=== PATIENT | male | born 1945 | race Caucasian/White ===

== ENCOUNTER 2020-07-27 21:09 | Emergency (ER) | payer MEDICARE, SELFPAY ==
[2020-07-27 21:10] VITALS: BP 131/75; PULSE 85; RESP 20; TEMP 35.7; O2SAT 96; BMI 18.0
--- NOTE | 2020-07-27 22:26 | ED_ITS ---
HPI - General Adult General Chief complaint: General Medical <Trenton Sanders MD - Last Filed: 07/28/20 01:43> Stated complaint: HALLAUCINATIONS <Trenton Sanders MD - Last Filed: 07/28/20 01:43> Time Seen by Provider: 07/27/20 22:26 <Trenton Sanders MD - Last Filed: 07/28/20 01:43> Source: patient <Trenton Sanders MD - Last Filed: 07/28/20 01:43> Mode of arrival: ambulatory <Trenton Sanders MD - Last Filed: 07/28/20 01:43> History of Present Illness HPI narrative: patient states that he has a history of hallucinations. patient states he is seeing people walking around with things on their head, bowls and fruit. Patient asking them to leave and put his cane through them <Trenton Sanders MD - Last Filed: 07/28/20 01:43> Onset (ago): month(s) <Trenton Sanders MD - Last Filed: 07/28/20 01:43> Severity: moderate <Trenton Sanders MD - Last Filed: 07/28/20 01:43> Associated symptoms: confusion <Trenton Sanders MD - Last Filed: 07/28/20 01:43> Related Data Allergies/adverse reactions: Allergies Allergy/AdvReac Type Severity Reaction Status Date / Time aspirin [ASA] Allergy Unknown UNKNOWN Unverified 06/28/20 15:05 <Trenton Sanders MD - Last Filed: 07/28/20 01:43> Review of Systems Constitutional: Constitutional: Reports no additional constitutional complaints <Trenton Sanders MD - Last Filed: 07/28/20 01:43> Eyes: Eyes: Reports no additional eye complaints <Trenton Sanders MD - Last Filed: 07/28/20 01:43> ENT: Denies dizziness <Trenton Sanders MD - Last Filed: 07/28/20 01:43> Cardiovascular: Cardiovascular: Reports no additional cardiovascular comp laints <Trenton Sanders MD - Last Filed: 07/28/20 01:43> Respiratory: Respiratory: Reports as per HPI <Trenton Sanders MD - Last Filed: 07/28/20 01:43> Gastrointestinal: Gastrointestinal: Reports no additional gastrointestinal complaints <Trenton Sanders MD - Last Filed: 07/28/20 01:43> Musculoskeletal: Musculoskeletal: Reports no additional musculoskeletal complaints <Trenton Sanders MD - Last Filed: 07/28/20 01:43> Integumentary/Breasts: Skin/Breast: Denies rash <Trenton Sanders MD - Last Filed: 07/28/20 01:43> Neurologic: Reports system reviewed and no additional complaints, except as documented, Denies dizziness and Denies Sensory deficit (Neuro) <Trenton Sanders MD - Last Filed: 07/28/20 01:43> Psychiatric: Psychiatric: Reports anxiety, Reports visual hallucinations and Reports hallucinations <Trenton Sanders MD - Last Filed: 07/28/20 01:43> PMF Past Medical History Medical History: Medical History (Updated 07/28/20 @ 14:05 by Lukas Wall MD) COPD (chronic obstructive pulmonary disease) Parkinson disease <Trenton Sanders MD - Last Filed: 07/28/20 01:43> Social History Social History: Social History Alcohol intake: never Smoking Status: Never smoker Use of substances other than those prescribed or required for medical reasons: No Advance Directives: No Advance Directives Information Provided: Yes <Trenton Sanders MD - Last Filed: 07/28/20 01:43> Physical Exam Vital Signs: Vital Signs: Vital Signs Temp Pulse Resp BP Pulse Ox 07/28/20 13:09 98.2 F 81 16 140/79 H 96 07/28/20 11:31 98.3 F 82 16 150/82 H 98 07/28/20 06:00 75 16 136/85 07/28/20 04:00 99.6 F 72 16 129/72 98 07/28/20 03:55 72 16 129/72 98 07/28/20 01:47 79 16 127/75 07/27/20 23:40 99.6 F 80 18 137/75 07/27/20 22:33 98.3 F 78 18 154/75 H 98 07/27/20 21:10 96.3 F L 85 20 131/75 96 Body Mass Index 18.0 <Trenton Sanders MD - Last Filed: 07/28/20 01:43> Vital Signs: Vital Signs Temp Pulse Resp BP Pulse Ox 07/28/20 13:09 98.2 F 81 16 140/79 H 96 07/28/20 11:31 98.3 F 82 16 150/82 H 98 07/28/20 06:00 75 16 136/85 07/28/20 04:00 99.6 F 72 16 129/72 98 07/28/20 03:55 72 16 129/72 98 07/28/20 01:47 79 16 127/75 07/27/20 23:40 99.6 F 80 18 137/75 07/27/20 22:33 98.3 F 78 18 154/75 H 98 07/27/20 21:10 96.3 F L 85 20 131/75 96 Body Mass Index 18.0 <Lukas Wall MD - Last Filed: 07/28/20 14:09> Const: Other: elderly thin male <Trenton Sanders MD - Last Filed: 07/28/20 01:43> Orientation/consciousness: oriented to person and patient oriented x3 <Trenton Sanders MD - Last Filed: 07/28/20 01:43> Limitations: no limitations <Trenton Sanders MD - Last Filed: 07/28/20 01:43> HENMT: Head: Yes normal to inspection <Trenton Sanders MD - Last Filed: 07/28/20 01:43> Ears: external ears normal <Trenton Sanders MD - Last Filed: 07/28/20 01:43> General nose exam: Normal external nose present <Trenton Sanders MD - Last Filed: 07/28/20 01:43> Mouth: Normal oral and palatal mucosa present and oropharynx normal <Trenton Sanders MD - Last Filed: 07/28/20 01:43> Throat: Yes posterior oropharynx normal <Trenton Sanders MD - Last Filed: 07/28/20 01:43> Eyes: General: appearance normal, both eyes and all related structures <Trenton Sanders MD - Last Filed: 07/28/20 01:43> Neck: Other: supple <Trenton Sanders MD - Last Filed: 07/28/20 01:43> Neck: Yes normal visual inspection <Trenton Sanders MD - Last Filed: 07/28/20 01:43> Chest: Chest palpation & inspection: normal inspection of the chest <Trenton Sanders MD - Last Filed: 07/28/20 01:43> Resp: Auscultation: clear to auscultation bilaterally <Trenton Sanders MD - Last Filed: 07/28/20 01:43> Cardio: Jugular venous distension: no JVD <Trenton Sanders MD - Last Filed: 07/28/20 01:43> Rate: regular rate <Trenton Sanders MD - Last Filed: 07/28/20 01:43> Rhythm: regular rhythm <Trenton Sanders MD - Last Filed: 07/28/20 01:43> Heart sounds: S1 normal heart sound present and S2 normal heart sound present <Trenton Sanders MD - Last Filed: 07/28/20 01:43> GI: Inspection: Yes normal to inspection <Trenton Sanders MD - Last Filed: 07/28/20 01:43> Palpation (GI): Soft to palpation, nontender and No hepatosplenomegaly present <Trenton Sanders MD - Last Filed: 07/28/20 01:43> Auscultation: normal bowel sounds <Trenton Sanders MD - Last Filed: 07/28/20 01:43> : General: Yes no CVA tenderness <Trenton Sanders MD - Last Filed: 07/28/20 01:43> Back/Spine/Pelvis: Back: no CVA tenderness <Trenton Sanders MD - Last Filed: 07/28/20 01:43> Skin: General skin exam: no rashes or lesions noted <Trenton Sanders MD - Last Filed: 07/28/20 01:43> Neuro: General: oriented to person and patient oriented x3 <Trenton Sanders MD - Last Filed: 07/28/20 01:43> Cranial nerves: Yes CN's II-XII intact bilaterally <Trenton Sanders MD - Last Filed: 07/28/20 01:43> Motor exam (neuro): 5/5 motor strength present throughout <Trenton Sanders MD - Last Filed: 07/28/20 01:43> Sensory Exam: No Sensory deficit (Neuro) <Trenton Sanders MD - Last Filed: 07/28/20 01:43> Extrem: General: Yes normal to inspection <Trenton Sanders MD - Last Filed: 07/28/20 01:43> Psych: Appearance: grossly normal <Trenton Sanders MD - Last Filed: 07/28/20 01:43> Course Course Course Narrative: CT and labs are normal so far will have patient evaluated by crisis <Trenton Sanders MD - Last Filed: 07/28/20 01:43> 74 years old male seen initially by Dr. mcghee liver patient was seen yesterday for hallucination, patient remained in the emergency room for further BHN and evaluation, patient has unremarkable labs, patient was evaluated by BHN who discussed the case with the who she is okay to take the patient back home, patient himself decline SI, HI, or hallucinations. Will discharge the patient home. <Lukas Wall MD - Last Filed: 07/28/20 14:09> Reevaluation(s) Reevaluation #1: Patient medically cleared will have crises see patient for geripsych eval <Trenton Sanders MD - Last Filed: 07/28/20 01:43> Medical Decision Making Lab Data Result diagrams: : 07/28/20 00:41 07/28/20 00:41 <Trenton Sanders MD - Last Filed: 07/28/20 01:43> Labs: Lab Results 07/28/20 07/28/20 07/28/20 Range/Units 00:41 00:41 00:41 WBC 8.5 (4.8-10.8) X10*3/uL RBC 4.21 L (4.60-5.80) X10*6/uL Hgb 12.3 L (14.0-18.0) g/dl Hct 38.4 L (42-52) % MCV 91.2 (80-98) fL MCH 29.2 (27.0-33.0) pg MCHC 32.0 (31.0-36.0) g/dl RDW 13.4 (11.0-16.0) % Plt Count 260 (160-400) X10*3/uL MPV 10.1 (9.4-12.4) fL Immature Gran % (Auto) 0.2 (0.0-0.4) % Neut % (Auto) 77.1 H (45-73) % Lymph % (Auto) 12.6 L (20-40) % Vill[place]ba % (Auto) 7.4 (2-11) % Eos % (Auto) 2.2 (0-4) % Baso % (Auto) 0.5 (0-2) % Lymph # (Auto) 1.1 L (1.2-4.9) X10*3/uL [place] # (Auto) 0.6 (0.1-1.2) X10*3/uL Eos # (Auto) 0.2 (0.0-0.4) X10*3/uL Baso # (Auto) 0.0 (0.0-0.2) X10*3/uL Abs Immat Gran (auto) 0.02 (0.00-0.03) X10*3/uL Absolute Neuts (auto) 6.6 (2.0-8.3) X10*3/uL Absolute Nucleated RBC 0.000 (0.0-0.012) X10*3/uL Nucleated RBC % (auto) 0.0 (0.0-0.2) /100WBC Sodium 138 (135-145) mmol/L Potassium 4.3 (3.3-5.1) mmol/l Chloride 100 (96-108) mmol/L Carbon Dioxide 29 (22-29) mmol/L Anion Gap 13 (12-20) BUN 22 H (9-16) mg/dL Creatinine 1.03 (0.5-1.4) mg/dL Estim Creat Clear Calc 47.7 Estimated GFR > 60 Random Glucose 113 (60-115) mg/dL Calcium 8.6 (8.4-10.2) mg/dL Total Bilirubin 0.4 (0.0-1.0) mg/dL AST 9 (5-37) U/L ALT < 6 (0-40) U/L Alkaline Phosphatase 97 (39-117) U/L Total Protein 6.1 L (6.5-8.0) g/dL Albumin 3.7 (3.5-5.0) g/dL Urine Color Urine Appearance Urine pH (5.0-8.0) Ur Specific [place] (1.005-1.025) Urine Protein (NEG-TRACE) MG/DL Urine Glucose (UA) (NEG) MG/DL Urine Ketones (NEG) MG/DL Urine Blood (NEG) Urine Nitrite (NEG) Ur Leukocyte Esterase (NEG) Salicylates < 5.0 L (15-30) mg/dL Urine Opiates Screen (Not Detect) Acetaminophen < 1 (<30) mcg/mL Ur Barbiturates Screen (Not Detect) Ur Phencyclidine Scrn (Not Detect) Ur Amphetamines Screen (Not Detect) U Benzodiazepines Scrn (Not Detect) Urine Cocaine Screen (Not Detect) U Marijuana (THC) Screen (Not Detect) Ethyl Alcohol < 10 mg/dL 07/28/20 07/28/20 Range/Units 00:44 00:44 WBC (4.8-10.8) X10*3/uL RBC (4.60-5.80) X10*6/uL Hgb (14.0-18.0) g/dl Hct (42-52) % MCV (80-98) fL MCH (27.0-33.0) pg MCHC (31.0-36.0) g/dl RDW (11.0-16.0) % Plt Count (160-400) X10*3/uL MPV (9.4-12.4) fL Immature Gran % (Auto) (0.0-0.4) % Neut % (Auto) (45-73) % Lymph % (Auto) (20-40) % Villalba % (Auto) (2-11) % Eos % (Auto) (0-4) % Baso % (Auto) (0-2) % Lymph # (Auto) (1.2-4.9) X10*3/uL [place] # (Auto) (0.1-1.2) X10*3/uL Eos # (Auto) (0.0-0.4) X10*3/uL Baso # (Auto) (0.0-0.2) X10*3/uL Abs Immat Gran (auto) (0.00-0.03) X10*3/uL Absolute Neuts (auto) (2.0-8.3) X10*3/uL Absolute Nucleated RBC (0.0-0.012) X10*3/uL Nucleated RBC % (auto) (0.0-0.2) /100WBC Sodium (135-145) mmol/L Potassium (3.3-5.1) mmol/l Chloride (96-108) mmol/L Carbon Dioxide (22-29) mmol/L Anion Gap (12-20) BUN (9-16) mg/dL Creatinine (0.5-1.4) mg/dL Estim Creat Clear Calc Estimated GFR Random Glucose (60-115) mg/dL Calcium (8.4-10.2) mg/dL Total Bilirubin (0.0-1.0) mg/dL AST (5-37) U/L ALT (0-40) U/L Alkaline Phosphatase (39-117) U/L Total Protein (6.5-8.0) g/dL Albumin (3.5-5.0) g/dL Urine Color STRAW Urine Appearance CLEAR Urine pH 7.0 (5.0-8.0) Ur Specific [place] <= 1.005 (1.005-1.025) Urine Protein NEG (NEG-TRACE) MG/DL Urine Glucose (UA) NEG (NEG) MG/DL Urine Ketones NEG (NEG) MG/DL Urine Blood NEG (NEG) Urine Nitrite NEG (NEG) Ur Leukocyte Esterase NEG (NEG) Salicylates (15-30) mg/dL Urine Opiates Screen Not Detected (Not Detect) Acetaminophen (<30) mcg/mL Ur Barbiturates Screen Not Detected (Not Detect) Ur Phencyclidine Scrn Not Detected (Not Detect) Ur Amphetamines Screen Not Detected (Not Detect) U Benzodiazepines Scrn Not Detected (Not Detect) Urine Cocaine Screen Not Detected (Not Detect) U Marijuana (THC) Screen Not Detected (Not Detect) Ethyl Alcohol mg/dL <Trenton Sanders MD - Last Filed: 07/28/20 01:43> Lab Results 07/28/20 07/28/20 07/28/20 Range/Units 00:41 00:41 00:41 WBC 8.5 (4.8-10.8) X10*3/uL RBC 4.21 L (4.60-5.80) X10*6/uL Hgb 12.3 L (14.0-18.0) g/dl Hct 38.4 L (42-52) % MCV 91.2 (80-98) fL MCH 29.2 (27.0-33.0) pg MCHC 32.0 (31.0-36.0) g/dl RDW 13.4 (11.0-16.0) % Plt Count 260 (160-400) X10*3/uL MPV 10.1 (9.4-12.4) fL Immature Gran % (Auto) 0.2 (0.0-0.4) % Neut % (Auto) 77.1 H (45-73) % Lymph % (Auto) 12.6 L (20-40) % Villalba % (Auto) 7.4 (2-11) % Eos % (Auto) 2.2 (0-4) % Baso % (Auto) 0.5 (0-2) % Lymph # (Auto) 1.1 L (1.2-4.9) X10*3/uL [place] # (Auto) 0.6 (0.1-1.2) X10*3/uL Eos # (Auto) 0.2 (0.0-0.4) X10*3/uL Baso # (Auto) 0.0 (0.0-0.2) X10*3/uL Abs Immat Gran (auto) 0.02 (0.00-0.03) X10*3/uL Absolute Neuts (auto) 6.6 (2.0-8.3) X10*3/uL Absolute Nucleated RBC 0.000 (0.0-0.012) X10*3/uL Nucleated RBC % (auto) 0.0 (0.0-0.2) /100WBC Sodium 138 (135-145) mmol/L Potassium 4.3 (3.3-5.1) mmol/l Chloride 100 (96-108) mmol/L Carbon Dioxide 29 (22-29) mmol/L Anion Gap 13 (12-20) BUN 22 H (9-16) mg/dL Creatinine 1.03 (0.5-1.4) mg/dL Estim Creat Clear Calc 47.7 Estimated GFR > 60 Random Glucose 113 (60-115) mg/dL Calcium 8.6 (8.4-10.2) mg/dL Total Bilirubin 0.4 (0.0-1.0) mg/dL AST 9 (5-37) U/L ALT < 6 (0-40) U/L Alkaline Phosphatase 97 (39-117) U/L Total Protein 6.1 L (6.5-8.0) g/dL Albumin 3.7 (3.5-5.0) g/dL Urine Color Urine Appearance Urine pH (5.0-8.0) Ur Specific [place] (1.005-1.025) Urine Protein (NEG-TRACE) MG/DL Urine Glucose (UA) (NEG) MG/DL Urine Ketones (NEG) MG/DL Urine Blood (NEG) Urine Nitrite (NEG) Ur Leukocyte Esterase (NEG) Salicylates < 5.0 L (15-30) mg/dL Urine Opiates Screen (Not Detect) Acetaminophen < 1 (<30) mcg/mL Ur Barbiturates Screen (Not Detect) Ur Phencyclidine Scrn (Not Detect) Ur Amphetamines Screen (Not Detect) U Benzodiazepines Scrn (Not Detect) Urine Cocaine Screen (Not Detect) U Marijuana (THC) Screen (Not Detect) Ethyl Alcohol < 10 mg/dL 07/28/20 07/28/20 Range/Units 00:44 00:44 WBC (4.8-10.8) X10*3/uL RBC (4.60-5.80) X10*6/uL Hgb (14.0-18.0) g/dl Hct (42-52) % MCV (80-98) fL MCH (27.0-33.0) pg MCHC (31.0-36.0) g/dl RDW (11.0-16.0) % Plt Count (160-400) X10*3/uL MPV (9.4-12.4) fL Immature Gran % (Auto) (0.0-0.4) % Neut % (Auto) (45-73) % Lymph % (Auto) (20-40) % [place] % (Auto) (2-11) % Eos % (Auto) (0-4) % Baso % (Auto) (0-2) % Lymph # (Auto) (1.2-4.9) X10*3/uL [place] # (Auto) (0.1-1.2) X10*3/uL Eos # (Auto) (0.0-0.4) X10*3/uL Baso # (Auto) (0.0-0.2) X10*3/uL Abs Immat Gran (auto) (0.00-0.03) X10*3/uL Absolute Neuts (auto) (2.0-8.3) X10*3/uL Absolute Nucleated RBC (0.0-0.012) X10*3/uL Nucleated RBC % (auto) (0.0-0.2) /100WBC Sodium (135-145) mmol/L Potassium (3.3-5.1) mmol/l Chloride (96-108) mmol/L Carbon Dioxide (22-29) mmol/L Anion Gap (12-20) BUN (9-16) mg/dL Creatinine (0.5-1.4) mg/dL Estim Creat Clear Calc Estimated GFR Random Glucose (60-115) mg/dL Calcium (8.4-10.2) mg/dL Total Bilirubin (0.0-1.0) mg/dL AST (5-37) U/L ALT (0-40) U/L Alkaline Phosphatase (39-117) U/L Total Protein (6.5-8.0) g/dL Albumin (3.5-5.0) g/dL Urine Color STRAW Urine Appearance CLEAR Urine pH 7.0 (5.0-8.0) Ur Specific [place] <= 1.005 (1.005-1.025) Urine Protein NEG (NEG-TRACE) MG/DL Urine Glucose (UA) NEG (NEG) MG/DL Urine Ketones NEG (NEG) MG/DL Urine Blood NEG (NEG) Urine Nitrite NEG (NEG) Ur Leukocyte Esterase NEG (NEG) Salicylates (15-30) mg/dL Urine Opiates Screen Not Detected (Not Detect) Acetaminophen (<30) mcg/mL Ur Barbiturates Screen Not Detected (Not Detect) Ur Phencyclidine Scrn Not Detected (Not Detect) Ur Amphetamines Screen Not Detected (Not Detect) U Benzodiazepines Scrn Not Detected (Not Detect) Urine Cocaine Screen Not Detected (Not Detect) U Marijuana (THC) Screen Not Detected (Not Detect) Ethyl Alcohol mg/dL <Lukas Wall MD - Last Filed: 07/28/20 14:09> Discharge Plan Discharge Clinical Impression: Generalized weakness, Hallucination Failure to thrive Qualifiers: Failure to thrive age range: in adult Qualified Code(s): R62.7 - Adult failure to thrive <Trenton Sanders MD - Last Filed: 07/28/20 01:43> Patient Disposition: Home, Self-Care <Trenton Sanders MD - Last Filed: 07/28/20 01:43> Instructions: Weakness (ED), Hallucinations (ED) <Trenton Sanders MD - Last Filed: 07/28/20 01:43>
[2020-07-27 22:33] VITALS: BP 154/75; PULSE 78; RESP 18; TEMP 36.8; O2SAT 98
--- NOTE | 2020-07-27 22:35 | CT_ITS ---
EXAMINATION: CT HEAD WITHOUT CONTRAST CLINICAL INFORMATION: Hallucinations COMPARISON: 08/24/2019 TECHNIQUE: Contiguous axial imaging was performed from the skull base to vertex without intravenous administration of contrast. This CT examination was performed using dose optimization techniques as appropriate, variously including the following: *Automated exposure control *Adjustment of mA and/or kV according to patient size (this includes techniques or standardized protocols for targeted exams where dose is matched to indication/reason for exam; i.e. extremities or head) *Use of iterative reconstruction technique DLP: 688 mGy-cm FINDINGS: There is no evidence of acute intracranial hemorrhage or territorial infarction. No abnormal mass effect or midline shift is seen. Fan to white matter differentiation is well preserved. No extra-axial fluid collections are identified. The ventricles are normal in size. Mild volume loss is noted. The osseous structures and soft tissues are normal. The mastoid air cells and visualized portions of the paranasal sinuses are well aerated. IMPRESSION: No acute intracranial pathology.
--- NOTE | 2020-07-27 22:54 | PC.NURSE ---
patient stated to provider that he was seeing people with bowls on their head though he realizes they arent actually there because he puts his cane through their heads. patient denies si/hi. patient is currently a&ox2- person/place
--- NOTE | 2020-07-27 23:01 | PC.NURSE ---
patient transported to ct scan
--- NOTE | 2020-07-27 23:05 | PC.NURSE ---
pt still in room, held off from ct scan
[2020-07-27 23:40] VITALS: BP 137/75; PULSE 80; RESP 18; TEMP 37.6
[2020-07-28 00:52] LABS: Basophils Percent Auto 0.5 % (0-2); Eosinophils Absolute Auto 0.2 X10*3/uL (0.0-0.4); Eosinophils Percent Auto 2.2 % (0-4); Hematocrit 38.4 % (42-52); Hemoglobin 12.3 g/dl (14.0-18.0); Imm Gran Abs Auto 0.02 X10*3/uL (0.00-0.03); Imm Gran Pct Auto 0.2 % (0.0-0.4); Lymphocytes Absolute Auto 1.1 X10*3/uL (1.2-4.9); Lymphocytes Percent Auto 12.6 % (20-40); MANUAL DIFF FLAG NO; Mean Corpuscular Hemoglobin 29.2 pg (27.0-33.0); Mean Corpuscular Volume 91.2 fL (80-98); Mean Platelet Volume 10.1 fL (9.4-12.4); Monocytes Absolute Auto 0.6 X10*3/uL (0.1-1.2); Monocytes Percent Auto 7.4 % (2-11); Neutrophils Absolute Auto 6.6 X10*3/uL (2.0-8.3); Neutrophils Percent Auto 77.1 % (45-73); Platelet Count 260 X10*3/uL (160-400); Red Blood Count 4.21 X10*6/uL (4.60-5.80); Red Cell Distribution Width 13.4 % (11.0-16.0); White Blood Count 8.5 X10*3/uL (4.8-10.8)
[2020-07-28 00:59] LABS: Glucose Urine UA NEG (NEG); Leukocyte Esterase Urine NEG (NEG); Nitrite Urine NEG (NEG); Specific Gravity - Urine <= 1.005 (1.005-1.025); Urine Blood NEG (NEG); Urine Ketones NEG (NEG); Urine Protein NEG (NEG-TRACE)
[2020-07-28 01:00] LABS: Appearance Urine CLEAR; Color Urine STRAW; UACC Culture Trigger NO
[2020-07-28 01:14] LABS: Amphetamine Screen Urine Not Detected (Not Detect); Barbiturates, Urine Not Detected (Not Detect); Benzodiazepines Screen Urine Not Detected (Not Detect); Cannabinoid Screen Urine Not Detected (Not Detect); Cocaine Screen Urine Not Detected (Not Detect); Opiate Screen Urine Not Detected (Not Detect); Phencyclidine Screen Urine Not Detected (Not Detect)
[2020-07-28 01:22] LABS: Ethanol < 10 mg/dL
[2020-07-28 01:29] LABS: Acetaminophen LAB < 1 mcg/mL (<30); Alanine Aminotransferase < 6 U/L (0-40); Albumin Level 3.7 g/dL (3.5-5.0); Alkaline Phosphatase 97 U/L (39-117); Anion Gap 13 (12-20); Aspartate Amino Transferase 9 U/L (5-37); Bilirubin Total 0.4 mg/dL (0.0-1.0); Blood Urea Nitrogen 22 mg/dL (9-16); Calcium 8.6 mg/dL (8.4-10.2); Carbon Dioxide 29 mmol/L (22-29); Chloride 100 mmol/L (96-108); Creatinine Clr Calc Pharmacy 47.7; Estimated Glomerular Filt Rate > 60; Glucose Random 113 mg/dL (60-115); Potassium 4.3 mmol/l (3.3-5.1); Sodium 138 mmol/L (135-145); Total Protein 6.1 g/dL (6.5-8.0)
[2020-07-28 01:42] LABS: Salicylate < 5.0 mg/dL (15-30)
[2020-07-28 01:47] VITALS: BP 127/75; PULSE 79; RESP 16
--- NOTE | 2020-07-28 02:38 | PC.NURSE ---
spoke with pt and pt has been newly dx with parkinsons. is going home and will check back in the morning.
--- NOTE | 2020-07-28 03:36 | PC.NURSE ---
faxed to [facility]
--- NOTE | 2020-07-28 03:54 | PC.NURSE ---
PT VOIDING IN URINAL. PT CLEANED FOR INCONT IN THE BED
[2020-07-28 03:55] VITALS: BP 129/72; PULSE 72; RESP 16; O2SAT 98
[2020-07-28 04:00] VITALS: BP 129/72; PULSE 72; RESP 16; TEMP 37.6; O2SAT 98
--- NOTE | 2020-07-28 04:11 | PC.NURSE ---
pt is alert to person place and time. pt states that he can see his son in the room and no one is there. pt asks about his and has been reminded that she has gone home. cell number [phone]. pt offered food and drink. no difficulty swallowing water. has voided 3 times wnl. vitals stable. lights dimmed and repositioned for rest.
[2020-07-28 06:00] VITALS: BP 136/85; PULSE 75; RESP 16
--- NOTE | 2020-07-28 07:28 | PC.NURSE ---
REPORT TAKEN FROM MONICA CAIN PT LYING IN BED ATT, RR EVEN UNLABORED, A&OX3. AWAITING BREAKFAST TRAY. PER PREVIOUS SHIFT RN, FAXED TO [facility], AWAITING EVAL. NO HALLUCINATIONS NOTED AT THIS TIME, PT ASKING TO WATCH TELEVISION.
--- NOTE | 2020-07-28 09:26 | PC.NURSE ---
pt ate 100% breakfast. able to use bedside urinal w assistance from this rn. pt has pleasant affect. pt asking about hearing his daughter talking outside the room. pt reoriented to situation and shown that it was other staff members voice in hallway. pt still awaiting eval, watching tv calm and cooperative. nad.
[2020-07-28 11:31] VITALS: BP 150/82; PULSE 82; RESP 16; TEMP 36.8; O2SAT 98
[2020-07-28 13:09] VITALS: BP 140/79; PULSE 81; RESP 16; TEMP 36.8; O2SAT 96
== END 2020-07-28 14:43 | disposition home or self-care (01) ==
PROVIDERS: Emergency Provider Emergency Medicine; PCP Internal Medicine
DX: R62.7 Adult failure to thrive (principal); R44.3 Hallucinations, unspecified; R53.1 Weakness; G20 Parkinson's disease; Z79.899 Other long term (current) drug therapy
CPT/HCPCS: 36415; 70450; 80053; 80307; 80320; 81003; 85025; 99284; G0480

== ENCOUNTER 2020-08-22 16:01 | Outpatient (REF) | payer MEDICARE, OTHER, SELFPAY | END 2020-08-22 16:02 | disposition home or self-care (01) | LOC: HO.LAB 16:01 | PROVIDERS: PCP Internal Medicine; Visit Provider Internal Medicine | DX: Z20.828 Contact with and (suspected) exposure to other viral communicable diseases (principal) | CPT/HCPCS: C9803; U0003 ==

== ENCOUNTER 2020-08-23 13:34 | Emergency (ER) | payer OTHER, SELFPAY ==
[2020-08-23 13:56] VITALS: BP 153/85; PULSE 80; RESP 20; TEMP 36.8; O2SAT 92; BMI 17.2
[2020-08-23 14:00] VITALS: BP 133/87; PULSE 77; RESP 22; TEMP 36.8; O2SAT 94
--- NOTE | 2020-08-23 14:12 | ECG_ITS ---
Test Reason : FALL/WEAKNESS Blood Pressure : / mmHG Vent. Rate : 072 BPM Atrial Rate : 072 BPM P-R Int : 154 ms QRS Dur : 088 ms QT Int : 386 ms P-R-T Axes : 079 -18 049 degrees QTc Int : 422 ms Normal sinus rhythm Moderate voltage criteria for LVH, may be normal variant Low voltage QRS Abnormal ECG When compared with ECG of 25-JUN-2020 23:37, T wave inversion no longer evident in Lateral leads Referred By: Nga Guillaume Electronically Signed By:LOUISE LARA MD
--- NOTE | 2020-08-23 14:12 | CT_ITS ---
EXAMINATION: CT HEAD WITHOUT CONTRAST CLINICAL INFORMATION: Generalized weakness. Multiple falls. COMPARISON: CT head 07/27/2020 TECHNIQUE: Contiguous axial imaging was performed from the skull base to vertex without intravenous administration of contrast. Coronal and sagittal reformatted images are performed at the CT scanner This CT examination was performed using dose optimization techniques as appropriate, variously including the following: *Automated exposure control *Adjustment of mA and/or kV according to patient size (this includes techniques or standardized protocols for targeted exams where dose is matched to indication/reason for exam; i.e. extremities or head) *Use of iterative reconstruction technique DLP: 668 mGy-cm FINDINGS: There is a low attenuating left-sided subdural hygroma measuring 1 cm transverse diameter axial image 59 series 2 involving the frontal parietal region. This is new since prior CAT scan 07/27/2020. There is no acute hemorrhage. This does not cause significant mass effect. There is no midline shift. No focal parenchymal lesion. Fan to white matter differentiation is well preserved. There is mild age-appropriate atrophy with prominence of the ventricles and the sulci. There are vascular calcifications of the internal carotid arteries bilaterally. The osseous structures and soft tissues are normal. There is no skull fracture. The mastoid air cells and visualized portions of the paranasal sinuses are well aerated. CT/CT head/brain wo con IMPRESSION: Left-sided subdural hygroma new since prior CAT scan 07/27/2020. There is no acute intracranial hemorrhage or significant mass effect. This result was discussed with Nga Markham on 08/23/2020, 3:53 PM and it was ascertained that the content and urgency of the report was understood at the time of direct communication.
--- NOTE | 2020-08-23 14:12 | XR_ITS ---
EXAMINATION: XR CHEST CLINICAL INFORMATION: Productive cough right-sided rib cage fractures COMPARISON: Prior chest June 2020 TECHNIQUE: 2 views of the chest were obtained. FINDINGS: There are minimally displaced bilateral rib fractures likely acute or subacute. Lungs are clear. Post surgical changes overlie the lower chest midline unchanged. Cardiac silhouette mediastinum pulmonary vascularity normal. XR/XR chest 2V IMPRESSION: Bilateral rib fractures of uncertain acuity but probably subacute
[2020-08-23 15:05] LABS: Glucose Urine UA NEG (NEG); Leukocyte Esterase Urine NEG (NEG); Nitrite Urine NEG (NEG); Urine Blood NEG (NEG); Urine Ketones NEG (NEG); Urine Protein NEG (NEG-TRACE)
[2020-08-23 15:06] LABS: Basophils Absolute Auto 0.1 X10*3/uL (0.0-0.2); Basophils Percent Auto 0.5 % (0-2); Eosinophils Absolute Auto 0.1 X10*3/uL (0.0-0.4); Eosinophils Percent Auto 0.6 % (0-4); Hematocrit 38.5 % (42-52); Hemoglobin 12.2 g/dl (14.0-18.0); Imm Gran Abs Auto 0.03 X10*3/uL (0.00-0.03); Imm Gran Pct Auto 0.3 % (0.0-0.4); Lymphocytes Absolute Auto 0.9 X10*3/uL (1.2-4.9); MANUAL DIFF FLAG NO; Mean Corpuscular HGB Conc 31.7 g/dl (31.0-36.0); Mean Corpuscular Volume 91.7 fL (80-98); Mean Platelet Volume 9.8 fL (9.4-12.4); Monocytes Absolute Auto 0.6 X10*3/uL (0.1-1.2); Monocytes Percent Auto 5.6 % (2-11); Neutrophils Absolute Auto 9.2 X10*3/uL (2.0-8.3); Platelet Count 318 X10*3/uL (160-400); Red Cell Distribution Width 13.5 % (11.0-16.0); White Blood Count 10.8 X10*3/uL (4.8-10.8)
[2020-08-23 15:06] LABS: Appearance Urine CLEAR; Color Urine YELLOW
[2020-08-23 15:11] LABS: Prothrombin Time 12.4 SEC (10.8-13.0)
[2020-08-23] MEDS: 0.9 % Sodium Chloride 1,000 ML 999 ML IVCONT (15:15)
--- NOTE | 2020-08-23 15:21 | ED_ITS ---
HPI - Weakness General Chief complaint: Weakness <HUDSON Amador - Last Filed: 08/23/20 18:41> Stated complaint: SOB <HUDSON Amador Last Filed: 08/23/20 18:41> Time Seen by Provider: 08/23/20 13:45 <HUDSON Amador Last Filed: 08/23/20 18:41> Source: patient and family () <HUDSON Amador Last Filed: 08/23/20 18:41> Mode of arrival: ambulatory <HUDSON Amador Last Filed: 08/23/20 18:41> Limitations: physical limitation (Parkinson's disease) <HUDSON Amador Last Filed: 08/23/20 18:41> History of Present Illness HPI Narrative: 74yoM c PMHx of Parkinson's disease, DM, HTN, Anemia, GERD and COPD presenting to the ED after being brought by his for increased weakness, confusion and multiple falls for the past few weeks worse within the past 3 days. Patient's reports that the patient fell 3 days ago and had outpatient imaging and has multiple right-sided rib cage fractures although was not seen by a provider. She also notes that the patient has been having visual hallucination seen people that are not there. She reports that the patient has been going to his medications that she organized and dispenses to him and taking the medications at any time that he wants. She also found some medications on the floor. She reports her daughter's school reported that they had to cafeteria employee that tested positive for COVID therefore the patient, his and his daughter all had COVID swabs yesterday which are now pending they were done at [facility]. Patient admits to having a productive cough. Patient and deny any additional complaints or concerns at this time. is interested in short-term rehab not long-term care just so the patient can his strength can come back home. <HUDSON Amador Last Filed: 08/23/20 18:41> Related Data Home medications: Home Medications Medication Instructions Recorded Confirmed Lactobacillus acidophilus 1,000 mmu cells PO DAILY 08/23/20 08/23/20 albuterol sulfate 2 puff PO Q4H PRN 08/23/20 08/23/20 bisacodyl 1 tab PO TID PRN 08/23/20 08/23/20 carbidopa-levodopa 2 tab PO 5XD 08/23/20 08/23/20 cetirizine 10 mg PO DAILY 08/23/20 08/23/20 cholecalciferol (vitamin D3) 50 mcg PO DAILY 08/23/20 08/23/20 [Vitamin D3] docusate sodium 100 mg PO DAILY PRN 08/23/20 08/23/20 duloxetine 20 mg PO BID 08/23/20 08/23/20 ferrous gluconate 324 mg PO DAILY 08/23/20 08/23/20 finasteride 5 mg PO BEDTIME 08/23/20 08/23/20 fluticasone propionate 2 spray INTRANASAL QAM 08/23/20 08/23/20 folic acid 1 mg PO DAILY 08/23/20 08/23/20 lorazepam 0.5 mg PO TID PRN 08/23/20 08/23/20 metoprolol succinate 25 mg PO DAILY 08/23/20 08/23/20 mirabegron [Myrbetriq] 50 mg PO DAILY 08/23/20 08/23/20 mirtazapine 30 mg PO BEDTIME 08/23/20 08/23/20 omeprazole 20 mg PO BID 08/23/20 08/23/20 ondansetron HCl [Zofran] 4 mg PO Q6H PRN 08/23/20 08/23/20 oxcarbazepine 150 mg PO BID 08/23/20 08/23/20 oxycodone 7.5 mg PO BID 08/23/20 08/23/20 polyethylene glycol 3350 [Miralax] 17 g PO DAILY PRN 08/23/20 08/23/20 sennosides [Senna Lax] 8.6 mg PO BID PRN 08/23/20 08/23/20 sucralfate 0.5 g PO TID 08/23/20 08/23/20 thiamine HCl (vitamin B1) 100 mg PO DAILY 08/23/20 08/23/20 <HUDSON Amador - Last Filed: 08/23/20 18:41> Allergies/Adverse reactions: Allergies Allergy/AdvReac Type Severity Reaction Status Date / Time aspirin [ASA] Allergy Unknown UNKNOWN Verified 08/23/20 16:16 <HUDSON Amador - Last Filed: 08/23/20 18:41> Review of Systems Review of Systems: Constitutional : No Weight loss, No Fever, No Chills, No Night Sweats, No Fatigue, No Malaise ENT/Mouth : No Hearing loss, No Ear Pain, No Nasal Congestion, No Sinus Pain, No Hoarseness, No sore throat, No Rhinorrhea, No Swallowing Difficulty Eyes: No Eye Pain, No Swelling, No Redness, No Foreign Body, No Discharge, No Vision Changes Cardiovascular : No Chest Pain, No SOB, No Dyspnea on Exertion, No Orthopnea, No Edema, No Palpitations Respiratory : + Cough, + Sputum, + Chest wall pain, No Wheezing, No Smoke Exposure, No Dyspnea Gastrointestinal : No Nausea, No Vomiting, No Diarrhea, No Constipation, No abdominal Pain, No Hematochezia, No Melena Genitourinary : no irregular bleeding, No Dysuria, No Urinary Frequency, No Carlton turia, No Urinary Incontinence, No Urgency, No Flank Pain, No Urinary Flow Changes, No Hesitancy Musculoskeletal : No joint pain, No Myalgias, No Joint Swelling Skin : No Skin Lesions, No rash Neuro : + Weakness, No Numbness, No Paresthesias, No Loss of Consciousness, No Dizziness, No Headache Psych : + Visual hallucinations, No Anxiety/Panic, No Depression, No SI/HI/AH Heme/Lymph: No Bruising, No Bleeding,No Lymphadenopathy Endocrine : No Polyuria, No Polydipsia, No Temperature Intolerance <HUDSON Amador - Last Filed: 08/23/20 18:41> Yes all other systems are reviewed and are negative <HUDSON Amador - Last Filed: 08/23/20 18:41> [facility] Past Medical History Attestation statement: The following information was validated with the patient. <HUDSON Amador - Last Filed: 08/23/20 18:41> Medical History: Medical History COPD (chronic obstructive pulmonary disease) Parkinson disease <HUDSON Amador - Last Filed: 08/23/20 18:41> Social History Social History: Social History Alcohol intake: never Smoking Status: Never smoker Smoked in Last 30 Days: No Advance Directives: No Advance Directives Information Provided: No <HUDSON Amador - Last Filed: 08/23/20 18:41> Physical Exam Vital Signs: Vital Signs: Last Vital Signs Temp 98.2 F 08/24/20 04:00 Pulse 80 08/24/20 06:00 Resp 16 08/24/20 06:00 BP 124/60 08/24/20 06:00 Pulse Ox 98 08/24/20 06:00 Body Mass Index 17.2 Vital signs have been reviewed as normal and appeared to be correct. Blood pressure normal. Heart rate normal. Respiration rate normal. Temperature normal. Oxygen saturation normal. <HUDSON Amador - Last Filed: 08/23/20 18:41> Vital Signs: Last Vital Signs Temp 98.2 F 08/24/20 04:00 Pulse 80 08/24/20 06:00 Resp 16 08/24/20 06:00 BP 124/60 08/24/20 06:00 Pulse Ox 98 08/24/20 06:00 Body Mass Index 17.2 <My Ross DO - Last Filed: 08/24/20 08:07> Appearance: Alert. Oriented X3. No acute distress. Head: Normal external exam. Normocephalic. Atraumatic. Able to rotate head bilaterally. Eyes: PERRLA. EOMI. No nystagmus noted. Conjunctiva and sclera normal. Eyelids normal. Corneal reflex normal. ENT: EAC normal. TM's Normal. Hearing normal. Pharynx normal. Uvula midline. tongue midline. Moist mucous membranes. Neck: Normal inspection. Neck supple. FROM. No adenopathy. No meningeal signs. CVS: Normal heart rate and rhythm. Heart sound normal. No murmurs noted. Pulses normal throughout. Respiratory: No respiratory distress. Painless inspiration. Breath sounds normal. No wheezes/rales/rhonchi noted. Chest TTP to right lateral chest wall. No accessory muscle usage noted or decreased air movement noted. Abdomen: Soft and nontender. Bowel sounds normal in all 4 quadrants. No distention noted. No organomegaly noted. No visible injury noted. Back: Full range of motion noted. Skin: Skin warm and dry. Normal skin color. Normal skin turgor. No rash es/lesions/lacerations noted. Extremities: No lower extremity edema. Extremities exhibit normal range of motion. Extremities nontender. Able to shrug shoulders bilaterally and keep up against resistance. Neuro: Oriented X 3. No motor deficit. No sensory deficit. Reflexes normal. Moving all extremities. No focal motor deficits. Cranial nerves II-XI intact bilaterally. Facial strength normal. Normal cognition. Speech normal. Gait normal. Strength 5/5 throughout. No pronator drift. No tremor noted. No fasciculations noted. Muscle tone normal throughout. No asterixis noted. Prheri-nc-plnc test normal. Heel to hernandez test normal. Tandem gait normal. Does not sway with eyes open. Romberg test negative. Rapid alternating movement upper extremity normal. Rapid alternating movement lower extremity normal. Hand drop from overhead-Mrs. face. No rigidity noted. NIHSS score 0. <HUDSON Amador - Last Filed: 08/23/20 18:41> Course Course Course Narrative: 14:15PM - 74yoM c PMHx of Parkinson's disease, DM, HTN, Anemia, GERD, COPD and multiple right sided rib cage fractures presenting to the ED after being brought by his for increased weakness, confusion and multiple falls for the past few weeks worse within the past 1-2 weeks c associated Visual hallucinations. Patient also reports a productive cough for the past 3 days after he sustained his rib crate fractures. Denies any additional complaints or concerns at this time. is interested in short-term rehab - Concern for CVA vs subdural hemorrhage vs electrolyte abnormality - Plan: Labs, CT scan of brain/cervical spine, CXR, EKG, UA then re-evaluated <HUDSON Amador - Last Filed: 08/23/20 18:41> Reevaluation(s) Reevaluation #1: - All labs WNL. EKG normal sinus rhythm no acute ischemic changes. CXR revealed bilateral minimally displaced rib fractures otherwise no other acute processes noted. Cervical spine CT WNL. CT scan of brain revealed left-sided subdural hygroma. Otherwise no other acute processes and no mass effect noted. There is no midline shift. - I spoke to the about this and she reports 10 days ago he did have a fall and he hit the back of his head and had a huge lump but was not seen for this. This is when she noticed that he has had increased confusion, weakness. - at this time awaiting a troponin then if normal will await physical therapy and case management for short time rehab placement. <HUDSON Amador - Last Filed: 08/23/20 18:41> Time: 15:53 <HUDSON Amador - Last Filed: 08/23/20 18:41> MDM - Weakness Medical Records Attestation: I reviewed the patient's medical records. <HUDSON Amador - Last Filed: 08/23/20 18:41> Lab Data Attestation: I reviewed the patient's lab results. <HUDSON Amador - Last Filed: 08/23/20 18:41> Result diagrams: : 08/23/20 14:57 08/23/20 14:57 <HUDSON Amador - Last Filed: 08/23/20 18:41> Labs: Lab Results 08/23/20 08/23/20 08/23/20 Range/Units 14:54 14:54 14:57 WBC 10.8 (4.8-10.8) X10*3/uL RBC 4.20 L (4.60-5.80) X10*6/uL Hgb 12.2 L (14.0-18.0) g/dl Hct 38.5 L (42-52) % MCV 91.7 (80-98) fL MCH 29.0 (27.0-33.0) pg MCHC 31.7 (31.0-36.0) g/dl RDW 13.5 (11.0-16.0) % Plt Count 318 (160-400) X10*3/uL MPV 9.8 (9.4-12.4) fL Immature Gran % (Auto) 0.3 (0.0-0.4) % Neut % (Auto) 85.0 H (45-73) % Lymph % (Auto) 8.0 L (20-40) % [place] % (Auto) 5.6 (2-11) % Eos % (Auto) 0.6 (0-4) % Baso % (Auto) 0.5 (0-2) % Lymph # (Auto) 0.9 L (1.2-4.9) X10*3/uL [place] # (Auto) 0.6 (0.1-1.2) X10*3/uL Eos # (Auto) 0.1 (0.0-0.4) X10*3/uL Baso # (Auto) 0.1 (0.0-0.2) X10*3/uL Abs Immat Gran (auto) 0.03 (0.00-0.03) X10*3/uL Absolute Neuts (auto) 9.2 H (2.0-8.3) X10*3/uL Absolute Nucleated RBC 0.000 (0.0-0.012) X10*3/uL Nucleated RBC % (auto) 0.0 (0.0-0.2) /100WBC Hold Purple Top PT (10.8-13.0) SEC INR (0.9-1.1) Sodium (135-145) mmol/L Potassium (3.3-5.1) mmol/l Chloride (96-108) mmol/L Carbon Dioxide (22-29) mmol/L Anion Gap (12-20) BUN (9-16) mg/dL Creatinine (0.5-1.4) mg/dL Estim Creat Clear Calc Estimated GFR Random Glucose (60-115) mg/dL Calcium (8.4-10.2) mg/dL Magnesium (1.6-2.6) mg/dL Total Bilirubin (0.0-1.0) mg/dL Direct Bilirubin (0.0-0.5) mg/dL AST (5-37) U/L ALT (0-40) U/L Alkaline Phosphatase (39-117) U/L Troponin I High Sens (<3.5-35.0) ng/L Total Protein (6.5-8.0) g/dL Albumin (3.5-5.0) g/dL Urine Color YELLOW Urine Appearance CLEAR Urine pH 6.0 (5.0-8.0) Ur Specific [place] 1.010 (1.005-1.025) Urine Protein NEG (NEG-TRACE) MG/DL Urine Glucose (UA) NEG (NEG) MG/DL Urine Ketones NEG (NEG) MG/DL Urine Blood NEG (NEG) Urine Nitrite NEG (NEG) Ur Leukocyte Esterase NEG (NEG) Coronavirus (PCR) NEGATIVE (Negative) Influenza Type A (PCR) NEGATIVE (Negative) Influenza Type B (PCR) NEGATIVE (Negative) RSV RNA Qual (PCR) NEGATIVE (Negative) 08/23/20 08/23/20 08/23/20 Range/Units 14:57 14:57 14:57 WBC (4.8-10.8) X10*3/uL RBC (4.60-5.80) X10*6/uL Hgb (14.0-18.0) g/dl Hct (42-52) % MCV (80-98) fL MCH (27.0-33.0) pg MCHC (31.0-36.0) g/dl RDW (11.0-16.0) % Plt Count (160-400) X10*3/uL MPV (9.4-12.4) fL Immature Gran % (Auto) (0.0-0.4) % Neut % (Auto) (45-73) % Lymph % (Auto) (20-40) % [place] % (Auto) (2-11) % Eos % (Auto) (0-4) % Baso % (Auto) (0-2) % Lymph # (Auto) (1.2-4.9) X10*3/uL [place] # (Auto) (0.1-1.2) X10*3/uL Eos # (Auto) (0.0-0.4) X10*3/uL Baso # (Auto) (0.0-0.2) X10*3/uL Abs Immat Gran (auto) (0.00-0.03) X10*3/uL Absolute Neuts (auto) (2.0-8.3) X10*3/uL Absolute Nucleated RBC (0.0-0.012) X10*3/uL Nucleated RBC % (auto) (0.0-0.2) /100WBC Hold Purple Top SEE NOTE PT 12.4 (10.8-13.0) SEC INR 1.0 (0.9-1.1) Sodium 138 (135-145) mmol/L Potassium 4.2 (3.3-5.1) mmol/l Chloride 102 (96-108) mmol/L Carbon Dioxide 25 (22-29) mmol/L Anion Gap 15 (12-20) BUN 22 H (9-16) mg/dL Creatinine 0.96 (0.5-1.4) mg/dL Estim Creat Clear Calc 50.3 Estimated GFR > 60 Random Glucose 115 (60-115) mg/dL Calcium 8.7 (8.4-10.2) mg/dL Magnesium 2.1 (1.6-2.6) mg/dL Total Bilirubin 0.6 (0.0-1.0) mg/dL Direct Bilirubin 0.3 (0.0-0.5) mg/dL AST 13 D (5-37) U/L ALT < 6 (0-40) U/L Alkaline Phosphatase 117 D (39-117) U/L Troponin I High Sens (<3.5-35.0) ng/L Total Protein 7.0 (6.5-8.0) g/dL Albumin 4.1 (3.5-5.0) g/dL Urine Color Urine Appearance Urine pH (5.0-8.0) Ur Specific [place] (1.005-1.025) Urine Protein (NEG-TRACE) MG/DL Urine Glucose (UA) (NEG) MG/DL Urine Ketones (NEG) MG/DL Urine Blood (NEG) Urine Nitrite (NEG) Ur Leukocyte Esterase (NEG) Coronavirus (PCR) (Negative) Influenza Type A (PCR) (Negative) Influenza Type B (PCR) (Negative) RSV RNA Qual (PCR) (Negative) 08/23/20 Range/Units 18:34 WBC (4.8-10.8) X10*3/uL RBC (4.60-5.80) X10*6/uL Hgb (14.0-18.0) g/dl Hct (42-52) % MCV (80-98) fL MCH (27.0-33.0) pg MCHC (31.0-36.0) g/dl RDW (11.0-16.0) % Plt Count (160-400) X10*3/uL MPV (9.4-12.4) fL Immature Gran % (Auto) (0.0-0.4) % Neut % (Auto) (45-73) % Lymph % (Auto) (20-40) % [place] % (Auto) (2-11) % Eos % (Auto) (0-4) % Baso % (Auto) (0-2) % Lymph # (Auto) (1.2-4.9) X10*3/uL [place] # (Auto) (0.1-1.2) X10*3/uL Eos # (Auto) (0.0-0.4) X10*3/uL Baso # (Auto) (0.0-0.2) X10*3/uL Abs Immat Gran (auto) (0.00-0.03) X10*3/uL Absolute Neuts (auto) (2.0-8.3) X10*3/uL Absolute Nucleated RBC (0.0-0.012) X10*3/uL Nucleated RBC % (auto) (0.0-0.2) /100WBC Hold Purple Top PT (10.8-13.0) SEC INR (0.9-1.1) Sodium (135-145) mmol/L Potassium (3.3-5.1) mmol/l Chloride (96-108) mmol/L Carbon Dioxide (22-29) mmol/L Anion Gap (12-20) BUN (9-16) mg/dL Creatinine (0.5-1.4) mg/dL Estim Creat Clear Calc Estimated GFR Random Glucose (60-115) mg/dL Calcium (8.4-10.2) mg/dL Magnesium (1.6-2.6) mg/dL Total Bilirubin (0.0-1.0) mg/dL Direct Bilirubin (0.0-0.5) mg/dL AST (5-37) U/L ALT (0-40) U/L Alkaline Phosphatase (39-117) U/L Troponin I High Sens < 3.5 (<3.5-35.0) ng/L Total Protein (6.5-8.0) g/dL Albumin (3.5-5.0) g/dL Urine Color Urine Appearance Urine pH (5.0-8.0) Ur Specific [place] (1.005-1.025) Urine Protein (NEG-TRACE) MG/DL Urine Glucose (UA) (NEG) MG/DL Urine Ketones (NEG) MG/DL Urine Blood (NEG) Urine Nitrite (NEG) Ur Leukocyte Esterase (NEG) Coronavirus (PCR) (Negative) Influenza Type A (PCR) (Negative) Influenza Type B (PCR) (Negative) RSV RNA Qual (PCR) (Negative) <HUDSON Amador - Last Filed: 08/23/20 18:41> Lab Results 08/23/20 08/23/20 08/23/20 Range/Units 14:54 14:54 14:57 WBC 10.8 (4.8-10.8) X10*3/uL RBC 4.20 L (4.60-5.80) X10*6/uL Hgb 12.2 L (14.0-18.0) g/dl Hct 38.5 L (42-52) % MCV 91.7 (80-98) fL MCH 29.0 (27.0-33.0) pg MCHC 31.7 (31.0-36.0) g/dl RDW 13.5 (11.0-16.0) % Plt Count 318 (160-400) X10*3/uL MPV 9.8 (9.4-12.4) fL Immature Gran % (Auto) 0.3 (0.0-0.4) % Neut % (Auto) 85.0 H (45-73) % Lymph % (Auto) 8.0 L (20-40) % [place] % (Auto) 5.6 (2-11) % Eos % (Auto) 0.6 (0-4) % Baso % (Auto) 0.5 (0-2) % Lymph # (Auto) 0.9 L (1.2-4.9) X10*3/uL [place] # (Auto) 0.6 (0.1-1.2) X10*3/uL Eos # (Auto) 0.1 (0.0-0.4) X10*3/uL Baso # (Auto) 0.1 (0.0-0.2) X10*3/uL Abs Immat Gran (auto) 0.03 (0.00-0.03) X10*3/uL Absolute Neuts (auto) 9.2 H (2.0-8.3) X10*3/uL Absolute Nucleated RBC 0.000 (0.0-0.012) X10*3/uL Nucleated RBC % (auto) 0.0 (0.0-0.2) /100WBC Hold Purple Top PT (10.8-13.0) SEC INR (0.9-1.1) Sodium (135-145) mmol/L Potassium (3.3-5.1) mmol/l Chloride (96-108) mmol/L Carbon Dioxide (22-29) mmol/L Anion Gap (12-20) BUN (9-16) mg/dL Creatinine (0.5-1.4) mg/dL Estim Creat Clear Calc Estimated GFR Random Glucose (60-115) mg/dL Calcium (8.4-10.2) mg/dL Magnesium (1.6-2.6) mg/dL Total Bilirubin (0.0-1.0) mg/dL Direct Bilirubin (0.0-0.5) mg/dL AST (5-37) U/L ALT (0-40) U/L Alkaline Phosphatase (39-117) U/L Troponin I High Sens (<3.5-35.0) ng/L Total Protein (6.5-8.0) g/dL Albumin (3.5-5.0) g/dL Urine Color YELLOW Urine Appearance CLEAR Urine pH 6.0 (5.0-8.0) Ur Specific [place] 1.010 (1.005-1.025) Urine Protein NEG (NEG-TRACE) MG/DL Urine Glucose (UA) NEG (NEG) MG/DL Urine Ketones NEG (NEG) MG/DL Urine Blood NEG (NEG) Urine Nitrite NEG (NEG) Ur Leukocyte Esterase NEG (NEG) Coronavirus (PCR) NEGATIVE (Negative) Influenza Type A (PCR) NEGATIVE (Negative) Influenza Type B (PCR) NEGATIVE (Negative) RSV RNA Qual (PCR) NEGATIVE (Negative) 08/23/20 08/23/20 08/23/20 Range/Units 14:57 14:57 14:57 WBC (4.8-10.8) X10*3/uL RBC (4.60-5.80) X10*6/uL Hgb (14.0-18.0) g/dl Hct (42-52) % MCV (80-98) fL MCH (27.0-33.0) pg MCHC (31.0-36.0) g/dl RDW (11.0-16.0) % Plt Count (160-400) X10*3/uL MPV (9.4-12.4) fL Immature Gran % (Auto) (0.0-0.4) % Neut % (Auto) (45-73) % Lymph % (Auto) (20-40) % [place] % (Auto) (2-11) % Eos % (Auto) (0-4) % Baso % (Auto) (0-2) % Lymph # (Auto) (1.2-4.9) X10*3/uL [place] # (Auto) (0.1-1.2) X10*3/uL Eos # (Auto) (0.0-0.4) X10*3/uL Baso # (Auto) (0.0-0.2) X10*3/uL Abs Immat Gran (auto) (0.00-0.03) X10*3/uL Absolute Neuts (auto) (2.0-8.3) X10*3/uL Absolute Nucleated RBC (0.0-0.012) X10*3/uL Nucleated RBC % (auto) (0.0-0.2) /100WBC Hold Purple Top SEE NOTE PT 12.4 (10.8-13.0) SEC INR 1.0 (0.9-1.1) Sodium 138 (135-145) mmol/L Potassium 4.2 (3.3-5.1) mmol/l Chloride 102 (96-108) mmol/L Carbon Dioxide 25 (22-29) mmol/L Anion Gap 15 (12-20) BUN 22 H (9-16) mg/dL Creatinine 0.96 (0.5-1.4) mg/dL Estim Creat Clear Calc 50.3 Estimated GFR > 60 Random Glucose 115 (60-115) mg/dL Calcium 8.7 (8.4-10.2) mg/dL Magnesium 2.1 (1.6-2.6) mg/dL Total Bilirubin 0.6 (0.0-1.0) mg/dL Direct Bilirubin 0.3 (0.0-0.5) mg/dL AST 13 D (5-37) U/L ALT < 6 (0-40) U/L Alkaline Phosphatase 117 D (39-117) U/L Troponin I High Sens (<3.5-35.0) ng/L Total Protein 7.0 (6.5-8.0) g/dL Albumin 4.1 (3.5-5.0) g/dL Urine Color Urine Appearance Urine pH (5.0-8.0) Ur Specific [place] (1.005-1.025) Urine Protein (NEG-TRACE) MG/DL Urine Glucose (UA) (NEG) MG/DL Urine Ketones (NEG) MG/DL Urine Blood (NEG) Urine Nitrite (NEG) Ur Leukocyte Esterase (NEG) Coronavirus (PCR) (Negative) Influenza Type A (PCR) (Negative) Influenza Type B (PCR) (Negative) RSV RNA Qual (PCR) (Negative) 08/23/20 Range/Units 18:34 WBC (4.8-10.8) X10*3/uL RBC (4.60-5.80) X10*6/uL Hgb (14.0-18.0) g/dl Hct (42-52) % MCV (80-98) fL MCH (27.0-33.0) pg MCHC (31.0-36.0) g/dl RDW (11.0-16.0) % Plt Count (160-400) X10*3/uL MPV (9.4-12.4) fL Immature Gran % (Auto) (0.0-0.4) % Neut % (Auto) (45-73) % Lymph % (Auto) (20-40) % [place] % (Auto) (2-11) % Eos % (Auto) (0-4) % Baso % (Auto) (0-2) % Lymph # (Auto) (1.2-4.9) X10*3/uL [place] # (Auto) (0.1-1.2) X10*3/uL Eos # (Auto) (0.0-0.4) X10*3/uL Baso # (Auto) (0.0-0.2) X10*3/uL Abs Immat Gran (auto) (0.00-0.03) X10*3/uL Absolute Neuts (auto) (2.0-8.3) X10*3/uL Absolute Nucleated RBC (0.0-0.012) X10*3/uL Nucleated RBC % (auto) (0.0-0.2) /100WBC Hold Purple Top PT (10.8-13.0) SEC INR (0.9-1.1) Sodium (135-145) mmol/L Potassium (3.3-5.1) mmol/l Chloride (96-108) mmol/L Carbon Dioxide (22-29) mmol/L Anion Gap (12-20) BUN (9-16) mg/dL Creatinine (0.5-1.4) mg/dL Estim Creat Clear Calc Estimated GFR Random Glucose (60-115) mg/dL Calcium (8.4-10.2) mg/dL Magnesium (1.6-2.6) mg/dL Total Bilirubin (0.0-1.0) mg/dL Direct Bilirubin (0.0-0.5) mg/dL AST (5-37) U/L ALT (0-40) U/L Alkaline Phosphatase (39-117) U/L Troponin I High Sens < 3.5 (<3.5-35.0) ng/L Total Protein (6.5-8.0) g/dL Albumin (3.5-5.0) g/dL Urine Color Urine Appearance Urine pH (5.0-8.0) Ur Specific [place] (1.005-1.025) Urine Protein (NEG-TRACE) MG/DL Urine Glucose (UA) (NEG) MG/DL Urine Ketones (NEG) MG/DL Urine Blood (NEG) Urine Nitrite (NEG) Ur Leukocyte Esterase (NEG) Coronavirus (PCR) (Negative) Influenza Type A (PCR) (Negative) Influenza Type B (PCR) (Negative) RSV RNA Qual (PCR) (Negative) <My Ross DO - Last Filed: 08/24/20 08:07> Imaging Data Chest x-ray: Attestation: I personally reviewed and interpreted this imaging study as follows: <HUDSON Amador - Last Filed: 08/23/20 18:41> Radiologist's impression: FINDINGS: There are minimally displaced bilateral rib fractures likely acute or subacute. Lungs are clear. Post surgical changes overlie the lower chest midline unchanged. Cardiac silhouette mediastinum pulmonary vascularity normal. XR/XR chest 2V IMPRESSION: Bilateral rib fractures of uncertain acuity but probably subacute <HUDSON Amador - Last Filed: 08/23/20 18:41> CT scan - head: Attestation: I personally reviewed and interpreted this imaging study as follows: <HUDSON Amador Last Filed: 08/23/20 18:41> Radiologist's impression: FINDINGS: There is a low attenuating left-sided subdural hygroma measuring 1 cm transverse diameter axial image 59 series 2 involving the frontal parietal region. This is new since prior CAT scan 07/27/2020. There is no acute hemorrhage. This does not cause significant mass effect. There is no midline shift. No focal parenchymal lesion. Fan to white matter differentiation is well preserved. There is mild age-appropriate atrophy with prominence of the ventricles and the sulci. There are vascular calcifications of the internal carotid arteries bilaterally. The osseous structures and soft tissues are normal. There is no skull fracture. The mastoid air cells and visualized portions of the paranasal sinuses are well aerated. CT/CT head/brain wo con IMPRESSION: Left-sided subdural hygroma new since prior CAT scan 07/27/2020. There is no acute intracranial hemorrhage or significant mass effect. This result was discussed with Nga Markham on 08/23/2020, 3:53 PM and it was ascertained that the content and urgency of the report was understood at the time of direct communication. <HUDSON Amador Last Filed: 08/23/20 18:41> Cervical spine CT: Attestation: I personally reviewed and interpreted this imaging study as follows: <HUDSON Amador Last Filed: 08/23/20 18:41> Radiologist's impression: FINDINGS: Multilevel spondylosis of the cervical spine with severe degenerative disc changes present at the C5-C6 level unchanged. Scattered areas of advanced facet arthrosis bilaterally unchanged. There is no fracture or The surrounding soft tissues are unremarkable. CT/CT cervical spine wo con IMPRESSION: No acute abnormality. Stable multilevel cervical spondylosis <HUDSON Amador Last Filed: 08/23/20 18:41> ECG Data Attestation: I personally reviewed and interpreted this ECG as follows: <HUDSON Amador Last Filed: 08/23/20 18:41> ECG interpretation date: 08/23/20 <HUDSON Amador Last Filed: 08/23/20 18:41> ECG interpretation time: 14:26 <HUDSON Amador - Last Filed: 08/23/20 18:41> Interpretation: The normal sinus rhythm with a ventricular rate of 72 with LVH with a normal QRS, normal QT/QTC interval. No acute ischemic changes. Similar compared to prior 06/25/2020. <HUDSON Amador - Last Filed: 08/23/20 18:41> Discharge Plan Discharge Clinical Impression: Subdural hygroma, Frequent falls, Closed rib fracture, Weakness <HUDSON Amador - Last Filed: 08/23/20 18:41> Prescriptions: No Action thiamine HCl (vitamin B1) 100 mg tablet 100 mg PO DAILY RF: 0 fluticasone propionate 50 mcg/actuation spray,suspension 2 spray intranasal QAM RF: 0 albuterol sulfate 90 mcg/actuation HFA aerosol inhaler 2 puff PO Q4H PRN (Reason: dyspnea) RF: 0 oxcarbazepine 150 mg Tablet 150 mg PO BID RF: 0 sennosides [Senna Lax] 8.6 mg Tablet 8.6 mg PO BID PRN (Reason: Constipation) RF: 0 sucralfate 1 gram Tablet 0.5 g PO TID RF: 0 ondansetron HCl [Zofran] 4 mg Tablet 4 mg PO Q6H PRN (Reason: Nausea) RF: 0 lorazepam 0.5 mg Tablet 0.5 mg PO TID PRN (Reason: Anxiety) RF: 0 mirtazapine 30 mg Tablet 30 mg PO BEDTIME RF: 0 omeprazole 20 mg Capsule,Delayed Release(Dr/Ec) 20 mg PO BID RF: 0 folic acid 1 mg Tablet 1 mg PO DAILY RF: 0 bisacodyl 5 mg tablet,delayed release (DR/EC) 1 tab PO TID PRN (Reason: Nausea) RF: 0 metoprolol succinate 25 mg Tablet Extended Release 24 Hr 25 mg PO DAILY RF: 0 docusate sodium 100 mg Tablet 100 mg PO DAILY PRN (Reason: Constipation) RF: 0 finasteride 5 mg Tablet 5 mg PO BEDTIME RF: 0 carbidopa-levodopa 25-100 mg Tablet,Disintegrating 2 tab PO 5XD RF: 0 ferrous gluconate 324 mg (38 mg iron) Tablet 324 mg PO DAILY RF: 0 cholecalciferol (vitamin D3) [Vitamin D3] 50 mcg (2,000 unit) Capsule 50 mcg PO DAILY RF: 0 cetirizine 10 mg Capsule 10 mg PO DAILY RF: 0 oxycodone 7.5 mg Tablet, Oral Only 7.5 mg PO BID RF: 0 Myrbetriq 50 mg Tablet Extended Release 24 Hr 50 mg PO DAILY RF: 0 Lactobacillus acidophilus Tablet 1,000 mmu cells PO DAILY RF: 0 polyethylene glycol 3350 [Miralax] 17 gram/dose Powder 17 g PO DAILY PRN (Reason: Constipation) RF: 0 duloxetine 20 mg Capsule,Delayed Release(Dr/Ec) 20 mg PO BID RF: 0 <HUDSON Amador - Last Filed: 08/23/20 18:41>
[2020-08-23 15:42] LABS: Alanine Aminotransferase < 6 U/L (0-40); Albumin Level 4.1 g/dL (3.5-5.0); Alkaline Phosphatase 117 U/L (39-117); Anion Gap 15 (12-20); Aspartate Amino Transferase 13 U/L (5-37); Bilirubin Direct 0.3 mg/dL (0.0-0.5); Bilirubin Total 0.6 mg/dL (0.0-1.0); Blood Urea Nitrogen 22 mg/dL (9-16); Calcium 8.7 mg/dL (8.4-10.2); Carbon Dioxide 25 mmol/L (22-29); Chloride 102 mmol/L (96-108); Creatinine Clr Calc Pharmacy 50.3; Estimated Glomerular Filt Rate > 60; Glucose Random 115 mg/dL (60-115); Magnesium 2.1 mg/dL (1.6-2.6); Potassium 4.2 mmol/l (3.3-5.1); Sodium 138 mmol/L (135-145)
[2020-08-23 15:49] LABS: Influenza A PCR NEGATIVE (Negative); Influenza B PCR NEGATIVE (Negative); Resp Syncy Virus RNA Qual PCR NEGATIVE (Negative); SARS COV2 PCR INHOUSE NEGATIVE (Negative)
--- NOTE | 2020-08-23 15:54 | CT_ITS ---
EXAMINATION: CT CERVICAL SPINE WITHOUT CONTRAST CLINICAL INFORMATION: Multiple falls COMPARISON: Prior CT cervical spine August 2019. TECHNIQUE: CT scan of the cervical spine with reconstruction imaging performed at the acquisition workstation This CT examination was performed using dose optimization techniques as appropriate, variously including the following: *Automated exposure control *Adjustment of mA and/or kV according to patient size (this includes techniques or standardized protocols for targeted exams where dose is matched to indication/reason for exam; i.e. extremities or head) *Use of iterative reconstruction technique DLP: 323 mGy-cm FINDINGS: Multilevel spondylosis of the cervical spine with severe degenerative disc changes present at the C5-C6 level unchanged. Scattered areas of advanced facet arthrosis bilaterally unchanged. There is no fracture or The surrounding soft tissues are unremarkable. CT/CT cervical spine wo con IMPRESSION: No acute abnormality. Stable multilevel cervical spondylosis
[2020-08-23 16:00] VITALS: BP 143/79; PULSE 82; RESP 22; TEMP 36.8; O2SAT 96
[2020-08-23] MEDS: oxyCODONE HCl Immed Release 5 MG TABLET PO (16:59)
--- NOTE | 2020-08-23 17:10 | MHC.CM.ED ---
[facility] HUDSON Sylvester. Patient came to the ER due to shortness of breath. Work up essentially negative. Physical therapy eval is pending. Met with patient's , Elle in the waiting room. She can be reached via telephone at [phone]. Patient lives with Elle, uses a cane and [facility] PCP verified. Patient has been exhibiting increased weakness. Elle feels short term rehab may be appropriate. List of facilities provided. [facility] is first choice. Referral made via [facility] or [facility]. Met with patient to explain he will spend the night in the ER. Patient stated Oh I can't stay here. I'm up all night. T/W explained it was safe for patient to be discharged without seeing physical therapy. Patient verbalized understanding. Patient requested dinner and stated he has difficulty chewing and swallowing. He also stated I basically only have liquids. HUDSON Sylvester aware. Continue to monitor for d/c needs.
[2020-08-23 19:11] LABS: Troponin-I High Sensitivity < 3.5 ng/L (<3.5-35.0)
[2020-08-23 20:00] VITALS: BP 118/68; PULSE 79; RESP 16; O2SAT 97
[2020-08-23 22:00] VITALS: BP 122/79; PULSE 88; RESP 20; TEMP 36.8; O2SAT 98
--- NOTE | 2020-08-23 22:46 | PC.NURSE ---
UPDATED DAUGHTER ON PHONE.
[2020-08-24] VITALS (9 sets, daily range): BP systolic 112–148; BP diastolic 60–86; PULSE 77–82; RESP 12–16; TEMP 36.8; O2SAT 95–99
--- NOTE | 2020-08-24 00:36 | PC.NURSE ---
PT ALERT AND AWAKE AND WATCHING TV. PT DENIES ANY COMPLAINTS, SKIN W/D. RESPIRATIONS EASY, N/L. PT AWAITING FOR CASE MGT IN THE MORNING.
--- NOTE | 2020-08-24 02:15 | PC.NURSE ---
PT DENIES ANY COMPLAINTS REMAINS ALERT, RESPIRATIONS N/L. SKIN W/D. PT AWAITING FOR CASE MGT IN MORNING
--- NOTE | 2020-08-24 06:37 | PC.NURSE ---
PT CLEANED UP. PT DENIES ANY COMPLAINTS. BREAKFAST ORDERED. VS OBTAINED. PT REMAINS ALERT, RESPIRATIONS EASY, N/L. SKIN W/D. WILL CONTINUE TO MONITOR PT.
--- NOTE | 2020-08-24 07:12 | PC.NURSE ---
REPORT FROM PATIENCE. PT IS A CASE MANAGEMENT HOLD. LOOKING FOR PLACEMENT FOR FREQUENT FALLS. MED REC COMPLETE. BREAKFAST ORDERED. SLEEPING.
--- NOTE | 2020-08-24 07:41 | PC.NURSE ---
EATING EGGS WITH HELP OF PCT. ORDERED SOFT DIET FOR LUNCH AND DINNER
[2020-08-24] MEDS: Metoprolol Succinate ER 25 MG TAB.ER.24H PO (08:13)
[2020-08-24] MEDS: Omeprazole 20 MG CAPSULE.DR PO (08:13)
[2020-08-24] MEDS: OXcarbazepine 150 MG TABLET PO (08:14)
[2020-08-24] MEDS: Loratadine 10 MG TABLET PO (08:14)
[2020-08-24] MEDS: oxyCODONE HCl Immed Release 5 MG TABLET 7.5 MG PO (08:14)
--- NOTE | 2020-08-24 08:21 | PC.NURSE ---
ATE BREAKFAST, MEDICATED WITH MORNING MEDS
[2020-08-24] MEDS: DULoxetine HCl 20 MG CAPSULE.DR PO (10:06)
[2020-08-24] MEDS: Fluticasone Propionate Nasal 16 GM SPRAY 2 SPRAY NOSTRIL-B (10:06)
--- NOTE | 2020-08-24 11:06 | MHC.CM.PN ---
pt has a PT eval this a.m. , it recommended STR. however the patient is not agreeable to going to STR. he wants to [facility] home [facility]. pt's would like patient to go to STR as she feels he will fall again at home. i tried to compel pt to go to STR, on three separate responses he refused. i then put his on the e.d. community phone with him in an attempt to convince him of STR, instead she agreed to have him return home today c [facility] and home PT 2x / wk. pt's will be picking him up at approx 3 pm today. this dc plan was discussed c rn and pa in the e.d. cm to cont. to follow.
--- NOTE | 2020-08-24 11:39 | PC.NURSE ---
call made out to pharmacy to meds
[2020-08-24] MEDS: Mirabegron 50 MG TAB.ER.24H PO (11:55)
[2020-08-24] MEDS: Carbidopa/Levodopa 25/100 TABLET 2 TAB PO (11:55)
--- NOTE | 2020-08-24 13:15 | PC.NURSE ---
PT RESTING COMFORTABLY. TO BE PICKED UP BY HIS AT 1500HRS. EATING LUNCH. NO COMPLAINTS OR CONCERNS OFFERED.
== END 2020-08-24 14:23 | disposition home or self-care (01) ==
PROVIDERS: Physician Assistant Medical; Emergency Provider Emergency Medicine; PCP Internal Medicine
DX: G96.08 Other cranial cerebrospinal fluid leak (principal); S22.32XA Fracture of one rib, left side, initial encounter for closed fracture; S22.31XA Fracture of one rib, right side, initial encounter for closed fracture; R53.1 Weakness; R06.02 Shortness of breath; M54.2 Cervicalgia; G44.309 Post-traumatic headache, unspecified, not intractable; X58.XXXA Exposure to other specified factors, initial encounter; Y93.9 Activity, unspecified; Y92.9 Unspecified place or not applicable; Y99.9 Unspecified external cause status; Z91.81 History of falling; Z20.828 Contact with and (suspected) exposure to other viral communicable diseases
CPT/HCPCS: 0241U; 36415; 70450; 71046; 72125; 80048; 80076; 81003; 83735; 84484; 85025; 85610; 93005; 96360; 97162; 99284; 99285

== ENCOUNTER 2020-11-25 15:44 | Inpatient (IN) | payer OTHER, SELFPAY ==
[2020-11-25] VITALS (8 sets, daily range): BP systolic 124–177; BP diastolic 68–91; PULSE 80–104; RESP 16–38; TEMP 36.5–36.9; O2SAT 90–100; BMI 26.7
--- NOTE | ~2020-11-25 | XR_ITS ---
EXAMINATION: PORTABLE CHEST 1 VIEW CLINICAL INFORMATION: sob . COMPARISON: 08/23/2020. TECHNIQUE: Portable frontal view of the chest was obtained. FINDINGS: Lungs well-expanded. There is patchy bilateral airspace disease seen bilaterally. Although some of the changes are chronic in nature this has progressed from the prior study suggesting acute on chronic changes. Atypical or viral infectious etiology cannot be excluded and should be clinically correlated. No overt edema or pneumothorax. No significant effusion. Cardiac and mediastinal silhouettes within normal limits for size. No acute bony abnormality. Old healed rib fractures noted. XR/XR chest 1V IMPRESSION: Although there are chronic appearing changes present, there is subtle patchy airspace disease bilaterally which is not readily apparent on the prior study suggesting acute on chronic changes. Superimposed atypical or viral infectious etiology cannot be excluded and should be clinically correlated.
--- NOTE | ~2020-11-25 | CT_ITS ---
EXAMINATION: CT CHEST WITHOUT CONTRAST CLINICAL INFORMATION: Abnormal chest radiograph. Evaluate for pneumonia. COMPARISON: CT chest dated 01/23/2015. Chest radiograph done earlier the same day. TECHNIQUE: Multidetector volumetric CT imaging of the chest was done. Axial MIP volume rendering provided. Sagittal and coronal reformatted images were obtained. This CT examination was performed using dose optimization techniques as appropriate, variously including the following: *Automated exposure control. *Adjustment of mA and/or kV according to patient size (this includes techniques or standardized protocols for targeted exams where dose is matched to indication/reason for exam; i.e. extremities or head). *Use of iterative reconstruction technique. DLP: 223 mGy-cm FINDINGS: POULTRY BREEDER: Chronic interstitial prominence. LUNGS: Diffuse patchy bilateral ground-glass airspace opacities, not seen on the prior chest CT and new when compared to the chest radiograph dated 08/23/2020. No large, confluent airspace consolidation. The central airways are patent. MEDIASTINUM: No cardiomegaly. No pericardial effusion. Prominence of the ascending thoracic aorta measuring up to 4 cm, similar when compared to the prior examination. Unremarkable thyroid. PLEURA: There is no pleural effusion. No pleural mass or thickening. AXILLA: No lymphadenopathy. UPPER ABDOMEN: Surgical clips within the central upper abdomen, unchanged. OSSEOUS STRUCTURES: Subacute/chronic bilateral rib fractures. No concerning lytic or blastic osseous lesion. CT/CT chest wo con IMPRESSION: 1. Diffuse, patchy bilateral ground-glass airspace opacities which appear new when compared to the prior examinations. No large, confluent airspace consolidation. Findings can be seen in the setting of an infectious or inflammatory process, including viral pneumonia. 2. No significant lymphadenopathy. 3. Subacute/chronic bilateral rib fractures.
--- NOTE | 2020-11-25 16:16 | ECG_ITS ---
Test Reason : DYSPNEA Blood Pressure : / mmHG Vent. Rate : 102 BPM Atrial Rate : 102 BPM P-R Int : 190 ms QRS Dur : 088 ms QT Int : 342 ms P-R-T Axes : 074 007 020 degrees QTc Int : 445 ms Poor data quality Sinus tachycardia When compared with ECG of 23-AUG-2020 14:26, No significant change was found Referred By: Janet Richardson Electronically Signed By:Estevan Astudillo
--- NOTE | 2020-11-25 16:36 | ED_ITS ---
HPI - URI/Sore Throat General Chief Complaint: Upper Respiratory Symptoms Stated Complaint: rachael rosario Time Seen by Provider: 11/25/20 16:15 Source: patient and family Mode of arrival: wheelchair Limitations: no limitations History of Present Illness HPI Narrative: 75-year-old male with a past medical history BPH, anemia, hypertension, GERD, Parkinson's disease, dysphagia here with complaints of shortness of breath times 3-4 days worsening over the last 24 hours, chest congestion. No chest pain, fevers, chills. The patient has difficulty swallowing due to his Parkinson's disease and is on a special diet. and patient deny any choking episodes recently. Related Data Home Medications Medication Instructions Recorded Confirmed Lactobacillus acidophilus 1,000 mmu cells PO DAILY 08/23/20 11/25/20 albuterol sulfate 2 puff PO Q4H PRN 08/23/20 11/25/20 bisacodyl 1 tab PO TID PRN 08/23/20 11/25/20 carbidopa-levodopa 2 tab PO 5XD 08/23/20 11/25/20 cetirizine 10 mg PO DAILY 08/23/20 11/25/20 cholecalciferol (vitamin D3) 50 mcg PO DAILY 08/23/20 11/25/20 [Vitamin D3] docusate sodium 100 mg PO DAILY PRN 08/23/20 11/25/20 duloxetine 20 mg PO BID 08/23/20 11/25/20 ferrous gluconate 324 mg PO DAILY 08/23/20 11/25/20 finasteride 5 mg PO BEDTIME 08/23/20 11/25/20 fluticasone propionate 2 spray INTRANASAL QAM 08/23/20 11/25/20 folic acid 1 mg PO DAILY 08/23/20 11/25/20 lorazepam 0.5 mg PO TID PRN 08/23/20 11/25/20 metoprolol succinate 25 mg PO DAILY 08/23/20 11/25/20 mirabegron [Myrbetriq] 50 mg PO DAILY 08/23/20 11/25/20 mirtazapine 30 mg PO BEDTIME 08/23/20 11/25/20 omeprazole 20 mg PO BID 08/23/20 11/25/20 ondansetron HCl [Zofran] 4 mg PO Q6H PRN 08/23/20 11/25/20 oxcarbazepine 150 mg PO BID 08/23/20 11/25/20 oxycodone 7.5 mg PO BID 08/23/20 11/25/20 polyethylene glycol 3350 [Miralax] 17 g PO DAILY PRN 08/23/20 11/25/20 sennosides [Senna Lax] 8.6 mg PO BID PRN 08/23/20 11/25/20 sucralfate 0.5 g PO TID 08/23/20 11/25/20 thiamine HCl (vitamin B1) 100 mg PO DAILY 08/23/20 11/25/20 Allergies Allergy/AdvReac Type Severity Reaction Status Date / Time aspirin [ASA] Allergy Unknown UNKNOWN Verified 08/23/20 16:16 Review of Systems Review of Systems: Yes all other systems are reviewed and are negative Constitutional: Constitutional: Reports no additional constitutional complaints, Denies body ache(s), Denies chills, Denies fever(s), Denies headache(s) and Denies weakness Eyes: Eyes: Reports no additional eye complaints and Denies change in vision ENT: Reports system reviewed and no additional complaints, except as documented, Denies dizziness, Denies headache(s), Denies nasal congestion, Jose es nasal discharge and Denies neck pain Cardiovascular: Cardiovascular: Reports no additional cardiovascular complaints, Denies chest pain, Denies leg edema and Reports dyspnea Respiratory: Respiratory: Reports no additional respiratory complaints, Denies cough and Reports dyspnea Gastrointestinal: Gastrointestinal: Reports no additional gastrointestinal complaints, Denies abdominal pain, Denies diarrhea, Denies nausea and Denies vomiting Genitourinary: Genitourinary: Denies urinary incontinence Musculoskeletal: Musculoskeletal: Reports no additional musculoskeletal complaints, Denies back pain, Denies arthralgias, Denies joint swelling, Denies neck pain, Denies numbness and Denies tingling Integumentary/Breasts: Skin/Breast: Reports system reviewed and no additional complaints, except as docu and Denies rash Neurologic: Reports system reviewed and no additional complaints, except as documented, Denies Abnormal speech present, Denies dizziness, Denies headache(s), Denies numbness, Denies tingling and Denies weakness PMFSH Past Medical History Attestation statement: The following information was validated with the patient. Source: old records reviewed and nursing notes reviewed Medical History COPD (chronic obstructive pulmonary disease) Parkinson disease Social History Social History Alcohol intake: never Smoking Status: Never smoker Use of substances other than those prescribed or required for medical reasons: No Advance Directives: No Advance Directives Information Provided: No Physical Exam Vital Signs: Vital Signs: Last Vital Signs Temp 98.4 F 11/25/20 19:16 Pulse 97 11/25/20 19:16 Resp 16 11/25/20 19:16 BP 129/75 11/25/20 19:16 Pulse Ox 100 11/25/20 19:16 Body Mass Index 26.7 Const: General: in distress Orientation/consciousness: patient oriented x3 Limitations: no limitations HENMT: Head: Yes normal to inspection Ears: hearing grossly normal bilaterally General nose exam: Normal external nose present Face and sinus: Yes normal facial exam Mouth: Normal oral and palatal mucosa present Throat: Yes posterior oropharynx normal Eyes: General: appearance normal, both eyes and all related structures Pupils: Equal, round and reactive pupils present Neck: Neck: Yes normal visual inspection Chest: Chest palpation & inspection: normal inspection of the chest Resp: Other: Patient sitting straight up, speaking 1-2 words, audible coarse breath sounds heard, using accessory muscles Oxygen saturation 84% on room air Cardio: Rate: regular rate Rhythm: regular rhythm Peripheral pulses: Peripheral pulses 2+ throughout GI: Inspection: Yes normal to inspection Palpation (GI): Soft to palpation and nontender Auscultation: normal bowel sounds Back/Spine/Pelvis: Thoracic/Lumbar Spine: thoracic and lumbar spine normal to inspection Skin: General skin exam: no rashes or lesions noted Neuro: General: patient oriented x3, no focal motor deficits and normal sensation to monofilament Cranial nerves: Yes Equal, round and reactive pupi ls present Cognition (Neuro): normal cognition Speech: No Abnormal speech present Gait exam (Neuro): Normal gait present Motor exam (neuro): 5/5 motor strength present throughout Extrem: General: Yes normal to inspection Course Course Course Narrative: 75-year-old male here with shortness of breath and chest congestion times 3-4 days. Patient has history of Parkinson's disease and dysphagia. On arrival the patient is in moderate respiratory distress, sitting straight up, speaking 1-2 words with accessory muscle use and coarse breath sounds on the right side. Room air saturation 84% with tachycardia 110. Will need chest x-ray, blood cultures and lactic acid, COVID screen, EKG. Will need admission. Oxygen saturation improved to 97% on 4 L. Work of breathing improved after 5-10 minutes with oygen. 1700-chest x-ray consistent with a viral or atypical pneumonia bilaterally. COVID screen is negative. Unsure if this is false negative so will check COVID screen with flu and RSV. Check a CT chest to further eval. Labs reviewed which show a leukocytosis. Elevated lactic acid 4.0. This is from a viral infection. Fluids 30 cc/kilos ordered. 1910-Ct Chest shows 1. Diffuse, patchy bilateral ground-glass airspace opacities which appear new when compared to the prior examinations. No large, confluent airspace consolidation. Findings can be seen in the setting of an infectious or inflammatory process, including viral pneumonia. 2. No significant lymphadenopathy. 3. Subacute/chronic bilateral rib fractures. Repeat COVID screen pending. Decadron IV given. Call out to hospitalist to discuss. D/t elevated leukocytosis/lactic acid with negative COVID screen and CT concerning for bilateral ground glass opacities consider superimposed bacterial infection. At this time infection is suspected. Antibiotics ordered. Discussed with Estefanía TREVIÑO who accepted admission. MDM - URI/Sore Throat Medical Records Attestation: I reviewed the patient's medical records. Lab Data Attestation: I reviewed the patient's lab results. Result diagrams: 11/25/20 16:43 11/25/20 16:43 Labs: Lab Results 11/25/20 11/25/20 11/25/20 Range/Units 16:42 16:42 16:42 WBC (4.8-10.8) X10*3/uL RBC (4.60-5.80) X10*6/uL Hgb (14.0-18.0) g/dl Hct (42-52) % MCV (80-98) fL MCH (27.0-33.0) pg MCHC (31.0-36.0) g/dl RDW (11.0-16.0) % Plt Count (160-400) X10*3/uL MPV (9.4-12.4) fL Immature Gran % (Auto) (0.0-0.4) % Neut % (Auto) (45-73) % Lymph % (Auto) (20-40) % [place] % (Auto) (2-11) % Eos % (Auto) (0-4) % Baso % (Auto) (0-2) % Lymph # (Auto) (1.2-4.9) X10*3/uL [place] # (Auto) (0.1-1.2) X10*3/uL Eos # (Auto) (0.0-0.4) X10*3/uL Baso # (Auto) (0.0-0.2) X10*3/uL Abs Immat Gran (auto) (0.00-0.03) X10*3/uL Absolute Neuts (auto) (2.0-8.3) X10*3/uL Absolute Nucleated RBC (0.0-0.012) X10*3/uL Nucleated RBC % (auto) (0.0-0.2) /100WBC Smear Tech's Comments PT (10.8-13.0) SEC INR (0.9-1.1) ABG pH (7.35-7.45) ABG pCO2 (32-45) mmHg ABG pO2 (83-108) mmHg ABG HCO3 (22-26) mmol/L ABG O2 Saturation % ABG Base Excess Oxygen Given Sodium (135-145) mmol/L Potassium (3.3-5.1) mmol/L Chloride (96-108) mmol/L Carbon Dioxide (22-29) mmol/L Anion Gap (12-20) BUN (9-16) mg/dL Creatinine (0.5-1.4) mg/dL Estim Creat Clear Calc Estimated GFR Random Glucose (60-115) mg/dL Lactic Acid 4.0 H* (0.5-2.0) mmol/L Calcium (8.4-10.2) mg/dL Magnesium (1.6-2.6) mg/dL Total Bilirubin (0.0-1.0) mg/dL Direct Bilirubin (0.0-0.5) mg/dL AST (5-37) U/L ALT (0-40) U/L Alkaline Phosphatase (39-117) U/L Lactate Dehydrogenase (118-273) U/L Troponin I High Sens < 3.5 (<3.5-35.0) ng/L C-Reactive Protein (< or = 0.50) mg/dL B-Natriuretic Peptide 188 H (<100) pg/mL Total Protein (6.5-8.0) g/dL Albumin (3.5-5.0) g/dL Procalcitonin ng/mL Urine Color Urine Appearance Urine pH (5.0-8.0) Ur Specific [place] (1.005-1.025) Urine Protein (NEG-TRACE) MG/DL Urine Glucose (UA) (NEG) MG/DL Urine Ketones (NEG) MG/DL Urine Blood (NEG) Urine Nitrite (NEG) Ur Leukocyte Esterase (NEG) Coronavirus (PCR) (Negative) COVID-19 (ALPHONSE) Negative (Negative) COVID-19 Clin Com See Note Influenza Type A (PCR) (Negative) Influenza Type B (PCR) (Negative) RSV RNA Qual (PCR) (Negative) 11/25/20 11/25/20 11/25/20 Range/Units 16:43 16:43 16:43 WBC 19.3 H (4.8-10.8) X10*3/uL RBC 4.57 L (4.60-5.80) X10*6/uL Hgb 13.1 L (14.0-18.0) g/dl Hct 41.6 L (42-52) % MCV 91.0 (80-98) fL MCH 28.7 (27.0-33.0) pg MCHC 31.5 (31.0-36.0) g/dl RDW 13.5 (11.0-16.0) % Plt Count 294 (160-400) X10*3/uL MPV 10.1 (9.4-12.4) fL Immature Gran % (Auto) 0.4 (0.0-0.4) % Neut % (Auto) 93.1 H (45-73) % Lymph % (Auto) 3.0 L (20-40) % [place] % (Auto) 3.3 (2-11) % Eos % (Auto) 0.0 (0-4) % Baso % (Auto) 0.2 (0-2) % Lymph # (Auto) 0.6 L (1.2-4.9) X10*3/uL [place] # (Auto) 0.6 (0.1-1.2) X10*3/uL Eos # (Auto) 0.0 (0.0-0.4) X10*3/uL Baso # (Auto) 0.0 (0.0-0.2) X10*3/uL Abs Immat Gran (auto) 0.08 H (0.00-0.03) X10*3/uL Absolute Neuts (auto) 18.0 H (2.0-8.3) X10*3/uL Absolute Nucleated RBC 0.000 (0.0-0.012) X10*3/uL Nucleated RBC % (auto) 0.0 (0.0-0.2) /100WBC Smear Tech's Comments VERIFIED PT 12.7 (10.8-13.0) SEC INR 1.1 (0.9-1.1) ABG pH (7.35-7.45) ABG pCO2 (32-45) mmHg ABG pO2 (83-108) mmHg ABG HCO3 (22-26) mmol/L ABG O2 Saturation % ABG Base Excess Oxygen Given Sodium 139 (135-145) mmol/L Potassium 4.4 (3.3-5.1) mmol/L Chloride 99 (96-108) mmol/L Carbon Dioxide 30 H (22-29) mmol/L Anion Gap 14 (12-20) BUN 22 H (9-16) mg/dL Creatinine 1.02 (0.5-1.4) mg/dL Estim Creat Clear Calc 56.7 Estimated GFR > 60 Random Glucose 185 H D (60-115) mg/dL Lactic Acid (0.5-2.0) mmol/L Calcium 8.6 (8.4-10.2) mg/dL Magnesium 1.9 (1.6-2.6) mg/dL Total Bilirubin 0.9 (0.0-1.0) mg/dL Direct Bilirubin 0.3 (0.0-0.5) mg/dL AST 16 (5-37) U/L ALT < 6 (0-40) U/L Alkaline Phosphatase 95 (39-117) U/L Lactate Dehydrogenase 165 (118-273) U/L Troponin I High Sens (<3.5-35.0) ng/L C-Reactive Protein 12.15 H (< or = 0.50) mg/dL B-Natriuretic Peptide (<100) pg/mL Total Protein 6.7 (6.5-8.0) g/dL Albumin 3.9 (3.5-5.0) g/dL Procalcitonin ng/mL Urine Color Urine Appearance Urine pH (5.0-8.0) Ur Specific [place] (1.005-1.025) Urine Protein (NEG-TRACE) MG/DL Urine Glucose (UA) (NEG) MG/DL Urine Ketones (NEG) MG/DL Urine Blood (NEG) Urine Nitrite (NEG) Ur Leukocyte Esterase (NEG) Coronavirus (PCR) (Negative) COVID-19 (ALPHONSE) (Negative) COVID-19 Clin Com Influenza Type A (PCR) (Negative) Influenza Type B (PCR) (Negative) RSV RNA Qual (PCR) (Negative) 11/25/20 11/25/20 11/25/20 Range/Units 16:43 18:14 18:30 WBC (4.8-10.8) X10*3/uL RBC (4.60-5.80) X10*6/uL Hgb (14.0-18.0) g/dl Hct (42-52) % MCV (80-98) fL MCH (27.0-33.0) pg MCHC (31.0-36.0) g/dl RDW (11.0-16.0) % Plt Count (160-400) X10*3/uL MPV (9.4-12.4) fL Immature Gran % (Auto) (0.0-0.4) % Neut % (Auto) (45-73) % Lymph % (Auto) (20-40) % [place] % (Auto) (2-11) % Eos % (Auto) (0-4) % Baso % (Auto) (0-2) % Lymph # (Auto) (1.2-4.9) X10*3/uL [place] # (Auto) (0.1-1.2) X10*3/uL Eos # (Auto) (0.0-0.4) X10*3/uL Baso # (Auto) (0.0-0.2) X10*3/uL Abs Immat Gran (auto) (0.00-0.03) X10*3/uL Absolute Neuts (auto) (2.0-8.3) X10*3/uL Absolute Nucleated RBC (0.0-0.012) X10*3/uL Nucleated RBC % (auto) (0.0-0.2) /100WBC Smear Tech's Comments PT (10.8-13.0) SEC INR (0.9-1.1) ABG pH 7.47 H (7.35-7.45) ABG pCO2 38 (32-45) mmHg ABG pO2 59 L (83-108) mmHg ABG HCO3 28 H (22-26) mmol/L ABG O2 Saturation 87.0 % ABG Base Excess 4.6 Oxygen Given 3 L Sodium (135-145) mmol/L Potassium (3.3-5.1) mmol/L Chloride (96-108) mmol/L Carbon Dioxide (22-29) mmol/L Anion Gap (12-20) BUN (9-16) mg/dL Creatinine (0.5-1.4) mg/dL Estim Creat Clear Calc Estimated GFR Random Glucose (60-115) mg/dL Lactic Acid (0.5-2.0) mmol/L Calcium (8.4-10.2) mg/dL Magnesium (1.6-2.6) mg/dL Total Bilirubin (0.0-1.0) mg/dL Direct Bilirubin (0.0-0.5) mg/dL AST (5-37) U/L ALT (0-40) U/L Alkaline Phosphatase (39-117) U/L Lactate Dehydrogenase (118-273) U/L Troponin I High Sens (<3.5-35.0) ng/L C-Reactive Protein (< or = 0.50) mg/dL B-Natriuretic Peptide (<100) pg/mL Total Protein (6.5-8.0) g/dL Albumin (3.5-5.0) g/dL Procalcitonin 4.16 ng/mL Urine Color Urine Appearance Urine pH (5.0-8.0) Ur Specific [place] (1.005-1.025) Urine Protein (NEG-TRACE) MG/DL Urine Glucose (UA) (NEG) MG/DL Urine Ketones (NEG) MG/DL Urine Blood (NEG) Urine Nitrite (NEG) Ur Leukocyte Esterase (NEG) Coronavirus (PCR) NEGATIVE (Negative) COVID-19 (ALPHONSE) (Negative) COVID-19 Clin Com Influenza Type A (PCR) NEGATIVE (Negative) Influenza Type B (PCR) NEGATIVE (Negative) RSV RNA Qual (PCR) NEGATIVE (Negative) 11/25/20 Range/Units 19:12 WBC (4.8-10.8) X10*3/uL RBC (4.60-5.80) X10*6/uL Hgb (14.0-18.0) g/dl Hct (42-52) % MCV (80-98) fL MCH (27.0-33.0) pg MCHC (31.0-36.0) g/dl RDW (11.0-16.0) % Plt Count (160-400) X10*3/uL MPV (9.4-12.4) fL Immature Gran % (Auto) (0.0-0.4) % Neut % (Auto) (45-73) % Lymph % (Auto) (20-40) % [place] % (Auto) (2-11) % Eos % (Auto) (0-4) % Baso % (Auto) (0-2) % Lymph # (Auto) (1.2-4.9) X10*3/uL [place] # (Auto) (0.1-1.2) X10*3/uL Eos # (Auto) (0.0-0.4) X10*3/uL Baso # (Auto) (0.0-0.2) X10*3/uL Abs Immat Gran (auto) (0.00-0.03) X10*3/uL Absolute Neuts (auto) (2.0-8.3) X10*3/uL Absolute Nucleated RBC (0.0-0.012) X10*3/uL Nucleated RBC % (auto) (0.0-0.2) /100WBC Smear Tech's Comments PT (10.8-13.0) SEC INR (0.9-1.1) ABG pH (7.35-7.45) ABG pCO2 (32-45) mmHg ABG pO2 (83-108) mmHg ABG HCO3 (22-26) mmol/L ABG O2 Saturation % ABG Base Excess Oxygen Given Sodium (135-145) mmol/L Potassium (3.3-5.1) mmol/L Chloride (96-108) mmol/L Carbon Dioxide (22-29) mmol/L Anion Gap (12-20) BUN (9-16) mg/dL Creatinine (0.5-1.4) mg/dL Estim Creat Clear Calc Estimated GFR Random Glucose (60-115) mg/dL Lactic Acid (0.5-2.0) mmol/L Calcium (8.4-10.2) mg/dL Magnesium (1.6-2.6) mg/dL Total Bilirubin (0.0-1.0) mg/dL Direct Bilirubin (0.0-0.5) mg/dL AST (5-37) U/L ALT (0-40) U/L Alkaline Phosphatase (39-117) U/L Lactate Dehydrogenase (118-273) U/L Troponin I High Sens (<3.5-35.0) ng/L C-Reactive Protein (< or = 0.50) mg/dL B-Natriuretic Peptide (<100) pg/mL Total Protein (6.5-8.0) g/dL Albumin (3.5-5.0) g/dL Procalcitonin ng/mL Urine Color YELLOW Urine Appearance CLEAR Urine pH 6.0 (5.0-8.0) Ur Specific [place] 1.010 (1.005-1.025) Urine Protein NEG (NEG-TRACE) MG/DL Urine Glucose (UA) NEG (NEG) MG/DL Urine Ketones NEG (NEG) MG/DL Urine Blood NEG (NEG) Urine Nitrite NEG (NEG) Ur Leukocyte Esterase NEG (NEG) Coronavirus (PCR) (Negative) COVID-19 (ALPHONSE) (Negative) COVID-19 Clin Com Influenza Type A (PCR) (Negative) Influenza Type B (PCR) (Negative) RSV RNA Qual (PCR) (Negative) Imaging Data Chest x-ray: Attestation: I personally reviewed and interpreted this imaging study as follows: Radiologist's impression: [address] [id number] ReportSigned Patient: Jayden Gore JMR#: [id number]: 4Acct:[id number]/Sex: 75 / MADM Date: 11/25/20Loc: [facility].EDAttending Dr: Ordering Physician: EUSEBIO SCHAFER NP Date of Service: 11/25/20 Procedure(s): XR chest 1V Accession Number(s): [id number] cc: EUSEBIO SCHAFER NP~ EXAMINATION: PORTABLE CHEST 1 VIEW CLINICAL INFORMATION: sob . COMPARISON: 08/23/2020. TECHNIQUE: Portable frontal view of the chest was obtained. FINDINGS: Lungs well-expanded. There is patchy bilateral airspace disease seen bilaterally. Although some of the changes are chronic in nature this has progressed from the prior study suggesting acute on chronic changes. Atypical or viral infectious etiology cannot be excluded and should be clinically correlated. No overt edema or pneumothorax. No significant effusion. Cardiac and mediastinal silhouettes within normal limits for size. No acute bony abnormality. Old healed rib fractures noted. XR/XR chest 1V IMPRESSION: Although there are chronic appearing changes present, there is subtle patchy airspace disease bilaterally which is not readily apparent on the prior study suggesting acute on chronic changes. Superimposed atypical or viral infectious etiology cannot be excluded and should be clinically correlated. CT scan - chest: Attestation: I personally reviewed and interpreted this imaging study as follows: Radiologist's impression: 1. Diffuse, patchy bilateral ground-glass airspace opacities which appear new when compared to the prior examinations. No large, confluent airspace consolidation. Findings can be seen in the setting of an infectious or inflammatory process, including viral pneumonia. 2. No significant lymphadenopathy. 3. Subacute/chronic bilateral rib fractures. ECG Data Attestation: I personally reviewed and interpreted this ECG as follows: ECG interpretation date: 11/25/20 ECG interpretation time: 16:28 Interpretation: Sinus tachycardia with a rate of 102, normal MN, normal QRS, normal QT Discharge Plan Discharge Clinical Impression: Pneumonia, viral, Leukocytosis, Elevated lactic acid level, Hypoxia Patient Disposition: Admitted As Inpatient
[2020-11-25 16:52] LABS: Basophils Percent Auto 0.2 % (0-2); Hematocrit 41.6 % (42-52); Hemoglobin 13.1 g/dl (14.0-18.0); Imm Gran Abs Auto 0.08 X10*3/uL (0.00-0.03); Imm Gran Pct Auto 0.4 % (0.0-0.4); Lymphocytes Absolute Auto 0.6 X10*3/uL (1.2-4.9); MANUAL DIFF FLAG SCAN; Mean Corpuscular HGB Conc 31.5 g/dl (31.0-36.0); Mean Corpuscular Hemoglobin 28.7 pg (27.0-33.0); Mean Platelet Volume 10.1 fL (9.4-12.4); Monocytes Absolute Auto 0.6 X10*3/uL (0.1-1.2); Monocytes Percent Auto 3.3 % (2-11); Neutrophils Percent Auto 93.1 % (45-73); Platelet Count 294 X10*3/uL (160-400); Red Blood Count 4.57 X10*6/uL (4.60-5.80); Red Cell Distribution Width 13.5 % (11.0-16.0); SCAN SMEAR FLAG 1; White Blood Count 19.3 X10*3/uL (4.8-10.8)
[2020-11-25 16:56] LABS: INTERNATIONAL NORM RATIO 1.1 (0.9-1.1); Prothrombin Time 12.7 SEC (10.8-13.0)
[2020-11-25 17:14] LABS: COVID-19 Test Negative (Negative); IDNOW Serial# 9DD0AD1C
[2020-11-25 17:18] LABS: B Type Natriuretic Peptide 188 pg/mL (<100); Troponin-I High Sensitivity < 3.5 ng/L (<3.5-35.0)
[2020-11-25 17:18] LABS: SLIDE REVIEW VERIFIED
[2020-11-25 17:27] LABS: Alanine Aminotransferase < 6 U/L (0-40); Albumin Level 3.9 g/dL (3.5-5.0); Alkaline Phosphatase 95 U/L (39-117); Anion Gap 14 (12-20); Aspartate Amino Transferase 16 U/L (5-37); Bilirubin Direct 0.3 mg/dL (0.0-0.5); Bilirubin Total 0.9 mg/dL (0.0-1.0); Blood Urea Nitrogen 22 mg/dL (9-16); Calcium 8.6 mg/dL (8.4-10.2); Carbon Dioxide 30 mmol/L (22-29); Chloride 99 mmol/L (96-108); Creatinine Clr Calc Pharmacy 56.7; Estimated Glomerular Filt Rate > 60; Glucose Random 185 mg/dL (60-115); Magnesium 1.9 mg/dL (1.6-2.6); Potassium 4.4 mmol/L (3.3-5.1); Sodium 139 mmol/L (135-145); Total Protein 6.7 g/dL (6.5-8.0)
[2020-11-25] MEDS: SODIUM CHLORIDE 999 ML IV (18:11)
[2020-11-25] MEDS: Albuterol/Iprat 2.5/0.5MG 3 ML AMPUL.NEB INHALE (18:12)
[2020-11-25 18:36] LABS: Pt Ventilation O2% 3 L
[2020-11-25 18:39] LABS: pH ABG 7.47 (7.35-7.45)
[2020-11-25 18:40] LABS: ABG PCO2 38 mmHg (32-45); Base Excess ABG 4.6; HCO3 ABG 28 mmol/L (22-26); PO2 ABG 59 mmHg (83-108)
[2020-11-25 18:48] LABS: Reflex Lactate? Lactic Acid Added
[2020-11-25 19:01] LABS: C Reactive Protein 12.15 mg/dL (< or = 0.50); Lactate Dehydrogenase 165 U/L (118-273)
[2020-11-25] MEDS: dexAMETHasone sod phosphate 4 MG/ML VIAL 6 MG IVPUSH (19:09)
[2020-11-25 19:12] LABS: Procalcitonin 4.16 ng/mL
[2020-11-25 19:30] LABS: Glucose Urine UA NEG (NEG); Leukocyte Esterase Urine NEG (NEG); Nitrite Urine NEG (NEG); Urine Blood NEG (NEG); Urine Ketones NEG (NEG); Urine Protein NEG (NEG-TRACE)
[2020-11-25 19:31] LABS: Appearance Urine CLEAR; Color Urine YELLOW
[2020-11-25 19:31] LABS: Influenza A PCR NEGATIVE (Negative); Influenza B PCR NEGATIVE (Negative); Resp Syncy Virus RNA Qual PCR NEGATIVE (Negative); SARS COV2 PCR INHOUSE NEGATIVE (Negative)
[2020-11-25] MEDS: cefTRIAXone sodium 2 GM in 0.9 % Sodium Chloride 50 ML IV (19:53)
[2020-11-25] MEDS: LORazepam 0.5 MG TABLET 0.25 MG PO (19:53)
--- NOTE | 2020-11-25 20:17 | P.HPHOSP_ITS ---
History of Present Illness Date of Service: 11/25/20 Chief Complaint: Shortness of breath This is a 75-year-old male with a history of Parkinson's disease who presents to the emergency department with shortness of breath. He has had shortness of breath for the past 2-3 days but worsened significantly overnight. He reports an associated dry cough. Denies any fever, chills, abdominal pain, nausea, vomiting. He does have a history of dysphagia and despite eating soft food at home coughs and chokes frequently while eating. His oxygen saturation was 90% on arrival. He was significantly tachypneic as well. He received a breathing treatment as well as steroids with good affect. Lab work revealed leukocytosis of 19.3, lactic acid 4.0. Patient denies any contact with known COVID positive person. His imaging study showed bilateral ground-glass opacities. CRP was 12.15, LDH 165. Both rapid COVID and COVID PCR were negative. Review of Systems Review of Systems: Yes all other systems are reviewed and are negative Constitutional: Constitutional: Denies chills and Denies fever(s) Cardiovascular: Cardiovascular: Denies chest pain and Reports dyspnea Respiratory: Respiratory: Reports cough and Reports dyspnea Gastrointestinal: Gastrointestinal: Denies abdominal pain [facility] Medical History (Updated 11/25/20 @ 20:22 by HUDSON Parkinson) BPH (benign prostatic hyperplasia) Constipation COPD (chronic obstructive pulmonary disease) Dysphagia Hypertension Parkinson disease PUD (peptic ulcer disease) Functional capacity: uses cane/walker Family History Other Bladder cancer Diabetes Family history: reviewed and not pertinent Surgical History (Updated 11/25/20 @ 20:21 by HUDSON Parkinson) S/P gastric surgery Social History (Updated 11/25/20 @ 20:21 by HUDSON Parkinson) Alcohol intake: never Smoking Status: Former smoker Use of substances other than those prescribed or required for medical reasons: No Advance Directives: No Advance Directives Information Provided: No Meds Allergies Allergy/AdvReac Type Severity Reaction Status Date / Time aspirin [ASA] Allergy Unknown UNKNOWN Verified 08/23/20 16:16 Active Medications: Current Medications Generic Name Dose Route Start Last Admin Trade Name Freq PRN Reason Stop Dose Admin Azithromycin 500 mg/ Sodium 250 mls @ 125 mls/hr 11/25/20 19:19 Chloride IV 11/25/20 21:18 ONCE ONE Pharmacy Consult 1 each 11/25/20 16:15 Consult Rx Perform Med Rec MISCELLANE ONCE PRN Consult order Home Medications Medication Instructions Recorded Confirmed Last Taken Type Lactobacillus acidophilus 1,000 mmu cells PO DAILY 08/23/20 11/25/20 11/25/20 08:00 History albuterol sulfate 2 puff PO Q4H PRN 08/23/20 11/25/20 11/25/20 08:00 History bisacodyl 1 tab PO TID PRN 08/23/20 11/25/20 11/25/20 08:00 History carbidopa-levodopa 2 tab PO 5XD 08/23/20 11/25/20 11/25/20 08:00 History cetirizine 10 mg PO DAILY 08/23/20 11/25/20 11/25/20 08:00 History cholecalciferol (vitamin D3) 50 mcg PO DAILY 08/23/20 11/25/20 11/25/20 08:00 History [Vitamin D3] docusate sodium 100 mg PO DAILY PRN 08/23/20 11/25/20 11/25/20 08:00 History duloxetine 20 mg PO BID 08/23/20 11/25/20 11/25/20 08:00 History ferrous gluconate 324 mg PO DAILY 08/23/20 11/25/20 11/25/20 08:00 History finasteride 5 mg PO BEDTIME 08/23/20 11/25/20 11/24/20 21:00 History fluticasone propionate 2 spray INTRANASAL QAM 08/23/20 11/25/20 11/25/20 08:00 History folic acid 1 mg PO DAILY 08/23/20 11/25/20 11/25/20 08:00 History lorazepam 0.5 mg PO TID PRN 08/23/20 11/25/20 11/25/20 08:00 History metoprolol succinate 25 mg PO DAILY 08/23/20 11/25/20 11/25/20 08:00 History mirabegron [Myrbetriq] 50 mg PO DAILY 08/23/20 11/25/20 11/25/20 08:00 History mirtazapine 30 mg PO BEDTIME 08/23/20 11/25/20 11/24/20 21:00 History omeprazole 20 mg PO BID 08/23/20 11/25/20 11/25/20 08:00 History ondansetron HCl [Zofran] 4 mg PO Q6H PRN 08/23/20 11/25/20 11/25/20 08:00 History oxcarbazepine 150 mg PO BID 08/23/20 11/25/20 11/25/20 08:00 History oxycodone 7.5 mg PO BID 08/23/20 11/25/20 11/25/20 08:00 History polyethylene glycol 3350 [Miralax] 17 g PO DAILY PRN 08/23/20 11/25/20 11/25/20 08:00 History sennosides [Senna Lax] 8.6 mg PO BID PRN 08/23/20 11/25/20 11/25/20 08:00 History sucralfate 0.5 g PO TID 08/23/20 11/25/20 11/25/20 08:00 History thiamine HCl (vitamin B1) 100 mg PO DAILY 08/23/20 11/25/20 11/25/20 08:00 History Physical Exam Vital Signs and Narrative: Vital Signs: Last Vital Signs Temp 98.4 F 11/25/20 19:16 Pulse 97 11/25/20 19:16 Resp 16 11/25/20 19:16 BP 129/75 11/25/20 19:16 Pulse Ox 100 11/25/20 19:16 Body Mass Index 26.7 Const: General: alert and awake Nutritional Appearance: thin Orientation/consciousness: patient oriented x3 HENMT: Head: Yes normocephalic and Yes atraumatic Eyes: Sclerae: sclerae normal Chest: Chest palpation & inspection: normal inspection of the chest Resp: Effort & Inspection: normal respiratory effort, no respiratory distress and tachypneic Cardio: Rate: regular rate Rhythm: regular rhythm GI: Palpation (GI): Soft to palpation and nontender Skin: General skin exam: no rashes or lesions noted Neuro: General: patient oriented x3 Cranial nerves: Yes CN's II-XII intact bilaterally and Yes Bilaterally intact EOM present Extrem: General: Yes normal to inspection Results Labs CBC and Chem 7: 11/25/20 16:43 11/25/20 16:43 Labs: Laboratory Results - last 24 hr 11/25/20 11/25/20 11/25/20 16:42 16:42 16:42 MCV MCH MCHC RDW Plt Count MPV Immature Gran % (Auto) Neut % (Auto) Lymph % (Auto) [place] % (Auto) Eos % (Auto) Baso % (Auto) Lymph # (Auto) [place] # (Auto) Eos # (Auto) Baso # (Auto) Abs Immat Gran (auto) Absolute Neuts (auto) Absolute Nucleated RBC Nucleated RBC % (auto) Smear Tech's Comments PT INR ABG pH ABG pCO2 ABG pO2 ABG HCO3 ABG O2 Saturation ABG Base Excess Oxygen Given Anion Gap Estim Creat Clear Calc Estimated GFR Random Glucose Lactic Acid 4.0 H* Calcium Magnesium Total Bilirubin Direct Bilirubin AST ALT Alkaline Phosphatase Lactate Dehydrogenase Troponin I High Sens < 3.5 C-Reactive Protein B-Natriuretic Peptide 188 H Total Protein Albumin Procalcitonin Urine Color Urine Appearance Urine pH Ur Specific [place] Urine Protein Urine Glucose (UA) Urine Ketones Urine Blood Urine Nitrite Ur Leukocyte Esterase Coronavirus (PCR) COVID-19 (ALPHONSE) Negative COVID-19 Clin Com See Note Influenza Type A (PCR) Influenza Type B (PCR) RSV RNA Qual (PCR) 11/25/20 11/25/20 11/25/20 16:43 16:43 16:43 MCV 91.0 MCH 28.7 MCHC 31.5 RDW 13.5 Plt Count 294 MPV 10.1 Immature Gran % (Auto) 0.4 Neut % (Auto) 93.1 H Lymph % (Auto) 3.0 L [place] % (Auto) 3.3 Eos % (Auto) 0.0 Baso % (Auto) 0.2 Lymph # (Auto) 0.6 L [place] # (Auto) 0.6 Eos # (Auto) 0.0 Baso # (Auto) 0.0 Abs Immat Gran (auto) 0.08 H Absolute Neuts (auto) 18.0 H Absolute Nucleated RBC 0.000 Nucleated RBC % (auto) 0.0 Smear Tech's Comments VERIFIED PT 12.7 INR 1.1 ABG pH ABG pCO2 ABG pO2 ABG HCO3 ABG O2 Saturation ABG Base Excess Oxygen Given Anion Gap 14 Estim Creat Clear Calc 56.7 Estimated GFR > 60 Random Glucose 185 H D Lactic Acid Calcium 8.6 Magnesium 1.9 Total Bilirubin 0.9 Direct Bilirubin 0.3 AST 16 ALT < 6 Alkaline Phosphatase 95 Lactate Dehydrogenase 165 Troponin I High Sens C-Reactive Protein 12.15 H B-Natriuretic Peptide Total Protein 6.7 Albumin 3.9 Procalcitonin Urine Color Urine Appearance Urine pH Ur Specific [place] Urine Protein Urine Glucose (UA) Urine Ketones Urine Blood Urine Nitrite Ur Leukocyte Esterase Coronavirus (PCR) COVID-19 (ALPHONSE) COVID-19 Clin Com Influenza Type A (PCR) Influenza Type B (PCR) RSV RNA Qual (PCR) 11/25/20 11/25/20 11/25/20 16:43 18:14 18:30 MCV MCH MCHC RDW Plt Count MPV Immature Gran % (Auto) Neut % (Auto) Lymph % (Auto) [place] % (Auto) Eos % (Auto) Baso % (Auto) Lymph # (Auto) [place] # (Auto) Eos # (Auto) Baso # (Auto) Abs Immat Gran (auto) Absolute Neuts (auto) Absolute Nucleated RBC Nucleated RBC % (auto) Smear Tech's Comments PT INR ABG pH 7.47 H ABG pCO2 38 ABG pO2 59 L ABG HCO3 28 H ABG O2 Saturation 87.0 ABG Base Excess 4.6 Oxygen Given 3 L Anion Gap Estim Creat Clear Calc Estimated GFR Random Glucose Lactic Acid Calcium Magnesium Total Bilirubin Direct Bilirubin AST ALT Alkaline Phosphatase Lactate Dehydrogenase Troponin I High Sens C-Reactive Protein B-Natriuretic Peptide Total Protein Albumin Procalcitonin 4.16 Urine Color Urine Appearance Urine pH Ur Specific [place] Urine Protein Urine Glucose (UA) Urine Ketones Urine Blood Urine Nitrite Ur Leukocyte Esterase Coronavirus (PCR) NEGATIVE COVID-19 (ALPHONSE) COVID-19 Clin Com Influenza Type A (PCR) NEGATIVE Influenza Type B (PCR) NEGATIVE RSV RNA Qual (PCR) NEGATIVE 11/25/20 19:12 MCV MCH MCHC RDW Plt Count MPV Immature Gran % (Auto) Neut % (Auto) Lymph % (Auto) [place] % (Auto) Eos % (Auto) Baso % (Auto) Lymph # (Auto) [place] # (Auto) Eos # (Auto) Baso # (Auto) Abs Immat Gran (auto) Absolute Neuts (auto) Absolute Nucleated RBC Nucleated RBC % (auto) Smear Tech's Comments PT INR ABG pH ABG pCO2 ABG pO2 ABG HCO3 ABG O2 Saturation ABG Base Excess Oxygen Given Anion Gap Estim Creat Clear Calc Estimated GFR Random Glucose Lactic Acid Calcium Magnesium Total Bilirubin Direct Bilirubin AST ALT Alkaline Phosphatase Lactate Dehydrogenase Troponin I High Sens C-Reactive Protein B-Natriuretic Peptide Total Protein Albumin Procalcitonin Urine Color YELLOW Urine Appearance CLEAR Urine pH 6.[address] [place] 1.010 Urine Protein NEG Urine Glucose (UA) NEG Urine Ketones NEG Urine Blood NEG Urine Nitrite NEG Ur Leukocyte Esterase NEG Coronavirus (PCR) COVID-19 (ALPHONSE) COVID-19 Clin Com Influenza Type A (PCR) Influenza Type B (PCR) RSV RNA Qual (PCR) Imaging Radiologist's Impressions: Impressions Chest X-Ray 11/25/20 16:16 IMPRESSION: Although there are chronic appearing changes present, there is subtle patchy airspace disease bilaterally which is not readily apparent on the prior study suggesting acute on chronic changes. Superimposed atypical or viral infectious etiology cannot be excluded and should be clinically correlated. Chest CT 11/25/20 17:17 IMPRESSION: 1. Diffuse, patchy bilateral ground-glass airspace opacities which appear new when compared to the prior examinations. No large, confluent airspace consolidation. Findings can be seen in the setting of an infectious or inflammatory process, including viral pneumonia. 2. No significant lymphadenopathy. 3. Subacute/chronic bilateral rib fractures. Assessment and Plan (1) Acute respiratory failure with hypoxia: Status: Acute (2) Pneumonia: Status: Acute This is a 75-year-old male with history of Parkinson's disease, dysphagia, hypertension, COPD, PUD, BPH who presents with shortness of breath found to have sepsis, pneumonia, hypoxia Acute respiratory failure with hypoxia Related to underlying pneumonia Supplemental oxygen as needed Pneumonia The differential includes gram +/gram -/viral/aspiration related imaging studies similar to covid but testing negative -iv abx -dexamethasone -isolation precautions -ID consult -speech evaluation Sepsis Received fluid bolus in the ED Sepsis focused exam completed Related to underlying pneumonia Follow-up blood culture Parkinson's disease Continue Sinemet Peptic ulcer disease Continue omeprazole, sucralfate Mood continiue duloxetine, lorazepam, mirtazapine, oxcarbazepine chronic pain continue home meds constipation continue bowel regimen Bladder dysfunction myrbetriq, finasteride No longer taking beta-sonya at home DVT prophylaxis-Lovenox Code status-full code This case was discussed with Dr. Nino
[2020-11-25] MEDS: Azithromycin 500 MG in 0.9 % Sodium Chloride 250 ML 125 MG IV (20:41)
[2020-11-25 22:08] LABS: ~Lactic Acid-LAB USE ONLY 2.8 mmol/L (0.5-2.0)
[2020-11-25] MEDS: Mirtazapine 30 MG TABLET PO (23:32)
[2020-11-25] MEDS: OXcarbazepine 150 MG TABLET PO (23:33)
[2020-11-25] MEDS: Finasteride 5 MG TABLET PO (23:34)
[2020-11-25] MEDS: DULoxetine HCl 20 MG CAPSULE.DR PO (23:34)
[2020-11-25] MEDS: oxyCODONE HCl Immed Release 5 MG TABLET 7.5 MG PO (23:35)
[2020-11-25] MEDS: Enoxaparin Sodium 40 MG/0.4 ML SYRINGE SUBCUT (23:36)
[2020-11-25] MEDS: Sucralfate 1 GM TABLET 0.5 GM PO (23:38)
[2020-11-25 23:43] LABS: Reflex Lactate? 2 Y
[2020-11-26 00:20] LABS: ~Lactic Acid-LAB USE ONLY 1.6 mmol/L (0.5-2.0)
[2020-11-26 06:00] VITALS: BP 92/52; PULSE 78; RESP 16; TEMP 36.6; O2SAT 98
[2020-11-26] MEDS: Omeprazole 20 MG CAPSULE.DR PO ×2 (06:14→16:53)
[2020-11-26] MEDS: Carbidopa/Levodopa 25/100 TABLET 2 TAB PO ×5 (06:15→22:35)
[2020-11-26 06:51] LABS: MANUAL DIFF FLAG NO
[2020-11-26 06:56] LABS: Basophils Percent Auto 0.2 % (0-2); Hematocrit 33.2 % (42-52); Hemoglobin 10.4 g/dl (14.0-18.0); Imm Gran Abs Auto 0.04 X10*3/uL (0.00-0.03); Imm Gran Pct Auto 0.4 % (0.0-0.4); Lymphocytes Absolute Auto 0.8 X10*3/uL (1.2-4.9); Lymphocytes Percent Auto 7.7 % (20-40); Mean Corpuscular HGB Conc 31.3 g/dl (31.0-36.0); Mean Corpuscular Hemoglobin 28.3 pg (27.0-33.0); Mean Corpuscular Volume 90.2 fL (80-98); Mean Platelet Volume 10.7 fL (9.4-12.4); Monocytes Absolute Auto 0.4 X10*3/uL (0.1-1.2); Monocytes Percent Auto 4.4 % (2-11); Neutrophils Absolute Auto 8.7 X10*3/uL (2.0-8.3); Neutrophils Percent Auto 87.3 % (45-73); Platelet Count 227 X10*3/uL (160-400); Red Blood Count 3.68 X10*6/uL (4.60-5.80); Red Cell Distribution Width 13.8 % (11.0-16.0)
[2020-11-26 07:22] LABS: Anion Gap 12 (12-20); Blood Urea Nitrogen 20 mg/dL (9-16); Carbon Dioxide 26 mmol/L (22-29); Chloride 106 mmol/L (96-108); Creatinine Clr Calc Pharmacy 77.1; Estimated Glomerular Filt Rate > 60; Glucose Random 129 mg/dL (60-115); Potassium 4.4 mmol/L (3.3-5.1); Sodium 140 mmol/L (135-145)
[2020-11-26 07:43] LABS: Calcium 8.2 mg/dL (8.4-10.2)
[2020-11-26 08:30] VITALS: BP 107/62; PULSE 77; RESP 15; TEMP 36.7; O2SAT 97
[2020-11-26] MEDS: 0.9 % Sodium Chloride Flush 3 ML SYRINGE IVFLUSH ×3 (09:11→22:36)
[2020-11-26] MEDS: Sucralfate 1 GM TABLET 0.5 GM PO ×3 (10:28→20:33)
[2020-11-26] MEDS: oxyCODONE HCl Immed Release 5 MG TABLET 7.5 MG PO ×2 (10:29→20:31)
[2020-11-26] MEDS: Folic Acid 1 MG TABLET PO (10:32)
[2020-11-26] MEDS: DULoxetine HCl 20 MG CAPSULE.DR PO ×2 (10:32→20:32)
[2020-11-26] MEDS: Cholecalciferol (Vitamin D3) 25 MCG TABLET 50 MCG PO (10:33)
[2020-11-26] MEDS: OXcarbazepine 150 MG TABLET PO ×2 (10:34→20:32)
[2020-11-26] MEDS: Fluticasone Propionate Nasal 16 GM SPRAY 2 SPRAY NOSTRIL-B (10:36)
[2020-11-26] MEDS: Thiamine HCL 100 MG TABLET PO (10:50)
[2020-11-26] MEDS: Piperacillin Sodium/Tazobactam 3.375 GM in 0.9 % Sodium Chloride 50 ML IV ×3 (10:50→20:31)
[2020-11-26] MEDS: Mirabegron 50 MG TAB.ER.24H PO (10:50)
--- NOTE | 2020-11-26 11:48 | HO.PM.IMPN ---
Subjective Subjective Date of Service: 11/26/20 Interval History: the patient was seen and evaluated this morning Laying in bed, feels comfortable Denies any fever, chills but has shortness of breath 2/2 pneumonia No reported other overnight events. Systemic review: No fever, chills or weakness No chest pain, palpitation exertional shortness of breath or coughing No abdominal pain, nausea or vomiting No urinary symptoms No any rash or wounds Physical Exam Vital Signs: Vital Signs: Last Vital Signs Temp 98.0 F 11/26/20 08:30 Pulse 77 11/26/20 08:30 Resp 15 11/26/20 08:30 BP 107/62 11/26/20 08:30 Pulse Ox 97 11/26/20 08:30 Body Mass Index 26.7 Const: Other: Constitutional : Alert, oriented, not in distress Neck : Normal inspection, Supple Cardiovascular : RRR, S1 S2, no lower extremity edema Respiratory : decrease bilateral air entry, bilateral basal crackles, no wheezes or rhonchi Gastrointestinal: soft, lax, Normal bowel sounds, Non tender Skin : Warm/Dry, No rash Neurological : Alert & oriented x3, No focal deficit, noted to have body tremors at baseline. Objective Data Current Medications Generic Name Dose Route Start Last Admin Trade Name Freq PRN Reason Stop Dose Admin Acetaminophen 650 mg 11/25/20 22:38 Acetaminophen 325 Mg Tablet PO Q6H PRN Pain, Mild (Pain Scale 1-3) Albuterol Sulfate 2 puff 11/25/20 22:38 Albuterol Sulfate 90 Mcg 8 Gm Inhaler INHALE Q4H PRN dyspnea Bisacodyl 5 mg 11/25/20 22:38 Bisacodyl 5 Mg Tablet. PO TID PRN Constipation Carbidopa/Levodopa 2 tab 11/26/20 06:00 11/26/20 06:15 Carbidopa/Levodopa 25/100 Tablet PO 2 tab 5XD ELIAS Administration Dexamethasone Sodium Phosphate 6 mg 11/26/20 09:00 11/26/20 10:33 Dexamethasone Sod Phosphate/Pf 10 Mg/Ml Vial IVPUSH 6 mg DAILY ELIAS Administration Docusate Sodium 100 mg 11/25/20 22:38 Docusate Sodium 100 Mg Capsule PO DAILY PRN Constipation Duloxetine HCl 20 mg 11/25/20 22:38 11/26/20 10:32 Duloxetine Hcl 20 Mg Capsule. PO 20 mg BID ELIAS Administration Enoxaparin Sodium 40 mg 11/25/20 23:00 11/25/20 23:36 Enoxaparin Sodium 40 Mg/0.4 Ml Syringe SUBCUT 40 mg Q24H ELIAS Administration Finasteride 5 mg 11/25/20 22:38 11/25/20 23:34 Finasteride 5 Mg Tablet PO 5 mg BEDTIME ELIAS Administration Fluticasone Propionate 2 spray 11/26/20 09:00 11/26/20 10:36 Fluticasone Propionate Nasal 16 Gm [place] NOSTRIL-B 2 spray DAILY ELIAS Administration Folic Acid 1 mg 11/26/20 09:00 11/26/20 10:32 Folic Acid 1 Mg Tablet PO 1 mg DAILY ELIAS Administration Piperacillin Sod/Tazobactam 50 mls @ 100 mls/hr 11/26/20 09:00 11/26/20 10:50 Sod 3.375 gm/ Sodium Chloride IV 100 mls/hr Q6H ELIAS Administration Lorazepam 0.5 mg 11/25/20 22:38 Lorazepam 0.5 Mg Tablet PO TID PRN Anxiety Mirabegron 50 mg 11/26/20 09:00 11/26/20 10:50 Mirabegron 50 Mg Tab.Er.24h PO 50 mg DAILY ELIAS Administration Mirtazapine 30 mg 11/25/20 22:38 11/25/20 23:32 Mirtazapine 30 Mg Tablet PO 30 mg BEDTIME ELIAS Administration Omeprazole 20 mg 11/26/20 06:30 11/26/20 06:14 Omeprazole 20 Mg Capsule. PO 20 mg BID@0630,1630 ELIAS Administration Ondansetron HCl 4 mg 11/25/20 22:38 Ondansetron Hcl 4 Mg/2 Ml Vial IVPUSH Q8H PRN Nausea and Vomiting Oxcarbazepine 150 mg 11/25/20 22:38 11/26/20 10:34 Oxcarbazepine 150 Mg Tablet PO 150 mg BID ELIAS Administration Oxycodone HCl 7.5 mg 11/25/20 22:38 11/26/20 10:29 Oxycodone Hcl Immed Release 5 Mg Tablet PO 7.5 mg BID ELIAS Administration Pharmacy Consult 1 each 11/25/20 16:15 Consult Rx Perform Med Rec MISCELLANE ONCE PRN Consult order Polyethylene Glycol 17 gm 11/25/20 22:38 Polyethylene Glycol 3350 17 Gm Powd.Pack PO DAILY PRN Constipation Senna 8.6 mg 11/25/20 22:38 Sennosides 8.6 Mg Tablet PO BID PRN Constipation Sodium Chloride 3 ml 11/26/20 00:00 11/26/20 09:11 0.9 % Sodium Chloride Flush 3 Ml Syringe IVFLUSH 3 ml QSHIFT ELIAS Administration Sucralfate 0.5 gm 11/25/20 22:38 11/26/20 10:28 Sucralfate 1 Gm Tablet PO 0.5 gm TID ELIAS Administration Thiamine HCl 100 mg 11/26/20 09:00 11/26/20 10:50 Thiamine Hcl 100 Mg Tablet PO 100 mg DAILY ELIAS Administration Vitamin D 50 mcg 11/26/20 09:00 11/26/20 10:33 Cholecalciferol (Vitamin D3) 25 Mcg Tablet PO 50 mcg DAILY ELIAS Administration Labs CBC & Chem 7: 11/26/20 06:07 11/26/20 06:07 Assessment and Plan (1) Acute respiratory failure with hypoxia: Status: Acute (2) Pneumonia: Status: Acute Assessment and Plan: This is a 75-year-old male with history of Parkinson's disease, dysphagia, hypertension, COPD, PUD, BPH who presents with shortness of breath found to have sepsis, pneumonia, hypoxia Acute respiratory failure with hypoxia Pneumonia likely 2/2 aspiration w hx of dysphagia covid negative Start Zosyn, DC Az and CTx discontinue dexamethasone for now isolation precautions pending ID consult speech evaluation Sepsis Received fluid bolus in the ED Sepsis focused exam completed Related to underlying pneumonia Follow-up blood culture Parkinson's disease Continue Sinemet Peptic ulcer disease Continue omeprazole, sucralfate Mood continiue duloxetine, lorazepam, mirtazapine, oxcarbazepine chronic pain continue home meds constipation continue bowel regimen Bladder dysfunction myrbetriq, finasteride No longer taking beta-sonya at home DVT prophylaxis-Lovenox Code status-full code
[2020-11-26 12:49] VITALS: BP 143/84; PULSE 102; RESP 18; TEMP 36.9; O2SAT 95
--- NOTE | 2020-11-26 12:50 | PC.NURSE ---
First contact with patient. Has been evaled by speech. on puree and nectar thick liquids. pt is alert, oriented to person and place. saturated brief removed and patient cleansed. sml blanchable are on buttocks. no breakdown. crackes in lung bases bilateralyl and moderate air movement. pt c/o SOB x months. able to swallow crushed meds with apple sauce easily at 90degrees. awaits update in wr.
--- NOTE | 2020-11-26 13:18 | PC.NURSE ---
update to on phone. she will get covid test and bring phone for patient. no more visiting.
[2020-11-26 16:27] VITALS: BP 145/77; PULSE 80; RESP 18; TEMP 36.9; O2SAT 98
[2020-11-26 16:27] LABS: COVID-19 Test Negative (Negative); IDNOW Serial# 9DD0AD1C
--- NOTE | 2020-11-26 16:29 | PC.NURSE ---
pt incontinnent of urine x 2. cleansed and repositioned alternating sides. st on monitor. skin pwd. awaits room upstairs.
--- NOTE | 2020-11-26 16:47 | PC.NURSE ---
condum cath applied
--- NOTE | 2020-11-26 17:58 | PC.NURSE ---
floor called for report. given to jason CAIN.
--- NOTE | 2020-11-26 18:26 | PC.NURSE ---
miriam aware of consult
[2020-11-26 19:29] VITALS: BP 148/78; PULSE 83; RESP 18; O2SAT 98
[2020-11-26] MEDS: Mirtazapine 30 MG TABLET PO (20:32)
[2020-11-26] MEDS: Finasteride 5 MG TABLET PO (20:32)
[2020-11-26 21:56] VITALS: BMI 20.5
[2020-11-26] MEDS: Enoxaparin Sodium 40 MG/0.4 ML SYRINGE SUBCUT (22:36)
[2020-11-26 23:36] VITALS: BP 136/82; PULSE 80; RESP 18; TEMP 36.6; O2SAT 94
[2020-11-27] MEDS: Piperacillin Sodium/Tazobactam 3.375 GM in 0.9 % Sodium Chloride 50 ML IV ×2 (02:51→09:18)
[2020-11-27 03:34] VITALS: BP 140/75; PULSE 75; RESP 18; TEMP 36.4; O2SAT 94
[2020-11-27] MEDS: Omeprazole 20 MG CAPSULE.DR PO (05:41)
[2020-11-27] MEDS: Carbidopa/Levodopa 25/100 TABLET 2 TAB PO ×3 (05:41→13:59)
[2020-11-27 06:05] LABS: Hematocrit 34.3 % (42-52); Hemoglobin 11.2 g/dl (14.0-18.0); Mean Corpuscular HGB Conc 32.7 g/dl (31.0-36.0); Mean Corpuscular Hemoglobin 29.2 pg (27.0-33.0); Mean Corpuscular Volume 89.3 fL (80-98); Mean Platelet Volume 10.6 fL (9.4-12.4); Platelet Count 252 X10*3/uL (160-400); Red Blood Count 3.84 X10*6/uL (4.60-5.80); Red Cell Distribution Width 13.6 % (11.0-16.0); White Blood Count 8.7 X10*3/uL (4.8-10.8)
[2020-11-27 06:36] LABS: Anion Gap 9 (12-20); Blood Urea Nitrogen 17 mg/dL (9-16); Calcium 8.4 mg/dL (8.4-10.2); Carbon Dioxide 29 mmol/L (22-29); Chloride 105 mmol/L (96-108); Creatinine Clr Calc Pharmacy 66.5; Estimated Glomerular Filt Rate > 60; Glucose Random 120 mg/dL (60-115); Sodium 139 mmol/L (135-145)
[2020-11-27 07:21] VITALS: BP 122/75; PULSE 66; RESP 18; TEMP 37; O2SAT 95
[2020-11-27] MEDS: oxyCODONE HCl Immed Release 5 MG TABLET 7.5 MG PO (09:19)
[2020-11-27] MEDS: DULoxetine HCl 20 MG CAPSULE.DR PO (09:20)
[2020-11-27] MEDS: Sucralfate 1 GM TABLET 0.5 GM PO ×2 (09:20→13:58)
[2020-11-27] MEDS: Thiamine HCL 100 MG TABLET PO (09:20)
[2020-11-27] MEDS: OXcarbazepine 150 MG TABLET PO (09:20)
[2020-11-27] MEDS: Folic Acid 1 MG TABLET PO (09:20)
[2020-11-27] MEDS: Mirabegron 50 MG TAB.ER.24H PO (09:20)
[2020-11-27] MEDS: Cholecalciferol (Vitamin D3) 25 MCG TABLET 50 MCG PO (09:20)
[2020-11-27] MEDS: 0.9 % Sodium Chloride Flush 3 ML SYRINGE IVFLUSH (09:21)
[2020-11-27] MEDS: Fluticasone Propionate Nasal 16 GM SPRAY 2 SPRAY NOSTRIL-B (10:05)
--- NOTE | 2020-11-27 11:05 | W.PM.IDCN ---
History of Present Illness Data of Consult Service Date: 11/27/20 Requesting physician: Suri Mercedes Primary Care Provider: Kimberly Jha MD HPI Reason for consult: shortness of breath He presents to hospital with shortness of breath for 3-4 weeks He has cough as well He has no purulent sputum Now he is feeling back to normal and isnt on oxygen Review of Systems Review of Systems: Yes all other systems are reviewed and are negative PMFSH Past Medical History Medical History BPH (benign prostatic hyperplasia) Constipation COPD (chronic obstructive pulmonary disease) Dysphagia Hypertension Parkinson disease PUD (peptic ulcer disease) Functional capacity: uses cane/walker Family History Family History Other Bladder cancer Diabetes Family history: reviewed and not pertinent Surgical History Surgical History S/P gastric surgery Social History Social History Household Members: Family Housing: House Alcohol intake: never Smoking Status: Former smoker Use of substances other than those prescribed or required for medical reasons: No Currently Displaying Signs/Symptoms of Drug Intoxication Withdrawal: No Have you been hit, kicked, punched, or otherwise hurt by someone within the past year? If so, by whom?: No Do you feel safe in your current relationship?: Yes Is there a partner from a previous relationship who is making you feel unsafe now?: No Are you made to feel afraid or neglected: No Advance Directives: No Advance Directives Information Provided: No Do you have thoughts of harming others: None Do you have a plan to hurt others: No Plan Recently lost weight without trying: Unsure Meds Allergies Allergy/AdvReac Type Severity Reaction Status Date / Time aspirin [ASA] Allergy Unknown UNKNOWN Verified 08/23/20 16:16 Active Medications: Current Medications Generic Name Dose Route Start Last Admin Trade Name Freq PRN Reason Stop Dose Admin Acetaminophen 650 mg 11/25/20 22:38 Acetaminophen 325 Mg Tablet PO Q6H PRN Pain, Mild (Pain Scale 1-3) Albuterol Sulfate 2 puff 11/25/20 22:38 Albuterol Sulfate 90 Mcg 8 Gm Inhaler INHALE Q4H PRN dyspnea Bisacodyl 5 mg 11/25/20 22:38 Bisacodyl 5 Mg Tablet. PO TID PRN Constipation Carbidopa/Levodopa 2 tab 11/26/20 06:00 11/27/20 10:05 Carbidopa/Levodopa 25/100 Tablet PO 2 tab 5XD ELIAS Administration Docusate Sodium 100 mg 11/25/20 22:38 Docusate Sodium 100 Mg Capsule PO DAILY PRN Constipation Duloxetine HCl 20 mg 11/25/20 22:38 11/27/20 09:20 Duloxetine Hcl 20 Mg Capsule. PO 20 mg BID ELIAS Administration Enoxaparin Sodium 40 mg 11/25/20 23:00 11/26/20 22:36 Enoxaparin Sodium 40 Mg/0.4 Ml Syringe SUBCUT 40 mg Q24H ELIAS Administration Finasteride 5 mg 11/25/20 22:38 11/26/20 20:32 Finasteride 5 Mg Tablet PO 5 mg BEDTIME ELIAS Administration Fluticasone Propionate 2 spray 11/26/20 09:00 11/27/20 10:05 Fluticasone Propionate Nasal 16 Gm [place] NOSTRIL-B 2 spray DAILY ELIAS Administration Folic Acid 1 mg 11/26/20 09:00 11/27/20 09:20 Folic Acid 1 Mg Tablet PO 1 mg DAILY ELIAS Administration Piperacillin Sod/Tazobactam 50 mls @ 100 mls/hr 11/26/20 09:00 11/27/20 10:05 Sod 3.375 gm/ Sodium Chloride IV Infused Q6H ELIAS Infusion Lorazepam 0.5 mg 11/25/20 22:38 Lorazepam 0.5 Mg Tablet PO TID PRN Anxiety Mirabegron 50 mg 11/26/20 09:00 11/27/20 09:20 Mirabegron 50 Mg Tab.Er.24h PO 50 mg DAILY ELIAS Administration Mirtazapine 30 mg 11/25/20 22:38 11/26/20 20:32 Mirtazapine 30 Mg Tablet PO 30 mg BEDTIME ELIAS Administration Omeprazole 20 mg 11/26/20 06:30 11/27/20 05:41 Omeprazole 20 Mg Capsule. PO 20 mg BID@0630,1630 ELIAS Administration Ondansetron HCl 4 mg 11/25/20 22:38 Ondansetron Hcl 4 Mg/2 Ml Vial IVPUSH Q8H PRN Nausea and Vomiting Oxcarbazepine 150 mg 11/25/20 22:38 11/27/20 09:20 Oxcarbazepine 150 Mg Tablet PO 150 mg BID ELIAS Administration Oxycodone HCl 7.5 mg 11/25/20 22:38 11/27/20 09:19 Oxycodone Hcl Immed Release 5 Mg Tablet PO 7.5 mg BID ELIAS Administration Pharmacy Consult 1 each 11/25/20 16:15 Consult Rx Perform Med Rec MISCELLANE ONCE PRN Consult order Polyethylene Glycol 17 gm 11/25/20 22:38 Polyethylene Glycol 3350 17 Gm Powd.Pack PO DAILY PRN Constipation Senna 8.6 mg 11/25/20 22:38 Sennosides 8.6 Mg Tablet PO BID PRN Constipation Sodium Chloride 3 ml 11/26/20 00:00 11/27/20 09:21 0.9 % Sodium Chloride Flush 3 Ml Syringe IVFLUSH 3 ml QSHIFT [facility] Administration Sucralfate 0.5 gm 11/25/20 22:38 11/27/20 09:20 Sucralfate 1 Gm Tablet PO 0.5 gm TID [facility] Administration Thiamine HCl 100 mg 11/26/20 09:00 11/27/20 09:20 Thiamine Hcl 100 Mg Tablet PO 100 mg DAILY [facility] Administration Vitamin D 50 mcg 11/26/20 09:00 11/27/20 09:20 Cholecalciferol (Vitamin D3) 25 Mcg Tablet PO 50 mcg DAILY ELIAS Administration Home Medications Medication Instructions Recorded Confirmed Last Taken Type Lactobacillus acidophilus 1,000 mmu cells PO DAILY 08/23/20 11/25/20 11/25/20 08:00 History albuterol sulfate 2 puff PO Q4H PRN 08/23/20 11/25/20 11/25/20 08:00 History bisacodyl 1 tab PO TID PRN 08/23/20 11/25/20 11/25/20 08:00 History carbidopa-levodopa 2 tab PO 5XD 08/23/20 11/25/20 11/25/20 08:00 History cetirizine 10 mg PO DAILY 08/23/20 11/25/20 11/25/20 08:00 History cholecalciferol (vitamin D3) 50 mcg PO DAILY 08/23/20 11/25/20 11/25/20 08:00 History [Vitamin D3] docusate sodium 100 mg PO DAILY PRN 08/23/20 11/25/20 11/25/20 08:00 History duloxetine 20 mg PO BID 08/23/20 11/25/20 11/25/20 08:00 History ferrous gluconate 324 mg PO DAILY 08/23/20 11/25/20 11/25/20 08:00 History finasteride 5 mg PO BEDTIME 08/23/20 11/25/20 11/24/20 21:00 History fluticasone propionate 2 spray INTRANASAL QAM 08/23/20 11/25/20 11/25/20 08:00 History folic acid 1 mg PO DAILY 08/23/20 11/25/20 11/25/20 08:00 History lorazepam 0.5 mg PO TID PRN 08/23/20 11/25/20 11/25/20 08:00 History metoprolol succinate 25 mg PO DAILY 08/23/20 11/25/20 11/25/20 08:00 History mirabegron [Myrbetriq] 50 mg PO DAILY 08/23/20 11/25/20 11/25/20 08:00 History mirtazapine 30 mg PO BEDTIME 08/23/20 11/25/20 11/24/20 21:00 History omeprazole 20 mg PO BID 08/23/20 11/25/20 11/25/20 08:00 History ondansetron HCl [Zofran] 4 mg PO Q6H PRN 08/23/20 11/25/20 11/25/20 08:00 History oxcarbazepine 150 mg PO BID 08/23/20 11/25/20 11/25/20 08:00 History oxycodone 7.5 mg PO BID 08/23/20 11/25/20 11/25/20 08:00 History polyethylene glycol 3350 [Miralax] 17 g PO DAILY PRN 08/23/20 11/25/20 11/25/20 08:00 History sennosides [Senna Lax] 8.6 mg PO BID PRN 08/23/20 11/25/20 11/25/20 08:00 History sucralfate 0.5 g PO TID 08/23/20 11/25/20 11/25/20 08:00 History thiamine HCl (vitamin B1) 100 mg PO DAILY 08/23/20 11/25/20 11/25/20 08:00 History Physical Exam Vital Signs: Vital Signs: Last Vital Signs Temp 98.6 F 11/27/20 07:21 Pulse 66 11/27/20 07:21 Resp 18 11/27/20 07:21 BP 122/75 11/27/20 07:21 Pulse Ox 95 11/27/20 07:21 Body Mass Index 20.5 Const: General: cooperative HENMT: Head: Yes normal to inspection Mouth: oropharynx normal Eyes: General: appearance normal, both eyes and all related structures Resp: Effort & Inspection: normal respiratory effort Cardio: Rate: regular rate Rhythm: regular rhythm GI: Palpation (GI): Soft to palpation and nontender Skin: General skin exam: no rashes or lesions noted Extrem: General: Yes full ROM Results Labs CBC & Chem 7: 11/27/20 05:19 11/27/20 05:19 Labs: Short CBC 11/27/20 Range/Units 05:19 WBC 8.7 (4.8-10.8) X10*3/uL Hgb 11.2 L (14.0-18.0) g/dl Hct 34.3 L (42-52) % Plt Count 252 (160-400) X10*3/uL BMP 11/27/20 05:19 Sodium 139 Potassium 4.0 Chloride 105 Carbon Dioxide 29 BUN 17 H Creatinine 0.78 Calcium 8.4 Microbiology Microbiology Results: Microbiology 11/25/20 17:08 Blood - Venous Blood Culture - Preliminary No growth after 24 hours. 11/25/20 16:41 Blood - Venous Blood Culture - Preliminary No growth after 24 hours. Assessment and Plan (1) Pneumonia: Problem details: Pneumonia,with aspiration may be Parkinsons There is no COVID and no specific organism He is doing well now and isnt on oxygen Status: Acute 10 days Augmentin and Doxycycline Minimize aspiration risk (2) Acute respiratory failure with hypoxia: Status: Acute (3) Leukocytosis: Status: Acute (4) GERD (gastroesophageal reflux disease): Status: Acute (5) Parkinson disease: Status: Acute
--- NOTE | 2020-11-27 11:47 | MHC.SLORD ---
SHERIFF OFFICER checked in with pt's RN. Pt is tolerating current modified diet of PUREED (NDD1) solids and HONEY THICK LIQUIDS with PILLS CRUSHED IN PUREE. This is pt's baseline diet and he is compliant with it at home. SHERIFF OFFICER continues to recommend this consistency. Per RN, pt to be discharged later this afternoon. Name: Jayden Gore Date of : 1945 Age: 75 Date of Registration: 11/25/20 Speech Language Pathology Order Status:
--- NOTE | 2020-11-27 12:09 | MHC.CM.PN ---
pt dcd home no skilled servceis orderd by
--- NOTE | 2020-11-27 12:13 | P.DS_ITS ---
DS: Providers Provider Date of Service: 11/27/20 Date of admission: 11/25/20 20:07 Primary care physician: Kimberly Jha MD Consults: 11/25/20 20:07 Consult to Infectious Diseases Routine Consulting Provider: Hattie Polanco Reason for consultation: pna ?covid vs other Has provider been notified: No DS: Diagnosis Discharge Diagnosis (1) Pneumonia: Status: Acute (2) Acute respiratory failure with hypoxia: Status: Acute (3) Leukocytosis: Status: Acute (4) GERD (gastroesophageal reflux disease): Status: Acute (5) Parkinson disease: Status: Acute DS: Medications Discharge Medications Home Medications: Home Medications Medication Instructions Recorded Confirmed Lactobacillus acidophilus 1,000 mmu cells PO DAILY 08/23/20 11/25/20 Myrbetriq 50 mg PO DAILY 08/23/20 11/25/20 albuterol sulfate 2 puff PO Q4H PRN 08/23/20 11/25/20 bisacodyl 1 tab PO TID PRN 08/23/20 11/25/20 carbidopa-levodopa 2 tab PO 5XD 08/23/20 11/25/20 cetirizine 10 mg PO DAILY 08/23/20 11/25/20 cholecalciferol (vitamin D3) 50 mcg PO DAILY 08/23/20 11/25/20 [Vitamin D3] docusate sodium 100 mg PO DAILY PRN 08/23/20 11/25/20 duloxetine 20 mg PO BID 08/23/20 11/25/20 ferrous gluconate 324 mg PO DAILY 08/23/20 11/25/20 finasteride 5 mg PO BEDTIME 08/23/20 11/25/20 fluticasone propionate 2 spray INTRANASAL QAM 08/23/20 11/25/20 folic acid 1 mg PO DAILY 08/23/20 11/25/20 lorazepam 0.5 mg PO TID PRN 08/23/20 11/25/20 metoprolol succinate 25 mg PO DAILY 08/23/20 11/25/20 mirtazapine 30 mg PO BEDTIME 08/23/20 11/25/20 omeprazole 20 mg PO BID 08/23/20 11/25/20 ondansetron HCl [Zofran] 4 mg PO Q6H PRN 08/23/20 11/25/20 oxcarbazepine 150 mg PO BID 08/23/20 11/25/20 oxycodone 7.5 mg PO BID 08/23/20 11/25/20 polyethylene glycol 3350 [Miralax] 17 g PO DAILY PRN 08/23/20 11/25/20 sennosides [Senna Lax] 8.6 mg PO BID PRN 08/23/20 11/25/20 sucralfate 0.5 g PO TID 08/23/20 11/25/20 thiamine HCl (vitamin B1) 100 mg PO DAILY 08/23/20 11/25/20 Previous Rx's Medication Instructions Recorded amoxicillin-pot clavulanate 1 tab PO BID #20 tab 11/27/20 [Augmentin] doxycycline monohydrate 150 mg PO BID #20 cap 11/27/20 DS: Summary Hospital Course Hospital Course: Admission note HPI This is a 75-year-old male with a history of Parkinson's disease who presents to the emergency department with shortness of breath. He has had shortness of breath for the past 2-3 days but worsened significantly overnight. He reports an associated dry cough. Denies any fever, chills, abdominal pain, nausea, vomiting. He does have a history of dysphagia and despite eating soft food at home coughs and chokes frequently while eating. His oxygen saturation was 90% on arrival. He was significantly tachypneic as well. He received a breathing treatment as well as steroids with good affect. Lab work revealed leukocytosis of 19.3, lactic acid 4.0. Patient denies any contact with known COVID positive person. His imaging study showed bilateral ground-glass opacities. CRP was 12.15, LDH 165. Both rapid COVID and COVID PCR were negative. Hospital course The patient was admitted to the hospital for evaluation of sepsis and acute hypoxic respiratory failure secondary to pneumonia. CT scan in the emergency was concerning for viral like infection but COVID test repeated twice came back negative. He was treated with IV antibiotics of Zosyn for increased risk of aspiration given his Parkinson disease and dysphagia. He was evaluated by in fectious disease specialist who recommended oral Augmentin doxycycline for total of 10 days as blood cultures turn negative. Evaluated by speech therapy who recommended pureed diet with honey thick liquids Time Spent with Patient Time attestation: Total time spent providing and/or coordinating discharge services: Discharge coordination time: Greater than 30 minutes Physical Exam Vital Signs: Vital Signs: Last Vital Signs Temp 98.6 F 11/27/20 07:21 Pulse 66 11/27/20 07:21 Resp 18 11/27/20 07:21 BP 122/75 11/27/20 07:21 Pulse Ox 95 11/27/20 07:21 Body Mass Index 20.5 Const: Other: Constitutional : Alert, oriented, not in distress Neck : Normal inspection, Supple Cardiovascular : RRR, S1 S2, no lower extremity edema Respiratory : decrease bilateral air entry, bilateral basal crackles, no wheezes or rhonchi Gastrointestinal: soft, lax, Normal bowel sounds, Non tender Skin : Warm/Dry, No rash Neurological : Alert & oriented x3, No focal deficit, noted to have body tremors at baseline. DS: Data Data Completed and Pending Labs on day of discharge: Laboratory Results - last 24 hr 11/26/20 11/27/20 11/27/20 15:54 05:19 05:19 WBC 8.7 RBC 3.84 L Hgb 11.2 L Hct 34.3 L MCV 89.3 MCH 29.2 MCHC 32.7 RDW 13.6 Plt Count 252 MPV 10.6 Absolute Nucleated RBC 0.000 Nucleated RBC % (auto) 0.0 Sodium 139 Potassium 4.0 Chloride 105 Carbon Dioxide 29 Anion Gap 9 L BUN 17 H Creatinine 0.78 Estim Creat Clear Calc 66.5 Estimated GFR > 60 Random Glucose 120 H Calcium 8.4 COVID-19 (ALPHONSE) Negative COVID-19 Clin Com See Note Preliminary micro results at discharge 11/25/20 17:08 Blood Culture - Preliminary Blood - Venous No growth after 24 hours. 11/25/20 16:41 Blood Culture - Preliminary Blood - Venous No growth after 24 hours. Discharge Plan Discharge Patient Disposition: Home, Self-Care Referrals: Kimberly Jha MD [Primary Care Provider] - Discharge Medications: New amoxicillin-pot clavulanate [Augmentin] 875-125 mg tablet 1 tab PO BID Qty: 20 RF: 0 doxycycline monohydrate 150 mg capsule 150 mg PO BID Qty: 20 RF: 0 Continued thiamine HCl (vitamin B1) 100 mg tablet 100 mg PO DAILY RF: 0 fluticasone propionate 50 mcg/actuation spray,suspension 2 spray intranasal QAM RF: 0 albuterol sulfate 90 mcg/actuation HFA aerosol inhaler 2 puff PO Q4H PRN (Reason: dyspnea) RF: 0 oxcarbazepine 150 mg Tablet 150 mg PO BID RF: 0 sennosides [Senna Lax] 8.6 mg Tablet 8.6 mg PO BID PRN (Reason: Constipation) RF: 0 sucralfate 1 gram Tablet 0.5 g PO TID RF: 0 ondansetron HCl [Zofran] 4 mg Tablet 4 mg PO Q6H PRN (Reason: Nausea) RF: 0 lorazepam 0.5 mg Tablet 0.5 mg PO TID PRN (Reason: Anxiety) RF: 0 mirtazapine 30 mg Tablet 30 mg PO BEDTIME RF: 0 omeprazole 20 mg Capsule,Delayed Release(Dr/Ec) 20 mg PO BID RF: 0 folic acid 1 mg Tablet 1 mg PO DAILY RF: 0 bisacodyl 5 mg tablet,delayed release (DR/EC) 1 tab PO TID PRN (Reason: Nausea) RF: 0 metoprolol succinate 25 mg Tablet Extended Release 24 Hr 25 mg PO DAILY RF: 0 docusate sodium 100 mg Tablet 100 mg PO DAILY PRN (Reason: Constipation) RF: 0 finasteride 5 mg Tablet 5 mg PO BEDTIME RF: 0 carbidopa-levodopa 25-100 mg Tablet,Disintegrating 2 tab PO 5XD RF: 0 ferrous gluconate 324 mg (38 mg iron) Tablet 324 mg PO DAILY RF: 0 cholecalciferol (vitamin D3) [Vitamin D3] 50 mcg (2,000 unit) Capsule 50 mcg PO DAILY RF: 0 cetirizine 10 mg Capsule 10 mg PO DAILY RF: 0 oxycodone 7.5 mg Tablet, Oral Only 7.5 mg PO BID RF: 0 Myrbetriq 50 mg Tablet Extended Release 24 Hr 50 mg PO DAILY RF: 0 Lactobacillus acidophilus Tablet 1,000 mmu cells PO DAILY RF: 0 polyethylene glycol 3350 [Miralax] 17 gram/dose Powder 17 g PO DAILY PRN (Reason: Constipation) RF: 0 duloxetine 20 mg Capsule,Delayed Release(Dr/Ec) 20 mg PO BID RF: 0 Discharge Orders: Discharge Order (Routine); Ordered 11/27/20 Ordered By: Suri Mercedes Diet: advance to usual diet Activity on Discharge: As tolerated Stand Alone Forms: Patient Portal Discharge page Visit Report Forms: Patient Portal Discharge page Care Plan Goals: Read below Health Concerns: Read below Plan of Treatment: You were admitted to the hospital for treatment of pneumonia and low oxygen level. CT scan of the chest was consistent with bilateral infiltrates. You were treated with IV antibiotics with good response over the course of hospital stay. Evaluated by infectious disease specialist who recommended 10 more days of oral antibiotics. Continue doxycycline and Augmentin for 10 more days Come back to the hospital for any worsening fever or shortness of breath
== END 2020-11-27 14:54 | disposition home or self-care (01) | DRG 871 ==
LOC: HO.ED 19:36 → HO.EDOVER 20:33 → HO.S3 11-26 14:12 → HO.EDOVER 11-26 14:17 → HO.IMC 11-26 17:36
PROVIDERS: Nurse Practitioner Family; Physician Assistant Medical; Admitting Provider Internal Medicine; Emergency Provider Emergency Medicine; PCP Internal Medicine; Visit Provider Student in an Organized Health Care Education/Training Program
DX: A41.9 Sepsis, unspecified organism (principal); J96.01 Acute respiratory failure with hypoxia; J18.9 Pneumonia, unspecified organism; K21.9 Gastro-esophageal reflux disease without esophagitis; G20 Parkinson's disease; K27.9 Peptic ulcer, site unspecified, unspecified as acute or chronic, without hemorrhage or perforation; G89.29 Other chronic pain; K59.00 Constipation, unspecified; Z20.822 Contact with and (suspected) exposure to COVID-19; Z79.51 Long term (current) use of inhaled steroids; Z79.891 Long term (current) use of opiate analgesic; Z79.899 Other long term (current) drug therapy
CPT/HCPCS: 0241U; 11104; 36415; 71045; 71250; 80048; 80076; 81003; 82803; 83605; 83615; 83735; 83880; 84145; 84484; 85025; 85027; 85610; 86140; 87040; 87635; 92610; 93005; 94640; 96361; 96365; 96366; 96367; 96375; 99285; J0456; J0696; J1100; J1650; J2543

== ENCOUNTER 2020-12-11 09:32 | Inpatient (IN) | payer OTHER, MEDICARE, SELFPAY ==
[2020-12-11] VITALS (12 sets, daily range): BP systolic 105–135; BP diastolic 47–72; PULSE 72–108; RESP 13–28; TEMP 36.6–39.1; O2SAT 85–100; BMI 17.4
--- NOTE | ~2020-12-11 | CT_ITS ---
EXAMINATION: CT CHEST WITHOUT CONTRAST CLINICAL INFORMATION: Cough and fever. History of aspiration. COMPARISON: Previous chest x-ray and chest CT 11/25/2020 TECHNIQUE: Multidetector volumetric CT imaging of the chest was done. Axial MIP volume rendering provided. Sagittal and coronal reformatted images were obtained. This CT examination was performed using dose optimization techniques as appropriate, variously including the following: *Automated exposure control *Adjustment of mA and/or kV according to patient size (this includes techniques or standardized protocols for targeted exams where dose is matched to indication/reason for exam; i.e. extremities or head) *Use of iterative reconstruction technique DLP: 720 mGy-cm FINDINGS: LUNGS: There is persistent bilateral groundglass and semisolid opacities and increased interstitial markings. This is seen in the right upper, right middle and bilateral lower lobes and greatest at the lung bases. This is slightly improved from 11/25/2020 exam. The lungs are well-inflated suggestive of COPD. There is mild paraseptal emphysema... MEDIASTINUM: There is shotty mediastinal lymphadenopathy that is stable. The heart does not appear enlarged. There is a trace pericardial effusion or thickening. There is mild coronary artery calcification. The thoracic aorta is normal in caliber. PLEURA: There is no pleural effusion. No pleural mass or thickening. AXILLA: No lymphadenopathy. UPPER ABDOMEN: There are postsurgical changes to the GE junction region. There is a 2 cm right renal cyst. There is evidence of atherosclerotic disease.. OSSEOUS STRUCTURES: There are healing bilateral lower rib fractures. There is a mild L1 vertebral body compression fracture that appears unchanged. CT/CT chest wo con IMPRESSION: Improving groundglass and semisolid opacities and increased interstitial markings from 11/25/2020 exam suggestive of improving pneumonia.
--- NOTE | ~2020-12-11 | CT_ITS ---
EXAMINATION: CT HEAD WITHOUT CONTRAST CLINICAL INFORMATION: Fall, trauma, pain COMPARISON: CT had noncontrast 08/23/2020, 07/27/2020 TECHNIQUE: Contiguous axial imaging was performed from the skull base to vertex without intravenous administration of contrast. Additional 2-D coronal and sagittal reformatted images are generated on the CT workstation and uploaded to PACS. This CT examination was performed using dose optimization techniques as appropriate, variously including the following: *Automated exposure control *Adjustment of mA and/or kV according to patient size (this includes techniques or standardized protocols for targeted exams where dose is matched to indication/reason for exam; i.e. extremities or head) *Use of iterative reconstruction technique DLP: 720 mGy-cm FINDINGS: The left cerebral convexity subdural hygroma has resolved since prior exam 08/23/2020. There is no intracranial hemorrhage, hematoma, or extra-axial fluid collection. The ventricles are normal in size. There is no hydrocephalus, edema, or mass effect. The damico-white matter differentiation appears symmetric. There is no visible acute territorial infarct or mass lesion. The calvarium appears intact. There is no pneumocephalus or orbital emphysema. There are no air-fluid levels in the sinuses or middle ears or mastoids. There are some opacified caudal mastoid air cells. No bony thickening or destructive process. CT/CT head/brain wo con IMPRESSION: 1. No acute intracranial abnormality. 2. Resolution left cerebral convexity subdural hygroma since prior study 08/23/2020.
--- NOTE | ~2020-12-11 | XR_ITS ---
EXAMINATION: XR ANKLE, RIGHT CLINICAL INFORMATION: Fall COMPARISON: None TECHNIQUE: AP, lateral, and mortise views of the right ankle. FINDINGS: Bone alignment is normal. No fracture or dislocation is seen. There are small osteophytes at the anterior tibiotalar joint. The ankle mortise is otherwise normal. Soft tissues are normal. XR/XR ankle RT min 3V IMPRESSION: No fracture or dislocation seen.
--- NOTE | ~2020-12-11 | CT_ITS ---
EXAMINATION: CT CERVICAL SPINE WITHOUT CONTRAST CLINICAL INFORMATION: Fall, trauma, pain COMPARISON: CT cervical spine noncontrast 08/24/2019 TECHNIQUE: Multidetector volumetric CT imaging of the cervical spine is performed without contrast in the axial plane. Additional 2D reformatted coronal and sagittal images are generated on the CT workstation and uploaded to PACS. This CT examination was performed using dose optimization techniques as appropriate, variously including the following: *Automated exposure control *Adjustment of mA and/or kV according to patient size (this includes techniques or standardized protocols for targeted exams where dose is matched to indication/reason for exam; i.e. extremities or head) *Use of iterative reconstruction technique DLP: 240 mGy-cm FINDINGS: There is no vertebral compression fracture, fracture line, spondylolisthesis, or prevertebral soft tissue swelling. The craniocervical junction appears normal. The odontoid appears intact. There is normal cervical lordosis. There are degenerative disc changes again noted at C5-C6 and scattered multilevel mild facet degeneration. There is no perched facet. There is mild degenerative change between anterior arch C1 and the dens. There is no apical pneumothorax. CT/CT cervical spine wo con IMPRESSION: 1. No acute bony abnormality or prevertebral soft tissue swelling. 2. Degenerative disc changes C5-C6. Scattered multilevel mild facet degeneration.
--- NOTE | 2020-12-11 09:39 | ED.SOB ---
HPI - SOB/Dyspnea General Chief Complaint: Upper Respiratory Symptoms Stated Complaint: FEVER,SOB,SHAKY Time Seen by Provider: 12/11/20 09:33 Source: patient and old records reviewed Mode of arrival: ambulatory Limitations: no limitations History of Present Illness HPI Narrative: 75 yo male with parkinsons, COPD, diabetes just admitted for ?aspiration pneumonia 11/25 to 11/27 was COVID negative x 2 - was on zosyn completed augemtin and doxy 10 day course 12/07 - states 1 days of cough, fevers, shortness of breath after eating solid foods, also c/o feeling weak and fell in the kitchen hit head no LOC MD elicited complaint: shortness of breath and cough Pertinent past history: pneumonia Onset (ago): day(s) (1) Context: recent illness and other (started after eating solid foods) Timing: constant Severity: moderate Exacerbating factors: exertion and coughing Relieving factors: rest Known history of: recurrent pneumonia and aspiration pneumonia Associated symptoms: fever, cough, sputum production and chest congestion Treatment prior to arrival: none Related Data Home Medications Medication Instructions Recorded Confirmed Myrbetriq 50 mg PO DAILY 08/23/20 12/11/20 albuterol sulfate 2 puff PO Q4H PRN 08/23/20 12/11/20 carbidopa-levodopa 2 tab PO 5XD 08/23/20 12/11/20 cholecalciferol (vitamin D3) 50 mcg PO DAILY 08/23/20 12/11/20 [Vitamin D3] docusate sodium 100 mg PO BID PRN 08/23/20 12/11/20 duloxetine 20 mg PO BID 08/23/20 12/11/20 ferrous gluconate 324 mg PO DAILY 08/23/20 12/11/20 finasteride 5 mg PO BEDTIME 08/23/20 12/11/20 fluticasone propionate 2 spray INTRANASAL QAM 08/23/20 12/11/20 folic acid 1 mg PO DAILY 08/23/20 12/11/20 lorazepam 0.5 mg PO DAILY PRN 08/23/20 12/11/20 metoprolol succinate 25 mg PO DAILY 08/23/20 12/11/20 mirtazapine 30 mg PO BEDTIME 08/23/20 12/11/20 omeprazole 20 mg PO BID 08/23/20 12/11/20 ondansetron HCl [Zofran] 4 mg PO Q6H PRN 08/23/20 12/11/20 oxcarbazepine 150 mg PO BID 08/23/20 12/11/20 oxycodone 7.5 mg PO BID 08/23/20 12/11/20 polyethylene glycol 3350 [Miralax] 17 g PO DAILY PRN 08/23/20 12/11/20 sennosides [Senna Lax] 8.6 mg PO BID PRN 08/23/20 12/11/20 sucralfate 0.5 g PO TID 08/23/20 12/11/20 cetirizine 10 mg PO DAILY 12/11/20 12/11/20 guaifenesin 300 mg PO Q4H PRN 12/11/20 12/11/20 ketoconazole 1 appl TOPICAL 2XW PRN 12/11/20 12/11/20 lidocaine 1 appl TOPICAL BID PRN 12/11/20 12/11/20 meloxicam 7.5 mg PO DAILY PRN 12/11/20 12/11/20 vitamin B complex 2 cap PO DAILY 12/11/20 12/11/20 Allergies Allergy/AdvReac Type Severity Reaction Status Date / Time aspirin [ASA] Allergy Unknown UNKNOWN Verified 08/23/20 16:16 Review of Systems Review of Systems: Constitutional : pos Fever, No Chills ENT/Mouth : No sore throat, No Rhinorrhea, No Swallowing Difficulty Eyes: No Eye Pain, No Swelling, No Redness Cardiovascular : No Chest Pain, positive SOB, No Orthopnea, no Edema Respiratory : pos Cough, No Sputum, pos Wheezing, positive dyspnea Gastrointestinal : No Nausea, No Vomiting, No Diarrhea, No abdominal Pain, No Hematochezia, No Melena Genitourinary : No Dysuria, No Urinary Frequency, No Hematuria Musculoskeletal : No joint pain, No Myalgias Skin : No Skin Lesions, No rash Neuro : pos Weakness, No Numbness, No Dizziness, No Headache Psych : No Anxiety/Panic, No Depression Heme/Lymph: No Bruising, No Lymphadenopathy Endocrine : No Polyuria, No Polydipsia All other systems reviewed and are negative PMFSH Past Medical History Attestation statement: The following information was validated with the patient. Medical History BPH (benign prostatic hyperplasia) Constipation COPD (chronic obstructive pulmonary disease) Dysphagia Elevated lactic acid level GERD (gastroesophageal reflux disease) Hypertension Hypoxia Leukocytosis Parkinson disease PUD (peptic ulcer disease) Surgical History S/P gastric surgery Family History Family History Other Bladder cancer Diabetes Social History Social History Household Members: Family Housing: House Alcohol intake: never Smoking Status: Former smoker Advance Directives: No Advance Directives Information Provided: No service: Yes Physical Exam Vital Signs: Vital Signs: Last Vital Signs Temp 101 F H 12/11/20 11:14 Pulse 94 12/11/20 11:14 Resp 19 12/11/20 11:14 BP 113/69 12/11/20 11:14 Pulse Ox 100 12/11/20 11:14 Body Mass Index 17.4 Appearance: Alert. Oriented X3. No acute distress. Eyes: Pupils equal, round and reactive to light. ENT: Pharynx normal. small contusion posterior scalp Neck: Normal inspection. Neck supple. CVS: tahycardic heart rate and rhythm. Pulses normal. Respiratory: No respiratory distress. Breath sounds decreased RLL Abdomen: Soft and nontender. Skin: Skin warm and dry. Normal skin color. Normal skin turgor. Extremities: No lower extremity edema. No calf ttp R ankle mild swelling noted distal NV intact Neuro: Oriented X 3. flat affect, rigid, no focal deficitis No sensory deficit. Course Course Course Narrative: will admit for further workup MDM - SOB/Dyspnea MDM Narrative Medical decision making narrative: 75 yo male with parkinson's disease, hx of recurrent pneumonia here with fevers, cough, r/o aspiration pneumonia - at this time labs, tylenol, CT scan of chest/head/cspine to r/o trauma and infection - likely admit given recent antibiotic use, suspect he aspirated again Lab Data Result diagrams: 12/11/20 10:04 12/11/20 10:04 Labs: Lab Results 12/11/20 12/11/20 12/11/20 Range/Units 10:04 10:04 10:04 WBC 12.8 H (4.8-10.8) X10*3/uL RBC 4.05 L (4.60-5.80) X10*6/uL Hgb 11.7 L (14.0-18.0) g/dl Hct 36.5 L (42-52) % MCV 90.1 (80-98) fL MCH 28.9 (27.0-33.0) pg MCHC 32.1 (31.0-36.0) g/dl RDW 13.9 (11.0-16.0) % Plt Count 287 (160-400) X10*3/uL MPV 10.9 (9.4-12.4) fL Immature Gran % (Auto) 0.3 (0.0-0.4) % Neut % (Auto) 91.5 H (45-73) % Lymph % (Auto) 2.8 L (20-40) % [place] % (Auto) 5.1 (2-11) % Eos % (Auto) 0.1 (0-4) % Baso % (Auto) 0.2 (0-2) % Lymph # (Auto) 0.4 L (1.2-4.9) X10*3/uL [place] # (Auto) 0.7 (0.1-1.2) X10*3/uL Eos # (Auto) 0.0 (0.0-0.4) X10*3/uL Baso # (Auto) 0.0 (0.0-0.2) X10*3/uL Abs Immat Gran (auto) 0.04 H (0.00-0.03) X10*3/uL Absolute Neuts (auto) 11.7 H (2.0-8.3) X10*3/uL Absolute Nucleated RBC 0.000 (0.0-0.012) X10*3/uL Nucleated RBC % (auto) 0.0 (0.0-0.2) /100WBC Smear Tech's Comments VERIFIED PT (10.8-13.0) SEC INR (0.9-1.1) APTT (24.1-38.0) SEC Sodium 137 (135-145) mmol/L Potassium 4.9 D (3.3-5.1) mmol/L Chloride 101 (96-108) mmol/L Carbon Dioxide 26 (22-29) mmol/L Anion Gap 15 (12-20) BUN 23 H (9-16) mg/dL Creatinine 0.90 (0.5-1.4) mg/dL Estim Creat Clear Calc 53.4 Estimated GFR > 60 Random Glucose 151 H (60-115) mg/dL Lactic Acid (0.5-2.0) mmol/L Calcium 8.4 (8.4-10.2) mg/dL Magnesium 1.9 (1.6-2.6) mg/dL Ferritin (20-250) ng/mL Total Bilirubin 0.9 (0.0-1.0) mg/dL Direct Bilirubin 0.3 (0.0-0.5) mg/dL AST 11 (5-37) U/L ALT < 6 (0-40) U/L Alkaline Phosphatase 92 (39-117) U/L Lactate Dehydrogenase 194 (118-273) U/L Troponin I High Sens (<3.5-35.0) ng/L B-Natriuretic Peptide 34 (<100) pg/mL Total Protein 6.2 L (6.5-8.0) g/dL Albumin 3.5 (3.5-5.0) g/dL Urine Color Urine Appearance Urine pH (5.0-8.0) Ur Specific [place] (1.005-1.025) Urine Protein (NEG-TRACE) MG/DL Urine Glucose (UA) (NEG) MG/DL Urine Ketones (NEG) MG/DL Urine Blood (NEG) Urine Nitrite (NEG) Ur Leukocyte Esterase (NEG) Coronavirus (PCR) (Negative) Influenza Type A (PCR) (Negative) Influenza Type B (PCR) (Negative) RSV RNA Qual (PCR) (Negative) 12/11/20 12/11/20 12/11/20 Range/Units 10:04 10:04 10:04 WBC (4.8-10.8) X10*3/uL RBC (4.60-5.80) X10*6/uL Hgb (14.0-18.0) g/dl Hct (42-52) % MCV (80-98) fL MCH (27.0-33.0) pg MCHC (31.0-36.0) g/dl RDW (11.0-16.0) % Plt Count (160-400) X10*3/uL MPV (9.4-12.4) fL Immature Gran % (Auto) (0.0-0.4) % Neut % (Auto) (45-73) % Lymph % (Auto) (20-40) % [place] % (Auto) (2-11) % Eos % (Auto) (0-4) % Baso % (Auto) (0-2) % Lymph # (Auto) (1.2-4.9) X10*3/uL [place] # (Auto) (0.1-1.2) X10*3/uL Eos # (Auto) (0.0-0.4) X10*3/uL Baso # (Auto) (0.0-0.2) X10*3/uL Abs Immat Gran (auto) (0.00-0.03) X10*3/uL Absolute Neuts (auto) (2.0-8.3) X10*3/uL Absolute Nucleated RBC (0.0-0.012) X10*3/uL Nucleated RBC % (auto) (0.0-0.2) /100WBC Smear Tech's Comments PT 13.1 H (10.8-13.0) SEC INR 1.1 (0.9-1.1) APTT 30.8 (24.1-38.0) SEC Sodium (135-145) mmol/L Potassium (3.3-5.1) mmol/L Chloride (96-108) mmol/L Carbon Dioxide (22-29) mmol/L Anion Gap (12-20) BUN (9-16) mg/dL Creatinine (0.5-1.4) mg/dL Estim Creat Clear Calc Estimated GFR Random Glucose (60-115) mg/dL Lactic Acid 2.7 H* (0.5-2.0) mmol/L Calcium (8.4-10.2) mg/dL Magnesium (1.6-2.6) mg/dL Ferritin 205 (20-250) ng/mL Total Bilirubin (0.0-1.0) mg/dL Direct Bilirubin (0.0-0.5) mg/dL AST (5-37) U/L ALT (0-40) U/L Alkaline Phosphatase (39-117) U/L Lactate Dehydrogenase (118-273) U/L Troponin I High Sens (<3.5-35.0) ng/L B-Natriuretic Peptide (<100) pg/mL Total Protein (6.5-8.0) g/dL Albumin (3.5-5.0) g/dL Urine Color Urine Appearance Urine pH (5.0-8.0) Ur Specific [place] (1.005-1.025) Urine Protein (NEG-TRACE) MG/DL Urine Glucose (UA) (NEG) MG/DL Urine Ketones (NEG) MG/DL Urine Blood (NEG) Urine Nitrite (NEG) Ur Leukocyte Esterase (NEG) Coronavirus (PCR) (Negative) Influenza Type A (PCR) (Negative) Influenza Type B (PCR) (Negative) RSV RNA Qual (PCR) (Negative) 12/11/20 12/11/20 12/11/20 Range/Units 10:05 10:05 12:14 WBC (4.8-10.8) X10*3/uL RBC (4.60-5.80) X10*6/uL Hgb (14.0-18.0) g/dl Hct (42-52) % MCV (80-98) fL MCH (27.0-33.0) pg MCHC (31.0-36.0) g/dl RDW (11.0-16.0) % Plt Count (160-400) X10*3/uL MPV (9.4-12.4) fL Immature Gran % (Auto) (0.0-0.4) % Neut % (Auto) (45-73) % Lymph % (Auto) (20-40) % [place] % (Auto) (2-11) % Eos % (Auto) (0-4) % Baso % (Auto) (0-2) % Lymph # (Auto) (1.2-4.9) X10*3/uL [place] # (Auto) (0.1-1.2) X10*3/uL Eos # (Auto) (0.0-0.4) X10*3/uL Baso # (Auto) (0.0-0.2) X10*3/uL Abs Immat Gran (auto) (0.00-0.03) X10*3/uL Absolute Neuts (auto) (2.0-8.3) X10*3/uL Absolute Nucleated RBC (0.0-0.012) X10*3/uL Nucleated RBC % (auto) (0.0-0.2) /100WBC Smear Tech's Comments PT (10.8-13.0) SEC INR (0.9-1.1) APTT (24.1-38.0) SEC Sodium (135-145) mmol/L Potassium (3.3-5.1) mmol/L Chloride (96-108) mmol/L Carbon Dioxide (22-29) mmol/L Anion Gap (12-20) BUN (9-16) mg/dL Creatinine (0.5-1.4) mg/dL Estim Creat Clear Calc Estimated GFR Random Glucose (60-115) mg/dL Lactic Acid (0.5-2.0) mmol/L Calcium (8.4-10.2) mg/dL Magnesium (1.6-2.6) mg/dL Ferritin (20-250) ng/mL Total Bilirubin (0.0-1.0) mg/dL Direct Bilirubin (0.0-0.5) mg/dL AST (5-37) U/L ALT (0-40) U/L Alkaline Phosphatase (39-117) U/L Lactate Dehydrogenase (118-273) U/L Troponin I High Sens < 3.5 (<3.5-35.0) ng/L B-Natriuretic Peptide (<100) pg/mL Total Protein (6.5-8.0) g/dL Albumin (3.5-5.0) g/dL Urine Color YELLOW Urine Appearance CLEAR Urine pH 8.0 (5.0-8.0) Ur Specific [place] 1.015 (1.005-1.025) Urine Protein NEG (NEG-TRACE) MG/DL Urine Glucose (UA) NEG (NEG) MG/DL Urine Ketones NEG (NEG) MG/DL Urine Blood NEG (NEG) Urine Nitrite NEG (NEG) Ur Leukocyte Esterase NEG (NEG) Coronavirus (PCR) NEGATIVE (Negative) Influenza Type A (PCR) NEGATIVE (Negative) Influenza Type B (PCR) NEGATIVE (Negative) RSV RNA Qual (PCR) NEGATIVE (Negative) ECG Data Attestation: I personally reviewed and interpreted this ECG as follows: ECG interpretation date: 12/11/20 ECG interpretation time: 10:16 Interpretation: Rate: 104 Rhythm: sinus tachycardia [place]: left Normal P waves. Normal CARLOS. Normal QRS complex. ST T wave : no STACY, artifact noted, nonspecific qTC: normal prior studies: no acute ischemia The study has been interpreted contemporaneously by me. . Discharge Plan Discharge Clinical Impression: Fever, Acidosis, lactic, Weakness, Aspiration pneumonia, Hypoxia Patient Disposition: Admitted As Inpatient Prescriptions: No Action fluticasone propionate 50 mcg/actuation spray,suspension 2 spray intranasal QAM RF: 0 albuterol sulfate 90 mcg/actuation HFA aerosol inhaler 2 puff PO Q4H PRN (Reason: dyspnea) RF: 0 oxcarbazepine 150 mg Tablet 150 mg PO BID RF: 0 sennosides [Senna Lax] 8.6 mg Tablet 8.6 mg PO BID PRN (Reason: Constipation) RF: 0 sucralfate 1 gram Tablet 0.5 g PO TID RF: 0 ondansetron HCl [Zofran] 4 mg Tablet 4 mg PO Q6H PRN (Reason: Nausea) RF: 0 lorazepam 0.5 mg Tablet 0.5 mg PO DAILY PRN (Reason: Anxiety) RF: 0 mirtazapine 30 mg Tablet 30 mg PO BEDTIME RF: 0 omeprazole 20 mg Capsule,Delayed Release(Dr/Ec) 20 mg PO BID RF: 0 folic acid 1 mg Tablet 1 mg PO DAILY RF: 0 metoprolol succinate 25 mg Tablet Extended Release 24 Hr 25 mg PO DAILY RF: 0 docusate sodium 100 mg Tablet 100 mg PO BID PRN (Reason: Constipation) RF: 0 finasteride 5 mg Tablet 5 mg PO BEDTIME RF: 0 carbidopa-levodopa 25-100 mg Tablet,Disintegrating 2 tab PO 5XD RF: 0 ferrous gluconate 324 mg (38 mg iron) Tablet 324 mg PO DAILY RF: 0 cholecalciferol (vitamin D3) [Vitamin D3] 50 mcg (2,000 unit) Capsule 50 mcg PO DAILY RF: 0 oxycodone 7.5 mg Tablet, Oral Only 7.5 mg PO BID RF: 0 Myrbetriq 50 mg Tablet Extended Release 24 Hr 50 mg PO DAILY RF: 0 polyethylene glycol 3350 [Miralax] 17 gram/dose Powder 17 g PO DAILY PRN (Reason: Constipation) RF: 0 duloxetine 20 mg Capsule,Delayed Release(Dr/Ec) 20 mg PO BID RF: 0 cetirizine 10 mg Tablet 10 mg PO DAILY RF: 0 meloxicam 7.5 mg Tablet 7.5 mg PO DAILY PRN (Reason: Pain) RF: 0 vitamin B complex Capsule 2 cap PO DAILY RF: 0 guaifenesin 100 mg/5 mL Liquid 300 mg PO Q4H PRN (Reason: COUGH) RF: 0 ketoconazole 2 % Shampoo 1 appl TOPICAL 2XW PRN (Reason: RASH) RF: 0 lidocaine 4 % Cream 1 appl TOPICAL BID PRN (Reason: Pain) RF: 0
--- NOTE | 2020-12-11 09:47 | ECG_ITS ---
Test Reason : SOB Blood Pressure : / mmHG Vent. Rate : 104 BPM Atrial Rate : 104 BPM P-R Int : 190 ms QRS Dur : 080 ms QT Int : 342 ms P-R-T Axes : 068 -14 071 degrees QTc Int : 449 ms Sinus tachycardia Possible Left atrial enlargement Nonspecific T wave abnormality Abnormal ECG When compared with ECG of 25-NOV-2020 16:28, Nonspecific T wave abnormality now evident in Lateral leads Referred By: My Ross Electronically Signed By:JORJE PHAN
[2020-12-11] MEDS: Piperacillin Sodium/Tazobactam 3.375 GM in 0.9 % Sodium Chloride 50 ML IV ×3 (10:08→22:51)
[2020-12-11] MEDS: Acetaminophen Oral Liquid 650 MG/20.3 ML SOLUTION PO (10:08)
--- NOTE | 2020-12-11 10:22 | PC.NURSE ---
Pt noted to have brusing on right heel ankle md aware x ray ordered
[2020-12-11 10:26] LABS: Basophils Percent Auto 0.2 % (0-2); Eosinophils Percent Auto 0.1 % (0-4); Hematocrit 36.5 % (42-52); Hemoglobin 11.7 g/dl (14.0-18.0); Imm Gran Abs Auto 0.04 X10*3/uL (0.00-0.03); Imm Gran Pct Auto 0.3 % (0.0-0.4); Lymphocytes Absolute Auto 0.4 X10*3/uL (1.2-4.9); Lymphocytes Percent Auto 2.8 % (20-40); MANUAL DIFF FLAG SCAN; Mean Corpuscular HGB Conc 32.1 g/dl (31.0-36.0); Mean Corpuscular Hemoglobin 28.9 pg (27.0-33.0); Mean Corpuscular Volume 90.1 fL (80-98); Mean Platelet Volume 10.9 fL (9.4-12.4); Monocytes Absolute Auto 0.7 X10*3/uL (0.1-1.2); Monocytes Percent Auto 5.1 % (2-11); Neutrophils Absolute Auto 11.7 X10*3/uL (2.0-8.3); Neutrophils Percent Auto 91.5 % (45-73); Platelet Count 287 X10*3/uL (160-400); Red Blood Count 4.05 X10*6/uL (4.60-5.80); Red Cell Distribution Width 13.9 % (11.0-16.0); SCAN SMEAR FLAG 1; White Blood Count 12.8 X10*3/uL (4.8-10.8)
[2020-12-11 10:33] LABS: INTERNATIONAL NORM RATIO 1.1 (0.9-1.1); Prothrombin Time 13.1 SEC (10.8-13.0)
[2020-12-11 10:35] LABS: Partial Thromboplastin Time 30.8 SEC (24.1-38.0)
[2020-12-11 10:53] LABS: SLIDE REVIEW VERIFIED
[2020-12-11 10:57] LABS: Lactic Acid 2.7 mmol/L (0.5-2.0)
[2020-12-11 10:57] LABS: Influenza A PCR NEGATIVE (Negative); Influenza B PCR NEGATIVE (Negative); Resp Syncy Virus RNA Qual PCR NEGATIVE (Negative); SARS COV2 PCR INHOUSE NEGATIVE (Negative)
[2020-12-11 10:59] LABS: Troponin-I High Sensitivity < 3.5 ng/L (<3.5-35.0)
[2020-12-11 11:00] LABS: B Type Natriuretic Peptide 34 pg/mL (<100)
[2020-12-11 11:01] LABS: Albumin Level 3.5 g/dL (3.5-5.0); Alkaline Phosphatase 92 U/L (39-117); Anion Gap 15 (12-20); Bilirubin Direct 0.3 mg/dL (0.0-0.5); Bilirubin Total 0.9 mg/dL (0.0-1.0); Blood Urea Nitrogen 23 mg/dL (9-16); Calcium 8.4 mg/dL (8.4-10.2); Carbon Dioxide 26 mmol/L (22-29); Chloride 101 mmol/L (96-108); Creatinine Clr Calc Pharmacy 53.4; Estimated Glomerular Filt Rate > 60; Glucose Random 151 mg/dL (60-115); Lactate Dehydrogenase 194 U/L (118-273); Magnesium 1.9 mg/dL (1.6-2.6); Potassium 4.9 mmol/L (3.3-5.1); Sodium 137 mmol/L (135-145); Total Protein 6.2 g/dL (6.5-8.0)
[2020-12-11] MEDS: 0.9 % Sodium Chloride 1,000 ML 999 ML IVCONT (11:13)
[2020-12-11 11:14] LABS: Alanine Aminotransferase < 6 U/L (0-40); Aspartate Amino Transferase 11 U/L (5-37)
[2020-12-11 11:16] LABS: Ferritin 205 ng/mL (20-250)
[2020-12-11 12:22] LABS: Reflex Lactate? Lactic Acid Added
[2020-12-11 12:32] LABS: Appearance Urine CLEAR; Color Urine YELLOW; Glucose Urine UA NEG (NEG); Leukocyte Esterase Urine NEG (NEG); Nitrite Urine NEG (NEG); Specific Gravity - Urine 1.015 (1.005-1.025); Urine Blood NEG (NEG); Urine Ketones NEG (NEG); Urine Protein NEG (NEG-TRACE)
[2020-12-11] MEDS: vancomycin HCL 750 MG in 0.9 % Sodium Chloride 250 ML 265 MG IV (12:50)
[2020-12-11 12:51] LABS: ~Lactic Acid-LAB USE ONLY 1.9 mmol/L (0.5-2.0)
--- NOTE | 2020-12-11 13:38 | PC.NURSE ---
spoke with pts updated on plan for admission
--- NOTE | 2020-12-11 16:13 | P.HPHOSP_ITS ---
History of Present Illness Date of Service: 12/11/20 <Charo Gordon NP - Last Filed: 12/12/20 08:22> Chief Complaint: Cough <Charo Gordon NP - Last Filed: 12/12/20 08:22> 75 year old man presenting with cough and shortness of breath. He has had a cough, fever and shortness of breath after eating solid food. He had a recent admission for aspiration pneumonia on Zosyn and completed doxycycline and a ugmentin. It was recommended that the patient have a pureed diet with honey thick liquids. it appears that he has not been following that diet. He was noted to have a fever of 102.4, heart rate 108, respiratory rate 24, Saturation of 85%. He received a dose of zosyn, vancomycin, IV fluids, Tylenol. he will be admitted for severe sepsis related to aspiration pneumonia. <Charo Gordon NP - Last Filed: 12/12/20 08:22> Review of Systems Review of Systems: Denies any recent fever chills or decrease in appetite respiratory denies any shortness of breath coverage production cardiovascular is adjustment of any PND or edema gastrointestinal denies any dysphagia abdominal pain nausea vomiting or diarrhea genitourinary denies any dysuria frequency or hematuria musculoskeletal denies any joint pain or swelling neuropsych denies any weakness or seizures all other systems reviewed are negative <Charo Gordon NP - Last Filed: 12/12/20 08:22> [facility] Medical History: Medical History BPH (benign prostatic hyperplasia) Constipation COPD (chronic obstructive pulmonary disease) Dysphagia Elevated lactic acid level GERD (gastroesophageal reflux disease) Hypertension Hypoxia Leukocytosis Parkinson disease PUD (peptic ulcer disease) <Charo Gordon NP - Last Filed: 12/12/20 08:22> Family History: Family History Other Bladder cancer Diabetes <Charo Gordon NP - Last Filed: 12/12/20 08:22> Surgical History: Surgical History S/P gastric surgery <Charo Gordon NP - Last Filed: 12/12/20 08:22> Social History: Social History Household Members: Spouse Housing: House Do you presently have visiting nurse or other home services: Yes Alcohol intake: never Smoking Status: Former smoker Use of substances other than those prescribed or required for medical reasons: No Currently Displaying Signs/Symptoms of Drug Intoxication Withdrawal: No Have you been hit, kicked, punched, or otherwise hurt by someone within the past year? If so, by whom?: No Do you feel safe in your current relationship?: Yes Is there a partner from a previous relationship who is making you feel unsafe now?: No Are you made to feel afraid or neglected: No Advance Directives: No Advance Directives Information Provided: No Do you have thoughts of harming others: None Do you have a plan to hurt others: No Plan Recently lost weight without trying: No service: Yes Current occupational status: retired <Charo Gordon NP - Last Filed: 12/12/20 08:22> Meds Allergies/Adverse reactions: Allergies Allergy/AdvReac Type Severity Reaction Status Date / Time aspirin [ASA] Allergy Unknown UNKNOWN Verified 08/23/20 16:16 <Charo Gordon NP - Last Filed: 12/12/20 08:22> Active Medications: Current Medications Generic Name Dose Route Start Last Admin Trade Name Freq PRN Reason Stop Dose Admin Albuterol Sulfate 2 puff 12/11/20 16:10 Albuterol Sulfate 90 Mcg 8 Gm Inhaler INHALE Q4H PRN dyspnea Docusate Sodium 100 mg 12/11/20 16:10 Docusate Sodium 100 Mg Capsule PO BID PRN Constipation Duloxetine HCl 20 mg 12/11/20 21:00 Duloxetine Hcl 20 Mg Capsule.Dr PO BID ELIAS Finasteride 5 mg 12/11/20 21:00 Finasteride 5 Mg Tablet PO BEDTIME ELIAS Fluticasone Propionate 2 spray 12/12/20 09:00 Fluticasone Propionate Nasal 16 Gm [place] NOSTRIL-B DAILY ELIAS Folic Acid 1 mg 12/12/20 09:00 Folic Acid 1 Mg Tablet PO DAILY ELIAS Guaifenesin 5 ml 12/11/20 16:10 Guaifenesin 100 Mg/5 Ml Liquid PO Q4H PRN Cough Loratadine 10 mg 12/12/20 09:00 Loratadine 10 Mg Tablet PO DAILY ELIAS Lorazepam 0.5 mg 12/11/20 16:10 Lorazepam 0.5 Mg Tablet PO DAILY PRN Anxiety Metoprolol Succinate 25 mg 12/12/20 09:00 Metoprolol Succinate Er 25 Mg Tab.Er.24h PO DAILY [facility] Protocol Mirabegron 50 mg 12/12/20 09:00 Mirabegron 50 Mg Tab.Er.24h PO DAILY [facility] Mirtazapine 30 mg 12/11/20 21:00 Mirtazapine 30 Mg Tablet PO BEDTIME [facility] Non-Formulary Medication 2 tab 12/11/20 18:00 Carbidopa-Levodopa PO 5XD [facility] Non-Formulary Medication 324 mg 12/12/20 09:00 Ferrous Gluconate PO DAILY [facility] Omeprazole 20 mg 12/11/20 21:00 Omeprazole 20 Mg Capsule.Dr PO BID [facility] Oxcarbazepine 150 mg 12/11/20 21:00 Oxcarbazepine 150 Mg Tablet PO BID [facility] Oxycodone HCl 7.5 mg 12/11/20 21:00 Oxycodone Hcl Immed Release 5 Mg Tablet PO BID [facility] Pharmacy Consult 1 each 12/11/20 09:46 Consult Rx Perform Med Rec MISCELLANE ONCE PRN Consult order Polyethylene Glycol 17 gm 12/11/20 16:10 Polyethylene Glycol 3350 17 Gm Powd.Pack PO DAILY PRN Constipation Senna 8.6 mg 12/11/20 16:10 Sennosides 8.6 Mg Tablet PO BID PRN Constipation Sucralfate 0.5 gm 12/11/20 21:00 Sucralfate 1 Gm Tablet PO TID [facility] Vitamin D 50 mcg 12/12/20 09:00 Cholecalciferol (Vitamin D3) 25 Mcg Tablet PO DAILY [facility] <Charo Gordon FLIGHT COMMUNICATIONS SPECIALIST - Last Filed: 12/12/20 08:22> Home medications: Home Medications Medication Instructions Recorded Confirmed Last Taken Type Myrbetriq 50 mg PO DAILY 08/23/20 12/11/20 12/11/20 History albuterol sulfate 2 puff PO Q4H PRN 08/23/20 12/11/20 12/11/20 History carbidopa-levodopa 2 tab PO 5XD 08/23/20 12/11/20 12/11/20 History cholecalciferol (vitamin D3) 50 mcg PO DAILY 08/23/20 12/11/20 12/11/20 History [Vitamin D3] docusate sodium 100 mg PO BID PRN 08/23/20 12/11/20 11/25/20 08:00 History duloxetine 20 mg PO BID 08/23/20 12/11/20 12/11/20 History ferrous gluconate 324 mg PO DAILY 08/23/20 12/11/20 12/11/20 History finasteride 5 mg PO BEDTIME 08/23/20 12/11/20 12/10/20 History fluticasone propionate 2 spray INTRANASAL QAM 08/23/20 12/11/20 12/11/20 History folic acid 1 mg PO DAILY 08/23/20 12/11/20 12/11/20 History lorazepam 0.5 mg PO DAILY PRN 08/23/20 12/11/20 12/11/20 History metoprolol succinate 25 mg PO DAILY 08/23/20 12/11/20 12/11/20 History mirtazapine 30 mg PO BEDTIME 08/23/20 12/11/20 12/10/20 History omeprazole 20 mg PO BID 08/23/20 12/11/20 12/11/20 History ondansetron HCl [Zofran] 4 mg PO Q6H PRN 08/23/20 12/11/20 11/25/20 08:00 History oxcarbazepine 150 mg PO BID 08/23/20 12/11/20 12/11/20 History oxycodone 7.5 mg PO BID 08/23/20 12/11/20 12/10/20 History polyethylene glycol 3350 [Miralax] 17 g PO DAILY PRN 08/23/20 12/11/20 11/25/20 08:00 History sennosides [Senna Lax] 8.6 mg PO BID PRN 08/23/20 12/11/20 11/25/20 08:00 History sucralfate 0.5 g PO TID 08/23/20 12/11/20 12/11/20 History cetirizine 10 mg PO DAILY 12/11/20 12/11/20 12/11/20 History guaifenesin 300 mg PO Q4H PRN 12/11/20 12/11/20 12/11/20 History ketoconazole 1 appl TOPICAL 2XW PRN 12/11/20 12/11/20 Unknown History lidocaine 1 appl TOPICAL BID PRN 12/11/20 12/11/20 Unknown History meloxicam 7.5 mg PO DAILY PRN 12/11/20 12/11/20 Unknown History vitamin B complex 2 cap PO DAILY 12/11/20 12/11/20 12/11/20 History <Charo Gordon NP - Last Filed: 12/12/20 08:22> Physical Exam Vital Signs and Narrative: Vital Signs: Last Vital Signs Temp 98.3 F 12/11/20 14:39 Pulse 86 12/11/20 14:39 Resp 13 12/11/20 14:39 BP 121/71 12/11/20 14:39 Pulse Ox 100 12/11/20 14:39 Body Mass Index 17.4 <Charo Gordon NP - Last Filed: 12/12/20 08:22> Appearing in no acute distress head is normocephalic atraumatic eyes pupils are PERRLA sclera is anicteric mouth throat mucous membranes are intact and moist neck is supple no lymphadenopathy, no JVD noted lung sounds normal expansion heart regular rate rhythm, clear S1, S2 positive bowel sounds, abdomen is soft, nontender neuro patient is alert x3, no focal deficits <Charo Gordon NP - Last Filed: 12/12/20 08:22> Results Labs CBC and Chem 7: : 12/12/20 04:12 12/12/20 04:12 <Charo Gordon NP - Last Filed: 12/12/20 08:22> Labs: Laboratory Results - last 24 hr 12/11/20 12/11/20 12/11/20 10:04 10:04 10:04 MCV 90.1 MCH 28.9 MCHC 32.1 RDW 13.9 Plt Count 287 MPV 10.9 Immature Gran % (Auto) 0.3 Neut % (Auto) 91.5 H Lymph % (Auto) 2.8 L Larue % (Auto) 5.1 Eos % (Auto) 0.1 Baso % (Auto) 0.2 Lymph # (Auto) 0.4 L Larue # (Auto) 0.7 Eos # (Auto) 0.0 Baso # (Auto) 0.0 Abs Immat Gran (auto) 0.04 H Absolute Neuts (auto) 11.7 H Absolute Nucleated RBC 0.000 Nucleated RBC % (auto) 0.0 Smear Tech's Comments VERIFIED PT INR APTT Anion Gap 15 Estim Creat Clear Calc 53.4 Estimated GFR > 60 Random Glucose 151 H Lactic Acid Lactic Acid Fup @ 2Hr Calcium 8.4 Magnesium 1.9 Ferritin Total Bilirubin 0.9 Direct Bilirubin 0.3 AST 11 ALT < 6 Alkaline Phosphatase 92 Lactate Dehydrogenase 194 Troponin I High Sens B-Natriuretic Peptide 34 Total Protein 6.2 L Albumin 3.5 Urine Color Urine Appearance Urine pH Ur Specific Percy Urine Protein Urine Glucose (UA) Urine Ketones Urine Blood Urine Nitrite Ur Leukocyte Esterase Coronavirus (PCR) Influenza Type A (PCR) Influenza Type B (PCR) RSV RNA Qual (PCR) 12/11/20 12/11/20 12/11/20 10:04 10:04 10:04 MCV MCH MCHC RDW Plt Count MPV Immature Gran % (Auto) Neut % (Auto) Lymph % (Auto) Larue % (Auto) Eos % (Auto) Baso % (Auto) Lymph # (Auto) Larue # (Auto) Eos # (Auto) Baso # (Auto) Abs Immat Gran (auto) Absolute Neuts (auto) Absolute Nucleated RBC Nucleated RBC % (auto) Smear Tech's Comments PT 13.1 H INR 1.1 APTT 30.8 Anion Gap Estim Creat Clear Calc Estimated GFR Random Glucose Lactic Acid 2.7 H* Lactic Acid Fup @ 2Hr Calcium Magnesium Ferritin 205 Total Bilirubin Direct Bilirubin AST ALT Alkaline Phosphatase Lactate Dehydrogenase Troponin I High Sens B-Natriuretic Peptide Total Protein Albumin Urine Color Urine Appearance Urine pH Ur Specific Percy Urine Protein Urine Glucose (UA) Urine Ketones Urine Blood Urine Nitrite Ur Leukocyte Esterase Coronavirus (PCR) Influenza Type A (PCR) Influenza Type B (PCR) RSV RNA Qual (PCR) 12/11/20 12/11/20 12/11/20 10:05 10:05 12:14 MCV MCH MCHC RDW Plt Count MPV Immature Gran % (Auto) Neut % (Auto) Lymph % (Auto) Larue % (Auto) Eos % (Auto) Baso % (Auto) Lymph # (Auto) Larue # (Auto) Eos # (Auto) Baso # (Auto) Abs Immat Gran (auto) Absolute Neuts (auto) Absolute Nucleated RBC Nucleated RBC % (auto) Smear Tech's Comments PT INR APTT Anion Gap Estim Creat Clear Calc Estimated GFR Random Glucose Lactic Acid Lactic Acid Fup @ 2Hr Calcium Magnesium Ferritin Total Bilirubin Direct Bilirubin AST ALT Alkaline Phosphatase Lactate Dehydrogenase Troponin I High Sens < 3.5 B-Natriuretic Peptide Total Protein Albumin Urine Color YELLOW Urine Appearance CLEAR Urine pH 8.0 Ur Specific Percy 1.015 Urine Protein NEG Urine Glucose (UA) NEG Urine Ketones NEG Urine Blood NEG Urine Nitrite NEG Ur Leukocyte Esterase NEG Coronavirus (PCR) NEGATIVE Influenza Type A (PCR) NEGATIVE Influenza Type B (PCR) NEGATIVE RSV RNA Qual (PCR) NEGATIVE 12/11/20 12:23 MCV MCH MCHC RDW Plt Count MPV Immature Gran % (Auto) Neut % (Auto) Lymph % (Auto) Larue % (Auto) Eos % (Auto) Baso % (Auto) Lymph # (Auto) Larue # (Auto) Eos # (Auto) Baso # (Auto) Abs Immat Gran (auto) Absolute Neuts (auto) Absolute Nucleated RBC Nucleated RBC % (auto) Smear Tech's Comments PT INR APTT Anion Gap Estim Creat Clear Calc Estimated GFR Random Glucose Lactic Acid Lactic Acid Fup @ 2Hr 1.9 Calcium Magnesium Ferritin Total Bilirubin Direct Bilirubin AST ALT Alkaline Phosphatase Lactate Dehydrogenase Troponin I High Sens B-Natriuretic Peptide Total Protein Albumin Urine Color Urine Appearance Urine pH Ur Specific Percy Urine Protein Urine Glucose (UA) Urine Ketones Urine Blood Urine Nitrite Ur Leukocyte Esterase Coronavirus (PCR) Influenza Type A (PCR) Influenza Type B (PCR) RSV RNA Qual (PCR) <Charo Gordon NP - Last Filed: 12/12/20 08:22> Imaging Radiologist's Impressions: Impressions Chest CT 12/11/20 09:46 IMPRESSION: Improving groundglass and semisolid opacities and increased interstitial markings from 11/25/2020 exam suggestive of improving pneumonia. Cervical Spine CT 12/11/20 09:47 IMPRESSION: 1. No acute bony abnormality or prevertebral soft tissue swelling. 2. Degenerative disc changes C5-C6. Scattered multilevel mild facet degeneration. Head CT 12/11/20 09:47 IMPRESSION: 1. No acute intracranial abnormality. 2. Resolution left cerebral convexity subdural hygroma since prior study 08/23/2020. Ankle X-Ray 12/11/20 10:18 IMPRESSION: No fracture or dislocation seen. <Charo Gordon NP - Last Filed: 12/12/20 08:22> Assessment and Plan (1) Aspiration pneumonia: Qualifiers: Aspiration pneumonia type: unspecified Laterality: right Lung location: unspecified part of lung Qualified Code(s): J69.0 - Pneumonitis due to inhalation of food and vomit <Charo Gordon NP - Last Filed: 12/12/20 08:22> Status: Acute <Charo Gordon NP - Last Filed: 12/12/20 08:22> 75 year old man admitted with acute hypoxic respiratory failure secondary to aspiration pneumonia. Likely from not following dysphagia diet. He presented with hypoxia and severe sepsis. Due to his age and comorbidities he is high risk for worsening respiratory failure. Will treat patient with IV antibiotics and refer to speech therapy. Severe sepsis. Fever, tachycardia, tachypnea, lactic acidosis. Zosyn, Follow blood cultures. Aspiration pneumonia. IV zosyn, speech and swallow evaluation Acute hypoxic respiratory failure. Resolved. Continue oxygen supplementation GERD. Continue PPI Parkinsons dementia. Continue Sinemet DVT prophylaxis with Heparin Discussed with Dr. Aaron Full code <Charo Gordon NP - Last Filed: 12/12/20 08:22>
[2020-12-11] MEDS: Heparin Sodium,Porcine 5,000 UNIT/ML VIAL 5000 UNIT SUBCUT (17:20)
[2020-12-11] MEDS: Carbidopa/Levodopa 25/100 TABLET 2 TAB PO ×2 (17:20→21:16)
--- NOTE | 2020-12-11 17:43 | PC.NURSE ---
Report given to ANT Brar. Pt ready for transport.
--- NOTE | 2020-12-11 17:59 | P.EN_ITS ---
Event Note Date of Service: 12/11/20 Event Note: Addendum to H and P by Mid-level Provider I saw and examined the patient and participated in the samayoa portion of the E/M service. I agree with the history and exam as documented by ASSISTANT DIRECTOR OF PLANT OPERATIONS. Patient has parkinson associated with dysphagia and is prone to aspiration. He will be admitted for aspiration pneumonia with severe sepsis but no organ dysfunction. Zosyn is good choice to good gram negative and anearobes. He needs close monitoring as he as risk for rapid detelirioation. Otherwise, I agree with assessment and plan as outlined in the H and P.
[2020-12-11] MEDS: Sucralfate 1 GM TABLET 0.5 GM PO (21:07)
[2020-12-11] MEDS: oxyCODONE HCl Immed Release 5 MG TABLET 7.5 MG PO (21:08)
[2020-12-11] MEDS: Mirtazapine 30 MG TABLET PO (21:09)
[2020-12-11] MEDS: DULoxetine HCl 20 MG CAPSULE.DR PO (21:09)
[2020-12-11] MEDS: Omeprazole 20 MG CAPSULE.DR PO (21:09)
[2020-12-11] MEDS: OXcarbazepine 150 MG TABLET PO (21:09)
[2020-12-11] MEDS: Finasteride 5 MG TABLET PO (21:10)
[2020-12-11] MEDS: 0.9 % Sodium Chloride Flush 3 ML SYRINGE IVFLUSH (22:53)
[2020-12-12 04:00] VITALS: BP 134/70; PULSE 66; RESP 18; TEMP 36.6; O2SAT 97
[2020-12-12] MEDS: Piperacillin Sodium/Tazobactam 3.375 GM in 0.9 % Sodium Chloride 50 ML IV ×4 (04:28→21:38)
[2020-12-12 04:58] LABS: MANUAL DIFF FLAG NO
[2020-12-12 05:03] LABS: Basophils Absolute Auto 0.1 X10*3/uL (0.0-0.2); Basophils Percent Auto 0.7 % (0-2); Eosinophils Absolute Auto 0.1 X10*3/uL (0.0-0.4); Eosinophils Percent Auto 1.7 % (0-4); Hemoglobin 11.7 g/dl (14.0-18.0); Imm Gran Abs Auto 0.03 X10*3/uL (0.00-0.03); Imm Gran Pct Auto 0.4 % (0.0-0.4); Mean Corpuscular HGB Conc 31.6 g/dl (31.0-36.0); Mean Corpuscular Hemoglobin 28.8 pg (27.0-33.0); Mean Corpuscular Volume 91.1 fL (80-98); Mean Platelet Volume 11.1 fL (9.4-12.4); Monocytes Absolute Auto 0.7 X10*3/uL (0.1-1.2); Neutrophils Absolute Auto 6.2 X10*3/uL (2.0-8.3); Neutrophils Percent Auto 76.2 % (45-73); Platelet Count 292 X10*3/uL (160-400); Red Blood Count 4.06 X10*6/uL (4.60-5.80); Red Cell Distribution Width 13.9 % (11.0-16.0); White Blood Count 8.1 X10*3/uL (4.8-10.8)
[2020-12-12 05:28] LABS: Anion Gap 12 (12-20); Blood Urea Nitrogen 14 mg/dL (9-16); Calcium 8.6 mg/dL (8.4-10.2); Carbon Dioxide 29 mmol/L (22-29); Chloride 103 mmol/L (96-108); Creatinine Clr Calc Pharmacy 59.4; Estimated Glomerular Filt Rate > 60; Glucose Random 109 mg/dL (60-115); Potassium 4.6 mmol/L (3.3-5.1); Sodium 139 mmol/L (135-145)
[2020-12-12] MEDS: Heparin Sodium,Porcine 5,000 UNIT/ML VIAL 5000 UNIT SUBCUT ×2 (05:37→15:59)
[2020-12-12] MEDS: Carbidopa/Levodopa 25/100 TABLET 2 TAB PO ×5 (05:38→21:51)
[2020-12-12 07:54] VITALS: BP 115/65; PULSE 71; RESP 18; TEMP 36.9; O2SAT 99
--- NOTE | 2020-12-12 08:17 | P.PNIM_ITS ---
Subjective Subjective Date of Service: 12/12/20 Interval History: Follow up aspiration pneumonia, feel good today, has some right shoulder pain Physical Exam Vital Signs: Vital Signs: Last Vital Signs Temp 98.5 F 12/12/20 07:54 Pulse 71 12/12/20 07:54 Resp 18 12/12/20 07:54 BP 115/65 12/12/20 07:54 Pulse Ox 99 12/12/20 07:54 Body Mass Index 17.4 Appearing in no acute distress head is normocephalic atraumatic mouth throat mucous membranes are intact and moist neck is supple no lymphadenopathy, no JVD noted lung sounds are clear to auscultation heart regular rate rhythm, clear S1, S2 positive bowel sounds, abdomen is soft, nontender neuro patient is alert oriented to person and place Objective Data Current Medications Generic Name Dose Route Start Last Admin Trade Name Freq PRN Reason Stop Dose Admin Acetaminophen 650 mg 12/11/20 16:12 Acetaminophen 325 Mg Tablet PO Q6H PRN Pain, Mild (Pain Scale 1-3) Albuterol Sulfate 2 puff 12/11/20 16:10 Albuterol Sulfate 90 Mcg 8 Gm Inhaler INHALE Q4H PRN dyspnea Carbidopa/Levodopa 2 tab 12/11/20 18:00 12/12/20 05:38 Carbidopa/Levodopa 25/100 Tablet PO 2 tab 5XD ELIAS Administration Docusate Sodium 100 mg 12/11/20 16:10 Docusate Sodium 100 Mg Capsule PO BID PRN Constipation Duloxetine HCl 20 mg 12/11/20 21:00 12/11/20 21:09 Duloxetine Hcl 20 Mg Capsule. PO 20 mg BID ELIAS Administration Ferrous Sulfate 324 mg 12/12/20 09:00 Ferrous Sulfate 324 Mg Tablet. PO DAILY ELIAS Finasteride 5 mg 12/11/20 21:00 12/11/20 21:10 Finasteride 5 Mg Tablet PO 5 mg BEDTIME ELIAS Administration Fluticasone Propionate 2 spray 12/12/20 09:00 Fluticasone Propionate Nasal 16 Gm [place] NOSTRIL-B DAILY ELIAS Folic Acid 1 mg 12/12/20 09:00 Folic Acid 1 Mg Tablet PO DAILY ELIAS Guaifenesin 5 ml 12/11/20 16:10 Guaifenesin 100 Mg/5 Ml Liquid PO Q4H PRN Cough Heparin Sodium (Porcine) 5,000 unit 12/11/20 17:00 12/12/20 05:37 Heparin Sodium,Porcine 5,000 Unit/Ml Vial SUBCUT 5,000 unit Q12H ELIAS Administration Piperacillin Sod/Tazobactam 50 mls @ 100 mls/hr 12/11/20 16:15 12/12/20 05:09 Sod 3.375 gm/ Sodium Chloride IV Infused Q6H ELIAS Infusion Loratadine 10 mg 12/12/20 09:00 Loratadine 10 Mg Tablet PO DAILY ELIAS Lorazepam 0.5 mg 12/11/20 16:10 Lorazepam 0.5 Mg Tablet PO DAILY PRN Anxiety Metoprolol Succinate 25 mg 12/12/20 09:00 Metoprolol Succinate Er 25 Mg Tab.Er.24h PO DAILY [facility] Protocol Mirabegron 50 mg 12/12/20 09:00 Mirabegron 50 Mg Tab.Er.24h PO DAILY [facility] Mirtazapine 30 mg 12/11/20 21:00 12/11/20 21:09 Mirtazapine 30 Mg Tablet PO 30 mg BEDTIME ELIAS Administration Omeprazole 20 mg 12/11/20 21:00 12/11/20 21:09 Omeprazole 20 Mg Capsule.Dr PO 20 mg BID [facility] Administration Ondansetron HCl 4 mg 12/11/20 16:12 Ondansetron Hcl 4 Mg/2 Ml Vial IVPUSH Q8H PRN Nausea and Vomiting Oxcarbazepine 150 mg 12/11/20 21:00 12/11/20 21:09 Oxcarbazepine 150 Mg Tablet PO 150 mg BID ELIAS Administration Oxycodone HCl 7.5 mg 12/11/20 21:00 12/11/20 21:08 Oxycodone Hcl Immed Release 5 Mg Tablet PO 7.5 mg BID [facility] Administration Pharmacy Consult 1 each 12/11/20 09:46 Consult Rx Perform Med Rec MISCELLANE ONCE PRN Consult order Polyethylene Glycol 17 gm 12/11/20 16:10 Polyethylene Glycol 3350 17 Gm Powd.Pack PO DAILY PRN Constipation Senna 8.6 mg 12/11/20 16:10 Sennosides 8.6 Mg Tablet PO BID PRN Constipation Sodium Chloride 3 ml 12/12/20 00:00 12/11/20 23:55 0.9 % Sodium Chloride Flush 3 Ml Syringe IVFLUSH Not Given QSHIFT ELIAS Sucralfate 0.5 gm 12/11/20 21:00 12/11/20 21:07 Sucralfate 1 Gm Tablet PO 0.5 gm TID [facility] Administration Vitamin D 50 mcg 12/12/20 09:00 Cholecalciferol (Vitamin D3) 25 Mcg Tablet PO DAILY [facility] Labs CBC & Chem 7: 12/12/20 04:12 12/12/20 04:12 Assessment and Plan (1) Aspiration pneumonia: Status: Acute Assessment and Plan: 75 year old man admitted with acute hypoxic respiratory failure secondary to aspiration pneumonia. Likely from not following dysphagia diet. He presented with hypoxia and severe sepsis. Due to his age and comorbidities he is high r isk for worsening respiratory failure. Will treat patient with IV antibiotics and refer to speech therapy. Aspiration pneumonia. -Continue IV zosyn -Speech therapy rec -Will need PT eval prior to discharge Severe sepsis. Resolved. Acute hypoxic respiratory failure. Resolved. -titrate oxygen down GERD. Continue PPI Parkinsons dementia. Continue Sinemet Protein calorie malnutrition. Encouraged oral intake. Add ensure to diet. Attending: Dr. Aaron
[2020-12-12] MEDS: Omeprazole 20 MG CAPSULE.DR PO ×2 (08:19→21:36)
[2020-12-12] MEDS: Folic Acid 1 MG TABLET PO (08:19)
[2020-12-12] MEDS: DULoxetine HCl 20 MG CAPSULE.DR PO ×2 (08:19→21:35)
[2020-12-12] MEDS: Loratadine 10 MG TABLET PO (08:19)
[2020-12-12] MEDS: Cholecalciferol (Vitamin D3) 25 MCG TABLET 50 MCG PO (08:19)
[2020-12-12] MEDS: Ferrous Sulfate 324 MG TABLET.DR PO (08:19)
[2020-12-12] MEDS: Mirabegron 50 MG TAB.ER.24H PO (08:19)
[2020-12-12] MEDS: Sucralfate 1 GM TABLET 0.5 GM PO ×3 (08:19→21:34)
[2020-12-12] MEDS: OXcarbazepine 150 MG TABLET PO ×2 (08:20→21:36)
[2020-12-12] MEDS: Metoprolol Succinate ER 25 MG TAB.ER.24H PO (08:20)
[2020-12-12] MEDS: 0.9 % Sodium Chloride Flush 3 ML SYRINGE IVFLUSH ×3 (08:20→23:38)
[2020-12-12] MEDS: oxyCODONE HCl Immed Release 5 MG TABLET 7.5 MG PO ×2 (08:20→21:35)
--- NOTE | 2020-12-12 08:54 | MHC.CM.PN ---
CM met with Patient at bedside and addressed IMM, providing Patient with original and placing a copy in the chart. Patient lives in a house with his and Adult Daughter and he uses a walker and W/C to assist with mobility. 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 Patient's goal for dc is to return home; he may benefit from a PT eval.CM has initiated and will follow for dc planning. PCP is Dr. Kimberly Jha.Patient did not use O2 @ home.
--- NOTE | 2020-12-12 10:47 | PM.EVENT ---
Event Note Date of Service: 12/12/20 Event Note: I saw and examined the patient in conjuction with PRINTING AND STAMPING SUPERVISOR. Patient feels a bit better this morning, Normal temp, no sob. Speech recommend puree diet Vitals reviewed and are stable. He is chectic frail and malnurished. [place] lung expansion, and no respi distress, Neuro intakc, minmal tremores. Lab reviewd WBC has come down to normal. A/P: as documented by PRINTING AND STAMPING SUPERVISOR, Aspiration pna with sepsis now resolved, additioanally has moderate protein caloary malnutrion with cachexia and should be consider for supplement. Ad discharge should be assess for rehab. O/w I agree with assessment and plan as written by PRINTING AND STAMPING SUPERVISOR.,
[2020-12-12 11:31] VITALS: BP 103/58; PULSE 70; RESP 17; TEMP 36.5; O2SAT 97
[2020-12-12 11:39] VITALS: BMI 17.4
--- NOTE | 2020-12-12 11:43 | MHC.CLN ---
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
[2020-12-12] MEDS: Acetaminophen 325 MG TABLET 650 MG PO (14:42)
[2020-12-12 15:23] VITALS: BP 114/63; PULSE 69; RESP 20; TEMP 36.5; O2SAT 95
[2020-12-12 19:34] VITALS: BP 135/76; PULSE 86; RESP 19; TEMP 36.6; O2SAT 97
[2020-12-12] MEDS: Mirtazapine 30 MG TABLET PO (21:37)
[2020-12-12] MEDS: Finasteride 5 MG TABLET PO (21:51)
[2020-12-12 23:36] VITALS: BP 121/76; PULSE 69; RESP 18; TEMP 36.6; O2SAT 99
[2020-12-13 03:29] VITALS: BP 136/71; PULSE 69; RESP 18; TEMP 37; O2SAT 97
[2020-12-13] MEDS: Piperacillin Sodium/Tazobactam 3.375 GM in 0.9 % Sodium Chloride 50 ML IV ×2 (03:29→10:00)
[2020-12-13] MEDS: Carbidopa/Levodopa 25/100 TABLET 2 TAB PO ×2 (05:21→10:00)
[2020-12-13] MEDS: Heparin Sodium,Porcine 5,000 UNIT/ML VIAL 5000 UNIT SUBCUT (05:21)
[2020-12-13 07:31] VITALS: BP 119/71; PULSE 66; RESP 16; TEMP 36.4; O2SAT 95
[2020-12-13] MEDS: DULoxetine HCl 20 MG CAPSULE.DR PO (08:50)
[2020-12-13] MEDS: oxyCODONE HCl Immed Release 5 MG TABLET 7.5 MG PO (08:50)
[2020-12-13] MEDS: Ferrous Sulfate 324 MG TABLET.DR PO (08:50)
[2020-12-13] MEDS: Cholecalciferol (Vitamin D3) 25 MCG TABLET 50 MCG PO (08:50)
[2020-12-13] MEDS: Metoprolol Succinate ER 25 MG TAB.ER.24H PO (08:50)
[2020-12-13] MEDS: Omeprazole 20 MG CAPSULE.DR PO (08:50)
[2020-12-13] MEDS: Fluticasone Propionate Nasal 16 GM SPRAY 2 SPRAY NOSTRIL-B (08:51)
[2020-12-13] MEDS: 0.9 % Sodium Chloride Flush 3 ML SYRINGE IVFLUSH (08:51)
[2020-12-13] MEDS: Folic Acid 1 MG TABLET PO (08:51)
[2020-12-13] MEDS: Sucralfate 1 GM TABLET 0.5 GM PO (08:51)
[2020-12-13] MEDS: OXcarbazepine 150 MG TABLET PO (08:51)
[2020-12-13] MEDS: Loratadine 10 MG TABLET PO (08:51)
[2020-12-13] MEDS: Mirabegron 50 MG TAB.ER.24H PO (08:51)
--- NOTE | 2020-12-13 11:06 | PM.DS ---
DS: Providers Provider Date of Service: 12/13/20 Date of admission: 12/11/20 16:12 Primary care physician: Kimberly Jha MD DS: Diagnosis Discharge Diagnosis (1) Aspiration pneumonia: Status: Acute DS: Medications Discharge Medications Home Medications: Home Medications Medication Instructions Recorded Confirmed Myrbetriq 50 mg PO DAILY 08/23/20 12/11/20 albuterol sulfate 2 puff PO Q4H PRN 08/23/20 12/11/20 carbidopa-levodopa 2 tab PO 5XD 08/23/20 12/11/20 cholecalciferol (vitamin D3) 50 mcg PO DAILY 08/23/20 12/11/20 [Vitamin D3] docusate sodium 100 mg PO BID PRN 08/23/20 12/11/20 duloxetine 20 mg PO BID 08/23/20 12/11/20 ferrous gluconate 324 mg PO DAILY 08/23/20 12/11/20 finasteride 5 mg PO BEDTIME 08/23/20 12/11/20 fluticasone propionate 2 spray INTRANASAL QAM 08/23/20 12/11/20 folic acid 1 mg PO DAILY 08/23/20 12/11/20 lorazepam 0.5 mg PO DAILY PRN 08/23/20 12/11/20 metoprolol succinate 25 mg PO DAILY 08/23/20 12/11/20 mirtazapine 30 mg PO BEDTIME 08/23/20 12/11/20 omeprazole 20 mg PO BID 08/23/20 12/11/20 ondansetron HCl [Zofran] 4 mg PO Q6H PRN 08/23/20 12/11/20 oxcarbazepine 150 mg PO BID 08/23/20 12/11/20 oxycodone 7.5 mg PO BID 08/23/20 12/11/20 polyethylene glycol 3350 [Miralax] 17 g PO DAILY PRN 08/23/20 12/11/20 sennosides [Senna Lax] 8.6 mg PO BID PRN 08/23/20 12/11/20 sucralfate 0.5 g PO TID 08/23/20 12/11/20 cetirizine 10 mg PO DAILY 12/11/20 12/11/20 guaifenesin 300 mg PO Q4H PRN 12/11/20 12/11/20 ketoconazole 1 appl TOPICAL 2XW PRN 12/11/20 12/11/20 lidocaine 1 appl TOPICAL BID PRN 12/11/20 12/11/20 meloxicam 7.5 mg PO DAILY PRN 12/11/20 12/11/20 vitamin B complex 2 cap PO DAILY 12/11/20 12/11/20 DS: Summary Hospital Course Hospital Course: 75 year old man presenting with cough and shortness of breath. He has had a cough, fever and shortness of breath after eating solid food. He had a recent admission for aspiration pneumonia on Zosyn and completed doxycycline and augmentin. It was recommended that the patient have a pureed diet with honey thick liquids. it appears that he has not been following that diet. He was noted to have a fever of 102.4, heart rate 108, respiratory rate 24, Saturation of 85%. He received a dose of zosyn, vancomycin, IV fluids, Tylenol. he will be admitted for severe sepsis related to aspiration pneumonia. Aspiration pneumonia. Patient was initially treated with IV zosyn. He was able to be weaned off of oxygen and has been saturating in the mid 90s since 12/12 and he has been afebrile since the day of admission. He was re - evaluated by Speech who recommended to continue with pureed diet with honey thickened liquids. He will be transitioned to PO Augmentin on discharge for 4 more days. Patient is eager to return home and would not want to go to SNF. He was evaluated by PT who recommended home with PT. Severe sepsis. present on admission. Resolved with treatment of aspiration pneumonia Acute hypoxic respiratory failure. R/t PNA. Resolved. All home medications were continued while in the hospital. Status at Discharge Functional status at discharge: uses cane/walker Time Spent with Patient Time attestation: Total time spent providing and/or coordinating discharge services: Discharge coordination time: Greater than 30 minutes Physical Exam Vital Signs: Vital Signs: Last Vital Signs Temp 97.5 F 12/13/20 07:31 Pulse 66 12/13/20 07:31 Resp 16 12/13/20 07:31 BP 119/71 12/13/20 07:31 Pulse Ox 95 12/13/20 07:31 Body Mass Index 17.4 Const: General: cooperative, comfortable, no acute distress, alert and awake Nutritional Appearance: cachectic Orientation/consciousness: patient oriented x3 HENMT: Head: Yes normocephalic and Yes atraumatic Eyes: Sclerae: sclerae normal Chest: Chest palpation & inspection: normal inspection of the chest Resp: Effort & Inspection: normal respiratory effort and no respiratory distress GI: Palpation (GI): Soft to palpation and nontender Skin: General skin exam: no rashes or lesions noted Neuro: General: patient oriented x3 Cranial nerves: Yes CN's II-XII intact bilaterally and Yes Bilaterally intact EOM present Extrem: General: Yes normal to inspection DS: Data Data Completed and Pending Labs on day of discharge: Preliminary micro results at discharge 12/11/20 10:05 Blood Culture - Preliminary Blood - Venous No growth after 24 hours. 12/11/20 10:08 Blood Culture - Preliminary Blood - Venous No growth after 24 hours. Discharge Plan Discharge Patient Disposition: Home Health Service Referrals: [facility] [Outside] Kimberly Jha MD [Primary Care Provider] - 1 Week (Please call and make a follow up appointment.) Discharge Medications: New amoxicillin-pot clavulanate [Augmentin] 875-125 mg tablet 1 tab PO Q12H 4 Days Qty: 8 RF: 0 Continued fluticasone propionate 50 mcg/actuation spray,suspension 2 spray intranasal QAM RF: 0 albuterol sulfate 90 mcg/actuation HFA aerosol inhaler 2 puff PO Q4H PRN (Reason: dyspnea) RF: 0 oxcarbazepine 150 mg Tablet 150 mg PO BID RF: 0 sennosides [Senna Lax] 8.6 mg Tablet 8.6 mg PO BID PRN (Reason: Constipation) RF: 0 sucralfate 1 gram Tablet 0.5 g PO TID RF: 0 ondansetron HCl [Zofran] 4 mg Tablet 4 mg PO Q6H PRN (Reason: Nausea) RF: 0 lorazepam 0.5 mg Tablet 0.5 mg PO DAILY PRN (Reason: Anxiety) RF: 0 mirtazapine 30 mg Tablet 30 mg PO BEDTIME RF: 0 omeprazole 20 mg Capsule,Delayed Release(Dr/Ec) 20 mg PO BID RF: 0 folic acid 1 mg Tablet 1 mg PO DAILY RF: 0 metoprolol succinate 25 mg Tablet Extended Release 24 Hr 25 mg PO DAILY RF: 0 docusate sodium 100 mg Tablet 100 mg PO BID PRN (Reason: Constipation) RF: 0 finasteride 5 mg Tablet 5 mg PO BEDTIME RF: 0 carbidopa-levodopa 25-100 mg Tablet,Disintegrating 2 tab PO 5XD RF: 0 ferrous gluconate 324 mg (38 mg iron) Tablet 324 mg PO DAILY RF: 0 cholecalciferol (vitamin D3) [Vitamin D3] 50 mcg (2,000 unit) Capsule 50 mcg PO DAILY RF: 0 oxycodone 7.5 mg Tablet, Oral Only 7.5 mg PO BID RF: 0 Myrbetriq 50 mg Tablet Extended Release 24 Hr 50 mg PO DAILY RF: 0 polyethylene glycol 3350 [Miralax] 17 gram/dose Powder 17 g PO DAILY PRN (Reason: Constipation) RF: 0 duloxetine 20 mg Capsule,Delayed Release(Dr/Ec) 20 mg PO BID RF: 0 cetirizine 10 mg Tablet 10 mg PO DAILY RF: 0 meloxicam 7.5 mg Tablet 7.5 mg PO DAILY PRN (Reason: Pain) RF: 0 vitamin B complex Capsule 2 cap PO DAILY RF: 0 guaifenesin 100 mg/5 mL Liquid 300 mg PO Q4H PRN (Reason: COUGH) RF: 0 ketoconazole 2 % Shampoo 1 appl TOPICAL 2XW PRN (Reason: RASH) RF: 0 lidocaine 4 % Cream 1 appl TOPICAL BID PRN (Reason: Pain) RF: 0 Discharge Orders: Discharge Order (Routine); Ordered 12/13/20 Ordered By: Estefanía Gtz Diet: other Activity on Discharge: As tolerated Stand Alone Forms: Patient Portal Discharge page Care Plan Goals: Stay healthy and out of the hospital Health Concerns: Recurrent aspiration Plan of Treatment: Follow recommended pureed diet with thickened liquids and aspiration precautions as below Patient Instructions: Aspiration Precautions (GEN)
[2020-12-13 11:16] VITALS: BP 110/63; PULSE 68; RESP 18; TEMP 36.6; O2SAT 94
--- NOTE | 2020-12-13 11:26 | MHC.CM.PN ---
Per MD conversation, Patient will be medically cleared for dc to home today, with [facility]. Patient has had [facility] in the past and is agreeable to a referral there again. [facility] has been informed of today's dc. Last IMM addressed yesterday; Patient is very eager to return home. [facility] spoke with /Elle @ [phone], who will pick Patient up today at 2:30 PM.RN & MD are aware.
--- NOTE | 2020-12-13 11:40 | MHC.SLORD ---
Patient is currently on his baseline diet PUREED (NDD1) solids and HONEY THICK liquids. Per RN, patient is tolerating these consistencies. COUNTY AGRICULTURAL AGENT continues to recommend MBSS during inpatient stay or at next level of care due to history of recurrent aspiration pneumonia and dysphagia. Per RN, patient is hesitant to participate in study. Name: Jayden Gore Date of : 1945 Age: 75 Date of Registration: 12/11/20 Speech Language Pathology Order Status:
== END 2020-12-13 14:41 | disposition home health service (06) | DRG 871 ==
LOC: HO.ED 12:49 → HO.EDOVER 16:21 → HO.IMC 16:39
PROVIDERS: Nurse Practitioner Acute Care; Admitting Provider Internal Medicine; Emergency Provider Emergency Medicine; PCP Internal Medicine; Visit Provider Internal Medicine
DX: A41.9 Sepsis, unspecified organism (principal); J69.0 Pneumonitis due to inhalation of food and vomit; J96.01 Acute respiratory failure with hypoxia; E44.0 Moderate protein-calorie malnutrition; Z68.1 Body mass index [BMI] 19.9 or less, adult; G20 Parkinson's disease; F02.80 Dementia in other diseases classified elsewhere, unspecified severity, without behavioral disturbance, psychotic disturbance, mood disturbance, and anxiety; R65.20 Severe sepsis without septic shock; K21.9 Gastro-esophageal reflux disease without esophagitis; Z20.822 Contact with and (suspected) exposure to COVID-19; Z88.6 Allergy status to analgesic agent; Z79.1 Long term (current) use of non-steroidal anti-inflammatories (NSAID); Z79.52 Long term (current) use of systemic steroids; Z79.899 Other long term (current) drug therapy
CPT/HCPCS: 0241U; 11104; 36415; 70450; 71250; 72125; 73610; 80048; 80076; 81003; 82728; 83605; 83615; 83735; 83880; 84484; 85025; 85610; 85730; 87040; 92610; 93005; 96361; 96365; 96367; 97161; 99285; J2543; J3370

== ENCOUNTER 2021-03-18 13:14 | Emergency (ER) | payer OTHER, MEDICARE, SELFPAY ==
--- NOTE | ~2021-03-18 | CT_ITS ---
EXAMINATION: CT CHEST WITHOUT CONTRAST CLINICAL INFORMATION: Fever, cough, rule out pneumonia. COMPARISON: Chest x-ray 03/18/2021. Chest CT 12/11/2020. TECHNIQUE: Multidetector volumetric CT imaging of the chest was done. Axial MIP volume rendering provided. Sagittal and coronal reformatted images were obtained. This CT examination was performed using dose optimization techniques as appropriate, variously including the following: *Automated exposure control. *Adjustment of mA and/or kV according to patient size (this includes techniques or standardized protocols for targeted exams where dose is matched to indication/reason for exam; i.e. extremities or head). *Use of iterative reconstruction technique. DLP: 188 mGy-cm FINDINGS: LUNGS: Multifocal ground-glass opacities, increased interstitial prominence with reticular nodular opacifications in bilateral lungs, more prominent in the right middle lobe, bilateral lower lobes, left greater than right. The previously noted more confluent areas of opacities have improved as compared to previous. There are patchy airspace opacities in bilateral lower lobes. Mild paraseptal emphysema. MEDIASTINUM: Shotty mediastinal lymph nodes, larger 1.1 cm precarinal lymph node, stable from previous. The heart is not enlarged. Ascending aorta measures 3.9 cm, similar to previous. No pericardial effusion. Mild coronary calcification. PLEURA: There is no pleural effusion. No pleural mass or thickening. AXILLA: No axillary lymphadenopathy. UPPER ABDOMEN: Postsurgical changes at the GE junction. Right renal 2.1 cm cyst. OSSEOUS STRUCTURES: Mild L1 vertebral body compression fracture, appearing similar to previous. Redemonstrated are healing bilateral lower rib fractures. CT/CT chest wo con IMPRESSION: 1. Interval improvement of the more confluent ground-glass and semisolid opacities in bilateral hemithoraces, with persistent ground-glass opacities, reticular nodular opacities in bilateral lungs, more prominent in the [id number]-ul-[id number] lungs. Findings suggest improving but persistent inflammatory or infectious process. Recommend ongoing follow up to resolution. 2. Shotty mediastinal lymph nodes, similar to previous. 3. Ascending aorta measures 2.9 cm. 4. Stable appearance of L1 vertebral body compression fracture.
--- NOTE | ~2021-03-18 | XR_ITS ---
EXAMINATION: XR CHEST CLINICAL INFORMATION: Cough. Evaluate for pneumonia. COMPARISON: Previous chest x-ray most recent November [address] December 2020 TECHNIQUE: 2 views of the chest were obtained. FINDINGS: Lateral view is limited due to patient rotation. The cardiac and mediastinal contours are stable. The lungs are well inflated suggestive of COPD. There may be subsegmental atelectasis at the left lung base. The lungs are otherwise clear without evidence of a pneumonia. There is no pleural effusion or pneumothorax. There are degenerative changes of the spine. XR/XR chest 2V IMPRESSION: Well-inflated lungs suggestive of COPD. Subsegmental atelectasis at the left lung base. No definite pneumonia is seen.
[2021-03-18 13:41] VITALS: BP 148/85; PULSE 86; RESP 21; TEMP 37; O2SAT 95; BMI 14.3
--- NOTE | 2021-03-18 13:53 | ECG_ITS ---
Test Reason : DYSPNEA Blood Pressure : / mmHG Vent. Rate : 077 BPM Atrial Rate : 077 BPM P-R Int : 170 ms QRS Dur : 086 ms QT Int : 384 ms P-R-T Axes : 081 -13 024 degrees QTc Int : 434 ms Normal sinus rhythm Normal ECG When compared with ECG of 11-DEC-2020 10:07, Nonspecific T wave abnormality now evident in Inferior leads Referred By: Janet Richardson Electronically Signed By:MARISSA DUARTE MD
--- NOTE | 2021-03-18 14:18 | ED.GENADULT ---
HPI - General Adult General Chief complaint: Dyspnea Stated complaint: FEVER RUNNING NOSE DIFF BREATHING Time Seen by Provider: 03/18/21 13:46 Source: patient and family Mode of arrival: wheelchair Limitations: no limitations History of Present Illness HPI narrative: 75-year-old male with a past medical history of BPH, COPD, dysphagia with recurrent aspiration pneumonia, GERD, hypertension, Parkinson's disease here with complaints of abnormal vital signs noted at the doctor's office. Per patient he has had a mild cough, rhinorrhea and generalized weakness for the last 2-3 days. He went to his doctor's office for follow-up visit as he was recently treated for thrush with oral Diflucan and while he was there he was noted to have a oral temperature of 99.5 degrees and the provider was concerned that his lungs sounded abnormal and he was sent here for further evaluation. Also has had some nausea/vomiting. No AP/diarrhea. Related Data Home Medications Medication Instructions Recorded Confirmed Myrbetriq 50 mg PO DAILY 08/23/20 12/11/20 albuterol sulfate 2 puff PO Q4H PRN 08/23/20 12/11/20 carbidopa-levodopa 2 tab PO 5XD 08/23/20 12/11/20 cholecalciferol (vitamin D3) 50 mcg PO DAILY 08/23/20 12/11/20 [Vitamin D3] docusate sodium 100 mg PO BID PRN 08/23/20 12/11/20 duloxetine 20 mg PO BID 08/23/20 12/11/20 ferrous gluconate 324 mg PO DAILY 08/23/20 12/11/20 finasteride 5 mg PO BEDTIME 08/23/20 12/11/20 fluticasone propionate 2 spray INTRANASAL QAM 08/23/20 12/11/20 folic acid 1 mg PO DAILY 08/23/20 12/11/20 lorazepam 0.5 mg PO DAILY PRN 08/23/20 12/11/20 metoprolol succinate 25 mg PO DAILY 08/23/20 12/11/20 mirtazapine 30 mg PO BEDTIME 08/23/20 12/11/20 omeprazole 20 mg PO BID 08/23/20 12/11/20 ondansetron HCl [Zofran] 4 mg PO Q6H PRN 08/23/20 12/11/20 oxcarbazepine 150 mg PO BID 08/23/20 12/11/20 oxycodone 7.5 mg PO BID 08/23/20 12/11/20 polyethylene glycol 3350 [Miralax] 17 g PO DAILY PRN 08/23/20 12/11/20 sennosides [Senna Lax] 8.6 mg PO BID PRN 08/23/20 12/11/20 sucralfate 0.5 g PO TID 08/23/20 12/11/20 cetirizine 10 mg PO DAILY 12/11/20 12/11/20 guaifenesin 300 mg PO Q4H PRN 12/11/20 12/11/20 ketoconazole 1 appl TOPICAL 2XW PRN 12/11/20 12/11/20 lidocaine 1 appl TOPICAL BID PRN 12/11/20 12/11/20 meloxicam 7.5 mg PO DAILY PRN 12/11/20 12/11/20 vitamin B complex 2 cap PO DAILY 12/11/20 12/11/20 Previous Rx's Medication Instructions Recorded amoxicillin-pot clavulanate 1 tab PO Q12H 4 Days #8 tab 12/13/20 [Augmentin] amoxicillin-pot clavulanate 1 tab PO Q12H #14 tab 03/18/21 [Augmentin] Allergies Allergy/AdvReac Type Severity Reaction Status Date / Time aspirin [ASA] Allergy Unknown UNKNOWN Verified 08/23/20 16:16 Review of Systems Review of Systems: Yes all other systems are reviewed and are negative Constitutional: Constitutional: Reports no additional constitutional complaints, Denies body ache(s), Denies chills, Reports fever(s) (low grade temp), Denies headache(s) and Reports weakness Eyes: Eyes: Reports no additional eye complaints and Denies change in vision ENT: Reports system reviewed and no additional complaints, except as documented, Denies dizziness, Denies headache(s), Denies nasal congestion, Denies nasal discharge and Denies neck pain Comments: rhinorrhea Cardiovascular: Cardiovascular: Reports no additional cardiovascular complaints, Denies chest pain, Denies leg edema and Denies dyspnea Respiratory: Respiratory: Reports no additional respiratory complaints, Reports cough and Denies dyspnea Gastrointestinal: Gastrointestinal: Reports no additional gastrointestinal complaints, Denies abdominal pain, Denies diarrhea, Reports nausea and Reports vomiting Genitourinary: Genitourinary: Denies urinary incontinence Musculoskeletal: Musculoskeletal: Reports no additional musculoskeletal complaints, Denies back pain, Denies arthralgias, Denies joint swelling, Denies neck pain, Denies numbness and Denies tingling Integumentary/Breasts: Skin/Breast: Reports system reviewed and no additional complaints, except as docu and Denies rash Neurologic: Denies Abnormal speech present, Denies dizziness, Denies headache(s), Denies numbness, Denies tingling and Reports weakness PMFSH Past Medical History Attestation statement: The following information was validated with the patient. Source: old records reviewed and nursing notes reviewed Medical History BPH (benign prostatic hyperplasia) Constipation COPD (chronic obstructive pulmonary disease) Dysphagia Elevated lactic acid level GERD (gastroesophageal reflux disease) Hypertension Hypoxia Leukocytosis Parkinson disease PUD (peptic ulcer disease) Surgical History S/P gastric surgery Family History Family History Other Bladder cancer Diabetes Social History Social History Household Members: Spouse Housing: House Do you presently have visiting nurse or other home services: Yes Alcohol intake: never service: Yes Current occupational status: retired Physical Exam Vital Signs: Vital Signs: Last Vital Signs Temp 98.6 F 03/18/21 13:41 Pulse 86 03/18/21 13:41 Resp 21 H 03/18/21 13:41 BP 148/85 H 03/18/21 13:41 Pulse Ox 94 03/18/21 18:50 Body Mass Index 14.3 Const: General: cooperative, healthy appearing, comfortable and no acute distress Orientation/consciousness: patient oriented x3 Limitations: no limitations HENMT: Head: Yes normal to inspection Ears: hearing grossly normal bilaterally General nose exam: Normal external nose present Face and sinus: Yes normal facial exam Mouth: Normal oral and palatal mucosa present Throat: Yes posterior oropharynx normal Eyes: General: appearance normal, both eyes and all related structures Pupils: Equal, round and reactive pupils present Neck: Neck: Yes normal visual inspection Chest: Chest palpation & inspection: normal inspection of the chest Resp: Other: Coarse breath sounds on the left side Effort & Inspection: normal respiratory effort Auscultation: clear to auscultation bilaterally Cardio: Rate: regular rate Rhythm: regular rhythm Peripheral pulses: Peripheral pulses 2+ throughout GI: Inspection: Yes normal to inspection Palpation (GI): Soft to palpation and nontender Auscultation: normal bowel sounds Back/Spine/Pelvis: Thoracic/Lumbar Spine: thoracic and lumbar spine normal to inspection Skin: General skin exam: no rashes or lesions noted Neuro: General: patient oriented x3, no focal motor deficits and normal sensation to monofilament Cranial nerves: Yes Equal, round and reactive pupils present Cognition (Neuro): normal cognition Speech: No Abnormal speech present Gait exam (Neuro): Normal gait present Motor exam (neuro): 5/5 motor strength present throughout Extrem: General: Yes normal to inspection, Yes no pedal edema and Yes no calf tenderness Course Course Course Narrative: 75-year-old male here with complaints of generalized weakness, rhinorrhea, cough, low-grade temp for the last few days. Also some intermittent nausea and vomiting which seems to be going on for little bit longer. On exam afebrile. Stable saturations, appears well. Does have some coarse breath sounds left side. Will check labs, chest x-ray, EKG, UA. 1550-labs show a mild leukopenia. UA shows 5-9 wbc's but no nitrates. Question contamination. Urine culture pending. Chest x-ray shows COPD with some atelectasis at the left lung base. Due to history of aspiration pneumonia with complaints of cough with coarse breath sounds will check CT chest eval further for pneumonia. 1830-CT chest Interval improvement of the more confluent ground-glass and semisolid opacities in bilateral hemithoraces, with persistent ground-glass opacities, reticular nodular opacities in bilateral lungs, more prominent in the [id number] lungs. Findings suggest improving but persistent inflammatory or infectious process. Recommend ongoing follow up to resolution. Patient has no tachypnea. He was ambulated by nursing with a walker with pulse oximeter saturation of 95%. He would like to be discharged home and does not want to stay in the hospital. His caregiver is at the bedside and agrees. He tells me that he is sick of being admitted to the hospital. He tells me that it is most important for him to be at home unless admission absolutely necessary. His vital signs are stable. His labs are unremarkable with the exception of a mild leukopenia. He tolerated 2 cups of broth, kyle namita and Apple juice while he was here in the emergency department. Discussed with Dr. Elder attending physician who agrees patient can be discharged home. Will discharge home with course of Augmentin. Reviewed worrisome signs and symptoms such as shortness of breath, fever greater than 100.4, chest pain, worsening weakness. Comfortable with discharge home. Medical Decision Making MDM Narrative Medical decision making narrative: Aspiration pneumonia, viral syndrome, UTI Medical Records Medical records reviewed: Yes I reviewed the patient's medical records. Lab Data Lab results reviewed: Yes I reviewed the patient's lab results. Result diagrams: 03/18/21 14:27 03/18/21 15:02 Labs: Lab Results 03/18/21 03/18/21 03/18/21 Range/Units 14:27 14:27 14:27 WBC 4.5 L (4.8-10.8) X10*3/uL RBC 4.22 L (4.60-5.80) X10*6/uL Hgb 12.2 L (14.0-18.0) g/dl Hct 38.0 L (42-52) % MCV 90.0 (80-98) fL MCH 28.9 (27.0-33.0) pg MCHC 32.1 (31.0-36.0) g/dl RDW 13.6 (11.0-16.0) % Plt Count 279 (160-400) X10*3/uL MPV 10.6 (9.4-12.4) fL Immature Gran % (Auto) 0.4 (0.0-0.4) % Neut % (Auto) 74.3 H (45-73) % Lymph % (Auto) 15.2 L (20-40) % Toole % (Auto) 7.6 (2-11) % Eos % (Auto) 0.9 (0-4) % Baso % (Auto) 1.6 (0-2) % Lymph # (Auto) 0.7 L (1.2-4.9) X10*3/uL Toole # (Auto) 0.3 (0.1-1.2) X10*3/uL Eos # (Auto) 0.0 (0.0-0.4) X10*3/uL Baso # (Auto) 0.1 (0.0-0.2) X10*3/uL Abs Immat Gran (auto) 0.02 (0.00-0.03) X10*3/uL Absolute Neuts (auto) 3.3 (2.0-8.3) X10*3/uL Absolute Nucleated RBC 0.000 (0.0-0.012) X10*3/uL Nucleated RBC % (auto) 0.0 (0.0-0.2) /100WBC Smear Tech's Comments VERIFIED PT 12.4 (10.8-13.0) SEC INR 1.0 (0.9-1.1) Sodium (135-145) mmol/L Potassium (3.3-5.1) mmol/L Chloride (96-108) mmol/L Carbon Dioxide (22-29) mmol/L Anion Gap (12-20) BUN (9-16) mg/dL Creatinine (0.5-1.4) mg/dL Estim Creat Clear Calc Estimated GFR Random Glucose (60-115) mg/dL Lactic Acid 0.9 (0.5-2.0) mmol/L Calcium (8.4-10.2) mg/dL Magnesium (1.6-2.6) mg/dL Total Bilirubin (0.0-1.0) mg/dL Direct Bilirubin (0.0-0.5) mg/dL AST (5-37) U/L ALT (0-40) U/L Alkaline Phosphatase (39-117) U/L Troponin I High Sens (<3.5-35.0) ng/L Total Protein (6.5-8.0) g/dL Albumin (3.5-5.0) g/dL Urine Color Urine Appearance Urine pH (5.0-8.0) Ur Specific Benson (1.005-1.025) Urine Protein (NEG-TRACE) MG/DL Urine Glucose (UA) (NEG) MG/DL Urine Ketones (NEG) MG/DL Urine Blood (NEG) Urine Nitrite (NEG) Ur Leukocyte Esterase (NEG) Urine RBC (0) /HPF Urine WBC (0-4) /HPF Ur Squamous Epith Cells /LPF Amorphous Sediment /LPF Urine Bacteria /LPF 03/18/21 03/18/21 03/18/21 Range/Units 14:27 14:27 15:02 WBC (4.8-10.8) X10*3/uL RBC (4.60-5.80) X10*6/uL Hgb (14.0-18.0) g/dl Hct (42-52) % MCV (80-98) fL MCH (27.0-33.0) pg MCHC (31.0-36.0) g/dl RDW (11.0-16.0) % Plt Count (160-400) X10*3/uL MPV (9.4-12.4) fL Immature Gran % (Auto) (0.0-0.4) % Neut % (Auto) (45-73) % Lymph % (Auto) (20-40) % Toole % (Auto) (2-11) % Eos % (Auto) (0-4) % Baso % (Auto) (0-2) % Lymph # (Auto) (1.2-4.9) X10*3/uL Toole # (Auto) (0.1-1.2) X10*3/uL Eos # (Auto) (0.0-0.4) X10*3/uL Baso # (Auto) (0.0-0.2) X10*3/uL Abs Immat Gran (auto) (0.00-0.03) X10*3/uL Absolute Neuts (auto) (2.0-8.3) X10*3/uL Absolute Nucleated RBC (0.0-0.012) X10*3/uL Nucleated RBC % (auto) (0.0-0.2) /100WBC Smear Tech's Comments PT (10.8-13.0) SEC INR (0.9-1.1) Sodium 140 (135-145) mmol/L Potassium 4.0 (3.3-5.1) mmol/L Chloride 103 (96-108) mmol/L Carbon Dioxide 32 H (22-29) mmol/L Anion Gap 9 L (12-20) BUN 16 (9-16) mg/dL Creatinine 1.02 (0.5-1.4) mg/dL Estim Creat Clear Calc 37.7 Estimated GFR > 60 Random Glucose 137 H (60-115) mg/dL Lactic Acid (0.5-2.0) mmol/L Calcium 9.1 (8.4-10.2) mg/dL Magnesium 1.9 (1.6-2.6) mg/dL Total Bilirubin 0.5 (0.0-1.0) mg/dL Direct Bilirubin 0.2 (0.0-0.5) mg/dL AST 10 (5-37) U/L ALT < 6 (0-40) U/L Alkaline Phosphatase 115 D (39-117) U/L Troponin I High Sens < 3.5 (<3.5-35.0) ng/L Total Protein 6.3 L (6.5-8.0) g/dL Albumin 3.6 (3.5-5.0) g/dL Urine Color YELLOW Urine Appearance HAZY Urine pH 7.0 (5.0-8.0) Ur Specific Benson 1.010 (1.005-1.025) Urine Protein 1+ H (NEG-TRACE) MG/DL Urine Glucose (UA) NEG (NEG) MG/DL Urine Ketones 15 (NEG) MG/DL Urine Blood NEG (NEG) Urine Nitrite NEG (NEG) Ur Leukocyte Esterase NEG (NEG) Urine RBC 1-4 (0) /HPF Urine WBC 5-9 H (0-4) /HPF Ur Squamous Epith Cells TRACE /LPF Amorphous Sediment 2+ /LPF Urine Bacteria 1+ /LPF Imaging Data Chest x-ray: Attestation: I personally reviewed and interpreted this imaging study as follows: Radiologist's impression: [address] [id number] ReportSigned Patient: Jayden Gore JMR#: [id number]: 4Acct:[id number]/Sex: 75 / MADM Date: 03/18/21Loc: [facility]: Ordering Physician: EUSEBIO SCHAFER NP Date of Service: 03/18/21 Procedure(s): XR chest 2V Accession Number(s): [id number] cc: EUSEBIO SCHAFER NP~ EXAMINATION: XR CHEST CLINICAL INFORMATION: Cough. Evaluate for pneumonia. COMPARISON: Previous chest x-ray most recent November [address] December 2020 TECHNIQUE: 2 views of the chest were obtained. FINDINGS: Lateral view is limited due to patient rotation. The cardiac and mediastinal contours are stable. The lungs are well inflated suggestive of COPD. There may be subsegmental atelectasis at the left lung base. The lungs are otherwise clear without evidence of a pneumonia. There is no pleural effusion or pneumothorax. There are degenerative changes of the spine. XR/XR chest 2V IMPRESSION: Well-inflated lungs suggestive of COPD. Subsegmental atelectasis at the left lung base. No definite pneumonia is seen. CT scan - chest: Attestation: I personally reviewed and interpreted this imaging study as follows: Radiologist's impression: Interval improvement of the more confluent ground-glass and semisolid opacities in bilateral hemithoraces, with persistent ground-glass opacities, reticular nodular opacities in bilateral lungs, more prominent in the [id number] lungs. Findings suggest improving but persistent inflammatory or infectious process. Recommend ongoing follow up to resolution. ECG Data Attestation: I personally reviewed and interpreted this ECG as follows: Interpretation: NSR with rate 77, normal pr, normal qrs, normal qtc Discharge Plan Discharge Clinical Impression: Pneumonia, UTI (urinary tract infection) Patient Disposition: Home, Self-Care Instructions: Bacterial Pneumonia (ED), Urinary Tract Infection in Older Adults (ED) Additional Instructions: Increase fluids, rest Return for increasing weakness, shortness of breath, fever greater than 100.4 Prescriptions: New amoxicillin-pot clavulanate [Augmentin] 875-125 mg tablet 1 tab PO Q12H Qty: 14 RF: 0 No Action fluticasone propionate 50 mcg/actuation spray,suspension 2 spray intranasal QAM RF: 0 albuterol sulfate 90 mcg/actuation HFA aerosol inhaler 2 puff PO Q4H PRN (Reason: dyspnea) RF: 0 oxcarbazepine 150 mg Tablet 150 mg PO BID RF: 0 sennosides [Senna Lax] 8.6 mg Tablet 8.6 mg PO BID PRN (Reason: Constipation) RF: 0 sucralfate 1 gram Tablet 0.5 g PO TID RF: 0 ondansetron HCl [Zofran] 4 mg Tablet 4 mg PO Q6H PRN (Reason: Nausea) RF: 0 lorazepam 0.5 mg Tablet 0.5 mg PO DAILY PRN (Reason: Anxiety) RF: 0 mirtazapine 30 mg Tablet 30 mg PO BEDTIME RF: 0 omeprazole 20 mg Capsule,Delayed Release(Dr/Ec) 20 mg PO BID RF: 0 folic acid 1 mg Tablet 1 mg PO DAILY RF: 0 metoprolol succinate 25 mg Tablet Extended Release 24 Hr 25 mg PO DAILY RF: 0 docusate sodium 100 mg Tablet 100 mg PO BID PRN (Reason: Constipation) RF: 0 finasteride 5 mg Tablet 5 mg PO BEDTIME RF: 0 carbidopa-levodopa 25-100 mg Tablet,Disintegrating 2 tab PO 5XD RF: 0 ferrous gluconate 324 mg (38 mg iron) Tablet 324 mg PO DAILY RF: 0 cholecalciferol (vitamin D3) [Vitamin D3] 50 mcg (2,000 unit) Capsule 50 mcg PO DAILY RF: 0 oxycodone 7.5 mg Tablet, Oral Only 7.5 mg PO BID RF: 0 Myrbetriq 50 mg Tablet Extended Release 24 Hr 50 mg PO DAILY RF: 0 polyethylene glycol 3350 [Miralax] 17 gram/dose Powder 17 g PO DAILY PRN (Reason: Constipation) RF: 0 duloxetine 20 mg Capsule,Delayed Release(Dr/Ec) 20 mg PO BID RF: 0 cetirizine 10 mg Tablet 10 mg PO DAILY RF: 0 meloxicam 7.5 mg Tablet 7.5 mg PO DAILY PRN (Reason: Pain) RF: 0 vitamin B complex Capsule 2 cap PO DAILY RF: 0 guaifenesin 100 mg/5 mL Liquid 300 mg PO Q4H PRN (Reason: COUGH) RF: 0 ketoconazole 2 % Shampoo 1 appl TOPICAL 2XW PRN (Reason: RASH) RF: 0 lidocaine 4 % Cream 1 appl TOPICAL BID PRN (Reason: Pain) RF: 0 amoxicillin-pot clavulanate [Augmentin] 875-125 mg tablet 1 tab PO Q12H 4 Days Qty: 8 RF: 0 Referrals: Kimberly Jha MD [Primary Care Provider] - 2 days Interventions: ED Discharge Assessment Last Done: 03/18/21 19:09 Discharge Date/Time: 03/18/21 19:09
[2021-03-18 14:38] LABS: Basophils Absolute Auto 0.1 X10*3/uL (0.0-0.2); Basophils Percent Auto 1.6 % (0-2); Eosinophils Percent Auto 0.9 % (0-4); Hemoglobin 12.2 g/dl (14.0-18.0); Imm Gran Abs Auto 0.02 X10*3/uL (0.00-0.03); Imm Gran Pct Auto 0.4 % (0.0-0.4); Lymphocytes Absolute Auto 0.7 X10*3/uL (1.2-4.9); Lymphocytes Percent Auto 15.2 % (20-40); MANUAL DIFF FLAG SCAN; Mean Corpuscular HGB Conc 32.1 g/dl (31.0-36.0); Mean Corpuscular Hemoglobin 28.9 pg (27.0-33.0); Mean Platelet Volume 10.6 fL (9.4-12.4); Monocytes Absolute Auto 0.3 X10*3/uL (0.1-1.2); Monocytes Percent Auto 7.6 % (2-11); Neutrophils Absolute Auto 3.3 X10*3/uL (2.0-8.3); Neutrophils Percent Auto 74.3 % (45-73); Platelet Count 279 X10*3/uL (160-400); Red Blood Count 4.22 X10*6/uL (4.60-5.80); Red Cell Distribution Width 13.6 % (11.0-16.0); SCAN SMEAR FLAG 1; White Blood Count 4.5 X10*3/uL (4.8-10.8)
[2021-03-18 14:42] LABS: Glucose Urine UA NEG (NEG); Leukocyte Esterase Urine NEG (NEG); Nitrite Urine NEG (NEG); Urine Blood NEG (NEG); Urine Ketones 15 MG/DL (NEG); Urine Protein 1+ MG/DL (NEG-TRACE)
[2021-03-18 14:46] LABS: Prothrombin Time 12.4 SEC (10.8-13.0)
[2021-03-18 14:47] LABS: Appearance Urine HAZY; Color Urine YELLOW
[2021-03-18 14:52] LABS: Lactic Acid 0.9 mmol/L (0.5-2.0)
[2021-03-18 14:56] LABS: SLIDE REVIEW VERIFIED
[2021-03-18 14:58] LABS: Amorphous Sediment Urine 2+ /LPF; Bacteria Urine 1+ /LPF; Squamous Epithelial Cell Urine TRACE /LPF; UACC CULT YES
[2021-03-18 15:02] LABS: Troponin-I High Sensitivity < 3.5 ng/L (<3.5-35.0)
[2021-03-18 15:40] LABS: Alanine Aminotransferase < 6 U/L (0-40); Albumin Level 3.6 g/dL (3.5-5.0); Alkaline Phosphatase 115 U/L (39-117); Anion Gap 9 (12-20); Aspartate Amino Transferase 10 U/L (5-37); Bilirubin Direct 0.2 mg/dL (0.0-0.5); Bilirubin Total 0.5 mg/dL (0.0-1.0); Blood Urea Nitrogen 16 mg/dL (9-16); Calcium 9.1 mg/dL (8.4-10.2); Carbon Dioxide 32 mmol/L (22-29); Chloride 103 mmol/L (96-108); Creatinine Clr Calc Pharmacy 37.7; Estimated Glomerular Filt Rate > 60; Glucose Random 137 mg/dL (60-115); Magnesium 1.9 mg/dL (1.6-2.6); Sodium 140 mmol/L (135-145); Total Protein 6.3 g/dL (6.5-8.0)
[2021-03-18 16:00] VITALS: O2SAT 95
[2021-03-18 18:50] VITALS: O2SAT 94
== END 2021-03-18 19:09 | disposition home or self-care (01) ==
PROVIDERS: Nurse Practitioner Family; Emergency Provider Emergency Medicine; PCP Internal Medicine
DX: J15.9 Unspecified bacterial pneumonia (principal); N39.0 Urinary tract infection, site not specified; J44.9 Chronic obstructive pulmonary disease, unspecified; I10 Essential (primary) hypertension; G20 Parkinson's disease
CPT/HCPCS: 36415; 71046; 71250; 80048; 80076; 81001; 83605; 83735; 84484; 85025; 85610; 87040; 87086; 93005; 99285